=== PATIENT | male | born 1945 | race Two or more races ===

== ENCOUNTER → 2020-06-10 12:54 | Outpatient (BNVA) | payer MEDICARE, SELFPAY | PROVIDERS: PCP Internal Medicine; Referring Provider Internal Medicine; Visit Provider Student in an Organized Health Care Education/Training Program | DX: M1A.00X0 Idiopathic chronic gout, unspecified site, without tophus (tophi) (principal) | CPT/HCPCS: 99212 ==

== ENCOUNTER 2020-07-08 12:46 | Outpatient (REF) | payer MEDICARE, MEDICAID, SELFPAY ==
[2020-07-08 14:24] LABS: Uric Acid 3.7 mg/dL (3.4-7.0)
[2020-07-08 14:45] LABS: Thyroid Stimulating Hormone 1.24 uIU/mL (0.32-4.0)
== END 2020-07-08 12:47 | disposition home or self-care (01) ==
LOC: HO.LAB 12:46
PROVIDERS: Absent Provider Student in an Organized Health Care Education/Training Program; PCP Internal Medicine; Visit Provider Internal Medicine
DX: E03.9 Hypothyroidism, unspecified (principal); M10.9 Gout, unspecified
CPT/HCPCS: 84443; 84550

== ENCOUNTER 2020-10-09 10:10 | Outpatient (REF) | payer MEDICARE, MEDICAID, SELFPAY ==
[2020-10-09 11:40] LABS: MANUAL DIFF FLAG NO
[2020-10-09 11:54] LABS: Basophils Percent Auto 0.4 % (0-2); Eosinophils Absolute Auto 0.5 X10*3/uL (0.0-0.4); Eosinophils Percent Auto 4.9 % (0-4); Hematocrit 37.4 % (42-52); Hemoglobin 12.9 g/dl (14.0-18.0); Imm Gran Abs Auto 0.03 X10*3/uL (0.00-0.03); Imm Gran Pct Auto 0.3 % (0.0-0.4); Lymphocytes Absolute Auto 2.1 X10*3/uL (1.2-4.9); Mean Corpuscular HGB Conc 34.5 g/dl (31.0-36.0); Monocytes Absolute Auto 0.9 X10*3/uL (0.1-1.2); Monocytes Percent Auto 8.6 % (2-11); Neutrophils Absolute Auto 7.3 X10*3/uL (2.0-8.3); Neutrophils Percent Auto 66.8 % (45-73); Platelet Count 268 X10*3/uL (160-400); Red Cell Distribution Width 16.9 % (11.0-16.0); White Blood Count 10.9 X10*3/uL (4.8-10.8)
[2020-10-09 12:56] LABS: Anion Gap 14 (12-20); Blood Urea Nitrogen 18 mg/dL (9-16); Calcium 9.4 mg/dL (8.4-10.2); Carbon Dioxide 30 mmol/L (22-29); Chloride 100 mmol/L (96-108); Estimated Glomerular Filt Rate > 60; Glucose Random 95 mg/dL (60-115); Sodium 139 mmol/L (135-145); Uric Acid 3.2 mg/dL (3.4-7.0)
== END 2020-10-09 10:11 | disposition home or self-care (01) ==
LOC: HO.LAB 10:10
PROVIDERS: Student in an Organized Health Care Education/Training Program; PCP Internal Medicine; Visit Provider Internal Medicine
DX: Z00.00 Encounter for general adult medical examination without abnormal findings (principal); M1A.00X0 Idiopathic chronic gout, unspecified site, without tophus (tophi); R51.9 Headache, unspecified
CPT/HCPCS: 36415; 80048; 84550; 85025

== ENCOUNTER → 2021-06-09 12:21 | Outpatient (BNVA) | payer MEDICARE, MEDICAID, SELFPAY | PROVIDERS: PCP Internal Medicine; Visit Provider Nurse Practitioner Family | DX: M10.9 Gout, unspecified (principal) | CPT/HCPCS: 99212 ==

== ENCOUNTER 2022-04-27 07:11 | Outpatient (REF) | payer MEDICARE, SELFPAY ==
[2022-04-27 07:26] LABS: MANUAL DIFF FLAG NO
[2022-04-27 07:41] LABS: Basophils Absolute Auto 0.1 X10*3/uL (0.0-0.2); Basophils Percent Auto 0.5 % (0-2); Eosinophils Absolute Auto 0.4 X10*3/uL (0.0-0.4); Eosinophils Percent Auto 3.6 % (0-4); Hematocrit 36.6 % (42.0-52.0); Hemoglobin 12.9 g/dl (14.0-18.0); Imm Gran Abs Auto 0.05 X10*3/uL (0.00-0.03); Imm Gran Pct Auto 0.4 % (0.0-0.4); Lymphocytes Absolute Auto 3.1 X10*3/uL (1.2-4.9); Mean Corpuscular HGB Conc 35.2 g/dl (31.0-36.0); Mean Corpuscular Hemoglobin 33.3 pg (27.0-33.0); Mean Corpuscular Volume 94.6 fL (80.0-98.0); Mean Platelet Volume 10.6 fL (9.4-12.4); Monocytes Absolute Auto 1.1 X10*3/uL (0.1-1.2); Monocytes Percent Auto 9.8 % (2-11); Neutrophils Absolute Auto 6.5 x10*3/uL (2.0-8.3); Neutrophils Percent Auto 57.7 % (45-73); Platelet Count 197 X10*3/uL (160-400); Red Blood Count 3.87 X10*6/uL (4.60-5.80); Red Cell Distribution Width 15.7 % (11.0-16.0); White Blood Count 11.2 X10*3/uL (4.8-10.8)
[2022-04-27 07:59] LABS: Alanine Aminotransferase 27 U/L (0-40); Albumin Level 3.8 g/dL (3.5-5.0); Alkaline Phosphatase 111 U/L (39-117); Anion Gap 17 (12-20); Aspartate Amino Transferase 45 U/L (5-37); Bilirubin Total 0.8 mg/dL (0.0-1.0); Blood Urea Nitrogen 20 mg/dL (9-16); Calcium 9.2 mg/dL (8.4-10.2); Carbon Dioxide 24 mmol/L (22-29); Chloride 106 mmol/L (96-108); Cholesterol 157 mg/dL; Estimated Glomerular Filt Rate > 60; Glucose Fasting 101 mg/dL (60-99); HDL Cholesterol 74 mg/dL; LDL Cholesterol Calculated 63 mg/dl; Potassium 4.6 mmol/L (3.3-5.1); Sodium 142 mmol/L (135-145); Total Protein 6.6 g/dL (6.5-8.0); Triglycerides 103 mg/dL; Uric Acid 3.4 mg/dL (3.4-7.0)
[2022-04-27 08:21] LABS: Thyroid Stimulating Hormone 0.91 uIU/mL (0.32-4.0)
== END 2022-04-27 07:12 | disposition home or self-care (01) ==
LOC: HO.LAB 07:11
PROVIDERS: PCP Internal Medicine; Visit Provider Internal Medicine
DX: Z00.00 Encounter for general adult medical examination without abnormal findings (principal); M10.9 Gout, unspecified; Z13.0 Encounter for screening for diseases of the blood and blood-forming organs and certain disorders involving the immune mechanism
CPT/HCPCS: 36415; 80053; 80061; 84443; 84550; 85025

== ENCOUNTER 2023-01-04 08:48 | Outpatient (REF) | payer MEDICARE, SELFPAY ==
[2023-01-04 09:11] LABS: MANUAL DIFF FLAG NO
[2023-01-04 09:45] LABS: Basophils Percent Auto 0.4 % (0-2); Eosinophils Absolute Auto 0.1 X10*3/uL (0.0-0.4); Eosinophils Percent Auto 0.8 % (0-4); Hematocrit 37.8 % (42.0-52.0); Hemoglobin 13.1 g/dl (14.0-18.0); Imm Gran Abs Auto 0.05 X10*3/uL (0.00-0.03); Imm Gran Pct Auto 0.5 % (0.0-0.4); Lymphocytes Absolute Auto 1.9 X10*3/uL (1.2-4.9); Lymphocytes Percent Auto 17.5 % (20-40); Mean Corpuscular HGB Conc 34.7 g/dl (31.0-36.0); Mean Corpuscular Hemoglobin 33.2 pg (27.0-33.0); Mean Corpuscular Volume 95.7 fL (80.0-98.0); Mean Platelet Volume 10.7 fL (9.4-12.4); Monocytes Absolute Auto 0.9 X10*3/uL (0.1-1.2); Monocytes Percent Auto 8.7 % (2-11); Neutrophils Absolute Auto 7.7 x10*3/uL (2.0-8.3); Neutrophils Percent Auto 72.1 % (45-73); Platelet Count 189 X10*3/uL (160-400); Red Blood Count 3.95 X10*6/uL (4.60-5.80); Red Cell Distribution Width 15.6 % (11.0-16.0); White Blood Count 10.6 X10*3/uL (4.8-10.8)
[2023-01-04 10:37] LABS: Alanine Aminotransferase 26 U/L (0-40); Albumin Level 3.8 g/dL (3.5-5.0); Alkaline Phosphatase 100 U/L (39-117); Anion Gap 17 (12-20); Aspartate Amino Transferase 50 U/L (5-37); Bilirubin Total 1.2 mg/dL (0.0-1.0); Blood Urea Nitrogen 27 mg/dL (9-16); Calcium 9.5 mg/dL (8.4-10.2); Carbon Dioxide 24 mmol/L (22-29); Chloride 106 mmol/L (96-108); Cholesterol 146 mg/dL; Estimated Glomerular Filt Rate > 60; Glucose Fasting 98 mg/dL (60-99); HDL Cholesterol 77 mg/dL; LDL Cholesterol Calculated 54 mg/dl; Potassium 5.1 mmol/L (3.3-5.1); Sodium 142 mmol/L (135-145); Total Protein 6.9 g/dL (6.5-8.0); Triglycerides 76 mg/dL
[2023-01-04 10:56] LABS: Thyroid Stimulating Hormone 0.73 uIU/mL (0.32-4.0); Uric Acid 3.6 mg/dL (3.4-7.0)
== END 2023-01-04 08:49 | disposition home or self-care (01) ==
LOC: HO.LAB 08:48
PROVIDERS: PCP Internal Medicine; Visit Provider Internal Medicine
DX: E03.9 Hypothyroidism, unspecified (principal); D64.9 Anemia, unspecified; N28.9 Disorder of kidney and ureter, unspecified; M10.9 Gout, unspecified
CPT/HCPCS: 36415; 80053; 80061; 84443; 84550; 85025

== ENCOUNTER 2023-02-03 20:18 | Emergency (ER) | payer MEDICARE, MEDICAID, SELFPAY ==
--- NOTE | ~2023-02-03 | XR_ITS ---
EXAMINATION: XR SHOULDER, RIGHT CLINICAL INFORMATION: Fall. Pain. COMPARISON: None available. TECHNIQUE: Three views of the right shoulder. FINDINGS: Comminuted fracture of the humeral head. Fracture through the surgical neck extending into the greater tuberosity. Fracture fragments are mildly moderately displaced. Fracture deformity further defined with CT. No dislocation. Mild degenerative change of the acromioclavicular joint. XR/XR shoulder RT min 2V IMPRESSION: Comminuted fracture of the humeral head.
--- NOTE | 2023-02-03 20:27 | ED_ITS ---
HPI - Fall General Chief Complaint: Fall Stated Complaint: FALL WITH R SHOULDER DEFORMITY Time Seen by Provider: 02/03/23 20:27 Source: patient Mode of arrival: EMS Limitations: no limitations History of Present Illness HPI Narrative: Patient alcoholic walks with a cane had last drink earlier morning today patient was walking on the pavement lost balance and fell landed on his right shoulder, no loss of consciousness hitting his right shoulder to the ground no head injury no other injuries give with ecchymosis and obvious deformity of the right shoulder no other injuries Related Data Home Medications Medication Instructions Recorded Confirmed naproxen 250 mg tablet 250 mg PO BID PRN 06/09/21 11/10/22 Previous Rx's Medication Instructions Recorded folic acid 1 mg tablet 1 mg PO DAILY #30 tabs 06/25/21 allopurinol 300 mg tablet 300 mg PO DAILY #90 tabs 08/18/22 omeprazole 20 mg capsule,delayed 20 mg PO DAILY #90 caps 08/18/22 release triamcinolone acetonide 0.5 % 1 appl topical TID #15 grams 11/10/22 topical cream oxycodone 5 mg tablet 5 mg PO Q6H PRN pain #20 tabs 02/03/23 Allergies Allergy/AdvReac Type Severity Reaction Status Date / Time No Known Allergies Allergy Verified 11/10/22 10:29 [No Known Allergies*] Review of Systems Review of Systems: Yes all other systems are reviewed and are negative PMFSH Past Medical History Medical History Gout Hx of essential hypertension Hypertension Screening for hypercholesterolemia Surgical History No pertinent past surgical history Family History Family History Mother Ovarian cancer Father Heart attack Social History Social History Housing: House Alcohol intake: current Alcohol intake frequency: a few times a week Alcohol type: beer and hard liquor Patient Tobacco Use Status: Current everyday Tobacco user Tobacco use type: Cigarette Cigarettes Per Day: 8 Years Smoked: 55 e-Cigarette/Vaping Use: Never Used Second Hand Smoke Exposure: Yes Advance Directives: No Advance Directives Information Provided: No service: No Current occupational status: retired Cognitive needs: Yes (cane/walker) Hearing needs: No Vision needs: Yes (glasses) Physical Exam Vital Signs: Vital Signs: Last Vital Signs Temp 97.9 F 02/04/23 00:00 Pulse 84 02/04/23 00:00 Resp 16 02/04/23 00:00 BP 97/50 L 02/04/23 00:00 Pulse Ox 94 02/04/23 00:00 O2 Del Method Room Air 02/04/23 00:00 BMI result Body Mass Index 22.1 Appearance: Alert. Oriented X3. No acute distress. Eyes: PERRLA, No Nystagmus ENT: Pharynx normal. Oral Mucosa moist atraumatic normocephalic Neck: Normal inspection. Neck supple. No midline tenderness CVS: Normal heart rate and rhythm. Pulses normal. Respiratory: No respiratory distress. Equal air entry bilateral, no wheezing/rales/rhonchi Abdomen: Soft and nontender. Bowel sounds are present, no mass palpable, no CVA tenderness Skin: Skin warm and dry. Normal skin color. Normal skin turgor. Extremities: No lower extremity edema. No calf tenderness right arm in the sling with ecchymosis and tenderness and upper end humerus Neuro: Oriented X 3. No motor deficit. No sensory deficit.No cerebellar signs , cranial nerves II-XII intact Medications Administered Discontinued Medications Generic Name Dose Route Start Last Admin Trade Name Freq PRN Reason Stop Dose Admin Oxycodone HCl 10 mg 02/03/23 20:59 02/03/23 21:33 Oxycodone Hcl Immed Release 5 Mg Tablet PO 02/03/23 21:00 10 mg ONCE ONE Administration Medical Decision Making Medical Decision Making [facility] Narrative: Patient status post mechanical fall with right upper and feet humerus fracture sling was applied advised to follow with orthopedic no other injuries patient was able to ambulate in the ER Discharge Plan Discharge Clinical Impression: Right humeral fracture Patient Disposition: Home, Self-Care Instructions: Arm Fracture in Adults (ED) Additional Instructions: You have fracture of the right humerus Wear the sling for support Follow-up with orthopedics Pain medication as prescribed Prescriptions: New oxycodone 5 mg tablet 5 mg PO Q6H PRN (Reason: pain) Qty: 20 0RF Rx Instructions: Partial Fill upon patient request. No Action omeprazole 20 mg capsule,delayed release(DR/EC) 20 mg PO DAILY Qty: 90 8RF allopurinol 300 mg tablet 300 mg PO DAILY Qty: 90 8RF folic acid 1 mg tablet 1 mg PO DAILY Qty: 30 0RF triamcinolone acetonide 0.5 % cream 1 appl topical TID Qty: 15 3RF naproxen 250 mg tablet 250 mg PO BID PRN Referrals: Sameer Mendez MD [Physician] - 1 week Interventions: ED Discharge Assessment Last Done: 02/04/23 00:10 Discharge Date/Time: 02/04/23 00:13
[2023-02-03 20:44] VITALS: BP 122/60; PULSE 101; O2SAT 94; BMI 22.1
[2023-02-03 21:32] VITALS: BP 119/74; PULSE 109; RESP 16; TEMP 36.9; O2SAT 94
[2023-02-03] MEDS: oxyCODONE HCl Immed Release 5 MG TABLET 10 MG PO (21:33)
[2023-02-04] VITALS: BP 97/50; PULSE 84; RESP 16; TEMP 36.6; O2SAT 94
== END 2023-02-04 00:13 | disposition home or self-care (01) ==
PROVIDERS: Emergency Provider Internal Medicine
DX: S42.301A Unspecified fracture of shaft of humerus, right arm, initial encounter for closed fracture (principal); F17.210 Nicotine dependence, cigarettes, uncomplicated; W01.0XXA Fall on same level from slipping, tripping and stumbling without subsequent striking against object, initial encounter; Y93.9 Activity, unspecified; Y92.9 Unspecified place or not applicable; Y99.9 Unspecified external cause status; Z79.899 Other long term (current) drug therapy; Z71.6 Tobacco abuse counseling
CPT/HCPCS: 73030; 99283; 99284

== ENCOUNTER 2023-02-21 08:15 | Outpatient (AMB) | payer MEDICARE, SELFPAY ==
--- NOTE | 2023-02-21 08:24 | A.OFFVIS_ITS ---
Intake Vital Signs 02/21/23 08:31 Height 5 ft 3 in Weight 100 lb BMI 17.7 Intake Visit Reasons: FC - Right shoulder fx, 02/03/23 Intake Note: Rikki is a 77 year old right hand dominant male who presents today with his nephew for a fracture care appointment s/p right shoulder fx, DOI 02/03/23. Patient reports he was walking without a cane and he fell on the pavement landing on his right side. Patient states his pain is on the anterior aspect of the right shoulder. Allergies No Known Allergies [No Known Allergies*] Allergy (Verified 02/21/23 08:30) HPI FC - Right shoulder fx, 02/03/23 HPI Details 74-year-old right hand dominant male who presents in the office today with his nephew, as a new patient, for an evaluation of right shoulder pain. The patient was seen in the ED on 02/03/2023 status post being under the influence of alcohol which caused him to lose his balance and he fell landing on his right shoulder. X-rays of the right shoulder were obtained. He was placed in a sling and referred to orthopedics. The patient reports in the office he was ambulating without his cane when he fell on the pavement landing on his right side. He claims his pain is on the anterior aspect of the right shoulder. He states he is sore. Patient ambulates with a cane. [facility] Medical History Gout Hx of essential hypertension Hypertension Screening for hypercholesterolemia Surgical History No pertinent past surgical history Family History Mother Ovarian cancer Father Heart attack Social History Housing: House Alcohol intake: current Alcohol intake frequency: a few times a week Alcohol type: beer and hard liquor Patient Tobacco Use Status: Current everyday Tobacco user Tobacco use type: Cigarette Cigarettes Per Day: 8 Years Smoked: 55 e-Cigarette/Vaping Use: Never Used Second Hand Smoke Exposure: Yes service: No Current occupational status: retired Cognitive needs: Yes (cane/walker) Hearing needs: No Vision needs: Yes (glasses) Review of Systems Const All systems reviewed & are unremarkable except as noted in HPI and below Physical Exam Vital Signs: BMI result Body Mass Index 17.7 Const General: cooperative, healthy appearing, comfortable, no acute distress, well developed and alert Orientation/consciousness: patient oriented x3 HEENT Head: Yes normal to inspection, Yes normocephalic and Yes atraumatic Eyes General: appearance normal, both eyes and all related structures Resp Effort & Inspection: normal respiratory effort and able to speak in complete sentences Cardio Rate: regular rate Peripheral pulses: Peripheral pulses 2+ throughout GI Palpation (GI): Soft to palpation Skin Lesions: no lesions Rashes: no rashes Neuro General: patient oriented x3 Extrem Other: Right shoulder: Able to demonstrate 10 degrees of forward flexion. Able to demonstrate wrist flexion against resistance, but is significantly limited due to weakness. Edema in the hand and all digits. Sensation intact. Office Procedures Fracture Care Fracture Billing Code: Fracture Billing Code Assessment & Plan Assessment & Plan (1) Comminuted fracture of right humerus: Code(s): S42.351A - Displaced comminuted fracture of shaft of humerus, right arm, initial encounter for closed fracture Plan Mr. Razo is a 74-year-old right hand dominant male who presents in the office today with his nephew, as a new patient, for an evaluation of right shoulder pain. The patient was seen in the ED on 02/03/2023 status post being under the influence of alcohol which caused him to lose his balance and he fell landing on his right shoulder. X-rays of the right shoulder were obtained. He was placed in a sling and referred to orthopedics. The patient reports in the office he was ambulating without his cane when he fell on the pavement landing on his right side. He claims his pain is on the anterior aspect of the right shoulder. He states he is sore. Patient ambulates with a cane. I educated the patient he can work on gentle elbow, wrist, and hand ROM. I discussed the roles of conservative treatment verses surgical intervention. I will refer the patient for physical therapy to work on ROM of the elbow, wrist, and hand with some gentle shoulder ROM. Due to the patient stating his sling was broken he was given a new ultra sling without the abduction pillow, off the shelf. I educated the patient that while at home he should let the hand hang. Follow up will be in 4-6 weeks with x-rays, or sooner if needed. X-rays of the right shoulder which were obtained while in the office today and were reviewed by me, Sarah Quintana PA-C, redemonstrated a comminuted right proximal humerus fracture. X-rays of the right shoulder, obtained on 02/03/2023, revealed: Comminuted fracture of the humeral head. Orders: Orders XR shoulder RT min 2V Today M25.519 - Pain in unspecified shoulder PT Evaluation and Treatment Today S42.351A - Displaced comminuted fracture of shaft of humerus, right arm, initial encounter for closed fracture Patient Instructions: Scribed for Sarah Quintana PA-C by Paulina Marrero director medical writing, on 02/21/2023 at 8:16 am, EST. Your attestation Coding Level of Care Code New Pt Level 4 (89669) Diagnoses Comminuted fracture of right humerus S42.351A CPT Codes Fracture Care - Fracture Billing Code: Fracture Billing Code ([id number])
[2023-02-21 08:31] VITALS: BMI 17.7
== END 2023-02-21 09:00 | disposition home or self-care (01) ==
PROVIDERS: Visit Provider Physician Assistant
DX: S42.351A Displaced comminuted fracture of shaft of humerus, right arm, initial encounter for closed fracture (principal); M25.511 Pain in right shoulder
CPT/HCPCS: 99204

== ENCOUNTER 2023-02-21 11:21 | Outpatient (REF) | payer MEDICARE, SELFPAY ==
--- NOTE | ~2023-02-21 | XR_ITS ---
EXAMINATION: XR SHOULDER, RIGHT CLINICAL INFORMATION: Pain COMPARISON: 02/03/2023 TECHNIQUE: Two views of the right shoulder. FINDINGS: Comminuted progressively impacted and minimally displaced fracture of the humeral neck is again seen. There is more progressive rotation and angulation to the fracture when compared to the prior study. Heterotopic ossification formation starting to appear. Mild hypertrophic degenerative changes in the acromioclavicular joint XR/XR shoulder RT min 2V IMPRESSION: Comminuted progressively impacted and angulated fracture of the right humeral neck. There is more progressive rotation and angulation when compared to the prior study.
== END 2023-02-21 11:22 | disposition home or self-care (01) ==
LOC: HO.HOSX 11:21
PROVIDERS: Visit Provider Physician Assistant
DX: S42.351A Displaced comminuted fracture of shaft of humerus, right arm, initial encounter for closed fracture (principal); W18.30XA Fall on same level, unspecified, initial encounter; Y93.9 Activity, unspecified; Y92.9 Unspecified place or not applicable; Y99.9 Unspecified external cause status
CPT/HCPCS: 73030; 99202

== ENCOUNTER 2023-03-21 12:30 | Outpatient (REF) | payer MEDICARE, SELFPAY | END 2023-03-21 12:31 | disposition home or self-care (01) | LOC: HO.HOSX 12:30 | PROVIDERS: Visit Provider Physician Assistant | DX: Z13.89 Encounter for screening for other disorder (principal) ==

== ENCOUNTER 2023-05-09 10:59 | Outpatient (AMB) | payer MEDICARE, SELFPAY ==
[2023-05-09 11:02] VITALS: BP 128/68; PULSE 85; O2SAT 98; BMI 16.3
--- NOTE | 2023-05-09 11:02 | MHC.PC.OV ---
Vital Signs 05/09/23 11:02 Height 5 ft 3 in Weight 92 lb BMI 16.3 BP 128/68 Blood Pressure Location Lt brachial Position Sitting Pulse 85 Pulse Source Pulse Oximeter Pulse Oximetry (%) 98 Oxygen Delivery Method Room Air Intake Visit Reasons: 3 month f/u Flight Hostess: Present Allergies No Known Allergies [No Known Allergies*] Allergy (Verified 05/09/23 11:03) Medication List - Last Reconciled 05/09/23 by Noah Alvarenga MD allopurinol 300 mg PO DAILY folic acid 1 mg PO DAILY naproxen 250 mg PO BID PRN omeprazole 20 mg PO DAILY oxycodone 5 mg PO Q6H PRN oxycodone 10 mg PO Q6H PRN triamcinolone acetonide 0.5% 1 appl topical TID Tobacco use date assessed: 02/10/23 Fall risk assessment: 1 Fall in past year Last assessed Fall Risk: 05/09/23 Dental Screening Dental Screen Date: 05/09/23 Did you have a dental visit in the last 12 months?: No Did you have a dental problem in the last 6 months where you did not have access to dental care?: No Was dental information given to patient?: Patient has dentist HPI 3 month f/u HPI Details comminuted fx right hum 3 months ago; was in rehab but I will not prescribe narcotics for an injury that occurred 3 months ago; gout on rx [facility] Medical History Screening for hypercholesterolemia Hypertension Gout Hx of essential hypertension Surgical History No pertinent past surgical history Family History Mother Ovarian cancer Father Heart attack Social History Housing: House Alcohol intake: current Alcohol intake frequency: a few times a week Alcohol type: beer and hard liquor Patient Tobacco Use Status: Current everyday Tobacco user Tobacco use type: Cigarette Cigarettes Per Day: 8 Years Smoked: 55 e-Cigarette/Vaping Use: Never Used Second Hand Smoke Exposure: Yes service: No Current occupational status: retired Cognitive needs: Yes (cane/walker) Hearing needs: No Vision needs: Yes (glasses) Questionnaire PHQ-9 Over the last 2 weeks, how often have you been bothered by any of the following problems? 1. Little interest or pleasure in doing things: not at all 2. Feeling down, depressed, or hopeless: not at all 3. Trouble falling or staying asleep, or sleeping too much: not at all 4. Feeling tired or having little energy: not at all 5. Poor appetite or overeating: not at all 6. Feeling bad about yourself - or that you are a failure or have let yourself or your family down: not at all 7. Trouble concentrating on things, such as reading the newspaper or watching television: not at all 8. Moving or speaking so slowly that other people could have noticed. Or the opposite - being so fidgety or restless that you have been moving around a lot more than usual: not at all 9. Thoughts that you would be better off or of hurting yourself in some way: not at all Total score: 0 Depression Screening Interpretation: Negative [id number] - PHQ-9 Billing: Yes Source: Developed by Drs. King García, Amrita Macdonald, David Larios and colleagues, with an educational marcella from [employer]. Thrive Questionnaire Date Thrive assessed: 11/10/22 Currently or been in a relationship where the following occur: no concerns reported AUDIT C Alcohol Use Questionnaire (AUDIT-C) 1. How often do you have a drink containing alcohol?: 2-3 times a week 2. How many drinks containing alcohol do you have on a typical day when you are drinking?: 1 or 2 Total Score: 3 Score Reviewed/Action Taken: Yes SRAVAN-7 AMB Questionnaire SRAVAN-7 Date SRAVAN - 7 assessed: 11/10/22 Source: Developed by Drs. King García, Amrita Macdonald, David Larios and colleagues, with an educational marcella from [employer]. Review of Systems Const Denies chills, Denies headache(s) and Denies weight loss ENT Denies headache(s) Card Denies chest pain, Denies syncope, Denies irregular heart rhythm and Denies dyspnea Resp Denies chest congestion, Denies cough and Denies dyspnea GI Denies abdominal pain, Denies change in stool character, Denies nausea and Denies vomiting Musc Denies deformity and Denies joint swelling Neuro Denies syncope and Denies headache(s) Physical exam (Primary Care) Vital Signs: Last Vital Signs Pulse 85 05/09/23 11:02 BP 128/68 05/09/23 11:02 Pulse Ox 98 05/09/23 11:02 Oxygen Delivery Method Room Air 05/09/23 11:02 BMI result Body Mass Index 16.3 Tobacco/Smoking Status: Tobacco use Status Tobacco use date assessed 02/10/23 05/09/23 11:04 Patient Tobacco Use Status Current everyday Tobacco 05/09/23 11:04 Tobacco use type Cigarette 05/09/23 11:04 e-Cigarette/Vaping Use Never Used 05/09/23 11:04 Are you ready to quit: No Number of minutes spent counselin PHQ-9: PHQ-9 Score PHQ-9: Total score 0 05/09/23 11:15 Depression Screening Interpretation: Negative Thrive Assessment: Date of Thrive Assessment Date Thrive assessed 11/10/22 05/09/23 11:04 Currently or been in a relationship where the following occur: no concerns reported Advance Care Planning discussion: On file, no changes Forms completed: Health Care Proxy Const General: cooperative, healthy appearing and no acute distress Orientation/consciousness: oriented to person, oriented to place and oriented to time HENPR Head: Yes normal to inspection, Yes normocephalic and Yes atraumatic Mouth: Normal oral and palatal mucosa present and tongue normal Throat: Yes posterior oropharynx normal and Yes uvula midline Eyes General: appearance normal, both eyes and all related structures Neck Neck: Yes normal visual inspection, Yes full ROM and Yes no lymphadenopathy Thyroid: Thyroid normal Carotids: normal carotid upstroke Chest Chest palpation & inspection: normal inspection of the chest Resp Effort & Inspection: normal respiratory effort and able to speak in complete sentences Auscultation: clear to auscultation bilaterally Cardio Jugular venous distension: no JVD Palpation: normal PMI Rate: regular rate Rhythm: regular rhythm Heart sounds: S1 normal heart sound present and S2 normal heart sound present GI Inspection: Yes normal to inspection Palpation (GI): Soft to palpation and No hepatosplenomegaly present Auscultation: normal bowel sounds General: Yes no CVA tenderness Back/Spine/Pelvis Back: no CVA tenderness Skin General skin exam: no rashes or lesions noted Neuro General: oriented to person, oriented to place and oriented to time Extrem General: Yes normal to inspection and Yes full ROM Assessment and Plan Assessment & Plan (1) Comminuted fracture of right humerus: Code(s): S42.351A - Displaced comminuted fracture of shaft of humerus, right arm, initial encounter for closed fracture Plan: stable (2) Gout: Comment: stable; same rx Code(s): M10.9 - Gout, unspecified Qualifiers: Gout site: unspecified site Gout etiology: idiopathic Chronicity: chronic Presence of tophus: without tophus Qualified Code(s): M1A.00X0 - Idiopathic chronic gout, unspecified site, without tophus (tophi) Plan: stable Orders: Orders Complete Blood Count Auto Diff Today D64.9 - Anemia, unspecified Comprehensive [place]. Panel Fast Today N28.9 - Disorder of kidney and ureter, unspecified Lipid Panel Today E78.5 - Hyperlipidemia, unspecified Coding Level of Care Code Est Pt Level 3 (15926) Diagnoses Comminuted fracture of right humerus S42.351A Idiopathic chronic gout without tophus, unspecified site M1A.00X0 Gout site: unspecified site Gout etiology: idiopathic Chronicity: chronic Presence of tophus: without tophus Additional Codes Vital Signs *Quality* - Advance Care Planning discussion: On file, no changes ([id number])
== END 2023-05-09 11:24 | disposition home or self-care (01) ==
PROVIDERS: Visit Provider Internal Medicine
DX: S42.351A Displaced comminuted fracture of shaft of humerus, right arm, initial encounter for closed fracture (principal); M1A.00X0 Idiopathic chronic gout, unspecified site, without tophus (tophi); Z00.00 Encounter for general adult medical examination without abnormal findings
CPT/HCPCS: 1123F; 99213

== ENCOUNTER 2023-07-03 09:55 | Outpatient (AMB) | payer MEDICARE, SELFPAY ==
[2023-07-03 10:01] VITALS: BP 142/100; BMI 15.6
--- NOTE | 2023-07-03 10:01 | A.OFFPC_ITS ---
Vital Signs 07/03/23 10:01 Height 5 ft 3 in Weight 88 lb BMI 15.6 BP 142/100 H Blood Pressure Location Lt brachial Position Sitting Pulse Source Pulse Oximeter Oxygen Delivery Method Room Air Intake Visit Reasons: 86 lbs BMI 15 Fixed Income Manager: Present Allergies No Known Allergies [No Known Allergies*] Allergy (Verified 07/03/23 10:01) Medication List - Last Reconciled 07/03/23 by Noah Alvarenga MD allopurinol 300 mg PO DAILY folic acid 1 mg PO DAILY naproxen 250 mg PO BID PRN omeprazole 20 mg PO DAILY oxycodone 5 mg PO Q6H PRN oxycodone 10 mg PO Q6H PRN Tobacco use date assessed: 02/10/23 Fall risk assessment: 1 Fall in past year Last assessed Fall Risk: 07/03/23 Dental Screening Dental Screen Date: 07/03/23 Did you have a dental visit in the last 12 months?: No Did you have a dental problem in the last 6 months where you did not have access to dental care?: No Was dental information given to patient?: Patient has dentist HPI 86 lbs BMI 15 HPI Details recurrent cerumen imp; sees Dr Sunshine and needs referral [facility] Medical History Screening for hypercholesterolemia Hypertension Gout Hx of essential hypertension Surgical History No pertinent past surgical history Family History Mother Ovarian cancer Father Heart attack Social History Housing: House Alcohol intake: current Alcohol intake frequency: a few times a week Alcohol type: beer and hard liquor Patient Tobacco Use Status: Current everyday Tobacco user Tobacco use type: Cigarette Cigarettes Per Day: 8 Years Smoked: 55 Packs per year/per ci.00 e-Cigarette/Vaping Use: Never Used Second Hand Smoke Exposure: Yes service: No Current occupational status: retired Cognitive needs: Yes (cane/walker) Hearing needs: No Vision needs: Yes (glasses) Questionnaire PHQ-9 Over the last 2 weeks, how often have you been bothered by any of the following problems? 1. Little interest or pleasure in doing things: not at all 2. Feeling down, depressed, or hopeless: not at all 3. Trouble falling or staying asleep, or sleeping too much: not at all 4. Feeling tired or having little energy: not at all 5. Poor appetite or overeating: not at all 6. Feeling bad about yourself - or that you are a failure or have let yourself or your family down: not at all 7. Trouble concentrating on things, such as reading the newspaper or watching television: not at all 8. Moving or speaking so slowly that other people could have noticed. Or the opposite - being so fidgety or restless that you have been moving around a lot more than usual: not at all 9. Thoughts that you would be better off or of hurting yourself in some way: not at all Total score: 0 Depression Screening Interpretation: Negative Depression Screening Done: Yes 29472 - PHQ-9 Billing: Yes Source: Developed by Drs. King García, David Monsalve and colleagues, with an educational marcella from [employer]. Thrive Questionnaire Date Thrive assessed: 11/10/22 AUDIT C Alcohol Use Questionnaire (AUDIT-C) 1. How often do you have a drink containing alcohol?: 2-3 times a week 2. How many drinks containing alcohol do you have on a typical day when you are drinking?: 1 or 2 Total Score: 3 Score Reviewed/Action Taken: Yes SRAVAN-7 AMB Questionnaire SRAVAN-7 Date SRAVAN - 7 assessed: 11/10/22 Source: Developed by Drs. King García, David Monsalve and colleagues, with an educational marcella from [employer]. Review of Systems Const Denies chills, Denies headache(s) and Denies weight loss ENT Denies headache(s) Card Denies chest pain, Denies syncope, Denies irregular heart rhythm and Denies dyspnea Resp Denies chest congestion, Denies cough and Denies dyspnea GI Denies abdominal pain, Denies change in stool character, Denies nausea and Denies vomiting Musc Denies deformity and Denies joint swelling Neuro Denies syncope and Denies headache(s) Physical exam (Primary Care) Vital Signs: Last Vital Signs BP 142/100 H 07/03/23 10:01 Oxygen Delivery Method Room Air 07/03/23 10:01 BMI result Body Mass Index 15.6 Tobacco/Smoking Status: Tobacco use Status Tobacco use date assessed 02/10/23 07/03/23 10:09 Patient Tobacco Use Status Current everyday Tobacco 07/03/23 10:09 Tobacco use type Cigarette 07/03/23 10:09 e-Cigarette/Vaping Use Never Used 07/03/23 10:09 PHQ-9: PHQ-9 Score PHQ-9: Total score 0 07/03/23 10:18 Depression Screening Interpretation: Negative Thrive Assessment: Date of Thrive Assessment Date Thrive assessed 11/10/22 07/03/23 10:09 Const General: cooperative, comfortable, no acute distress and alert Neck Neck: Yes no lymphadenopathy Thyroid: Thyroid normal Resp Effort & Inspection: normal respiratory effort Auscultation: clear to auscultation bilaterally Percussion: percussion normal Cardio Jugular venous distension: no JVD Palpation: normal PMI Rate: regular rate Rhythm: regular rhythm Heart sounds: S1 normal heart sound present and S2 normal heart sound present GI Inspection: Yes normal to inspection Palpation (GI): No hepatosplenomegaly present Skin General skin exam: no rashes or lesions noted Extrem General: Yes no clubbing, cyanosis or edema Assessment and Plan Assessment & Plan (1) Cerumen debris on tympanic membrane: Code(s): H61.20 - Impacted cerumen, unspecified ear Plan: ref ent Orders: Referrals Ear/Nose/Throat Referral H61.20 - Impacted cerumen, unspecified ear Coding Level of Care Code Est Pt Level 3 (95110) Diagnoses Cerumen debris on tympanic membrane H61.20
== END 2023-07-03 10:19 | disposition home or self-care (01) ==
PROVIDERS: PCP Internal Medicine; Visit Provider Internal Medicine
DX: H61.23 Impacted cerumen, bilateral (principal)
CPT/HCPCS: 99213

== ENCOUNTER 2023-08-23 10:37 | Outpatient (AMB) | payer MEDICARE, SELFPAY ==
[2023-08-23 10:38] VITALS: BP 138/84; PULSE 62; O2SAT 82; BMI 16.0
--- NOTE | 2023-08-23 10:38 | A.OFFPC_ITS ---
Vital Signs 08/23/23 10:38 Height 5 ft 3 in Weight 90 lb 2 oz BMI 16.0 BP 138/84 Blood Pressure Location Lt brachial Position Sitting Pulse 62 Pulse Source Pulse Oximeter Pulse Oximetry (%) 82 L Oxygen Delivery Method Room Air Intake Visit Reasons: 3mth f/u Surgical Instrument Repair Specialist Required: No Field Crew Chief: Not Required per policy Accompanied by: Self / Same As Patient Allergies No Known Allergies [No Known Allergies*] Allergy (Verified 08/23/23 10:39) Medication List - Last Reconciled 08/23/23 by Noah Alvarenga MD allopurinol 300 mg PO DAILY folic acid 1 mg PO DAILY naproxen 250 mg PO BID PRN omeprazole 20 mg PO DAILY oxycodone 5 mg PO Q6H PRN oxycodone 10 mg PO Q6H PRN Tobacco use date assessed: 08/23/23 Fall risk assessment: No Falls in past year Last assessed Fall Risk: 08/23/23 Dental Screening Dental Screen Date: 08/23/23 Did you have a dental visit in the last 12 months?: Yes Did you have a dental problem in the last 6 months where you did not have access to dental care?: No Was dental information given to patient?: Patient has dentist HPI 3mth f/u HPI Details GOUT ON RX; DOING WELL PFSH Medical History Screening for hypercholesterolemia Hypertension Gout Hx of essential hypertension Surgical History No pertinent past surgical history Family History Mother Ovarian cancer Father Heart attack Social History Housing: House Alcohol intake: current Alcohol intake frequency: a few times a week Alcohol type: beer and hard liquor Patient Tobacco Use Status: Current everyday Tobacco user Tobacco use type: Cigarette Cigarettes Per Day: 8 Years Smoked: 55 e-Cigarette/Vaping Use: Never Used Second Hand Smoke Exposure: Yes service: No Current occupational status: retired Cognitive needs: Yes (cane/walker) Hearing needs: No Vision needs: Yes (glasses) Questionnaire PHQ-9 Over the last 2 weeks, how often have you been bothered by any of the following problems? 1. Little interest or pleasure in doing things: more than half the days 2. Feeling down, depressed, or hopeless: more than half the days 3. Trouble falling or staying asleep, or sleeping too much: more than half the days 4. Feeling tired or having little energy: nearly every day 5. Poor appetite or overeating: nearly every day 6. Feeling bad about yourself - or that you are a failure or have let yourself or your family down: more than half the days 7. Trouble concentrating on things, such as reading the newspaper or watching television: not at all 8. Moving or speaking so slowly that other people could have noticed. Or the opposite - being so fidgety or restless that you have been moving around a lot more than usual: not at all 9. Thoughts that you would be better off or of hurting yourself in some way: not at all Total score: 14 Depression Screening Interpretation: Negative Depression Screening Done: Yes 65873 - PHQ-9 Billing: Yes Source: Developed by Drs. King García, Amrita Macdonald, David Larios and colleagues, with an educational marcella from [employer]. Thrive Questionnaire Date Thrive assessed: 08/23/23 I am a: Patient What is your living situation today?: I have a steady place to live Within the past 12 months, did the food you bought not last and you didn't have the money to get more?: Never true Within the past 12 months, did you worry whether your food would run out before you got money to buy more?: Never true Do you have trouble paying for medicines?: No Do you have trouble getting transportation to medical appointments?: No Do you have trouble paying your heating and electricity bill?: No Do you have trouble taking care of your child, family member or friend?: No Do you have trouble with day-to-day activities such as bathing, preparing meals, shopping, managing finances, etc.?: No Are you currently unemployed and looking for a job?: No Are you interested in more education?: No Please select the resources that you would like help with: None AUDIT C Alcohol Use Questionnaire (AUDIT-C) 1. How often do you have a drink containing alcohol?: 2-3 times a week 2. How many drinks containing alcohol do you have on a typical day when you are drinking?: 1 or 2 Total Score: 3 Score Reviewed/Action Taken: Yes SRAVAN-7 AMB Questionnaire SRAAVN-7 Date SRAVAN - 7 assessed: 08/23/23 Feeling nervous, anxious, or on edge: 0 = Not at all Not being able to stop or control worryin = Not at all Worrying too much about different things: 0 = Not at all Trouble relaxin = Not at all Being so restless that it is hard to sit still: 0 = Not at all Becoming easily annoyed or irritable: 0 = Not at all Feeling afraid as if something awful might happen: 0 = Not at all Total SRAVAN-7 score (0-4 normal; 5-9 mild; 10-14 moderate; 15-21 severe): 0 Source: Developed by Drs. King García, Amrita Macdonald, David Larios and colleagues, with an educational marcella from [employer]. Review of Systems Const Denies chills, Denies headache(s) and Denies weight loss ENT Denies headache(s) Card Denies chest pain, Denies syncope, Denies irregular heart rhythm and Denies dyspnea Resp Denies chest congestion, Denies cough and Denies dyspnea GI Denies abdominal pain, Denies change in stool character, Denies nausea and Denies vomiting Musc Denies deformity and Denies joint swelling Neuro Denies syncope and Denies headache(s) Physical exam (Primary Care) Vital Signs: Last Vital Signs Pulse 62 08/23/23 10:38 BP 138/84 08/23/23 10:38 Pulse Ox 82 L 08/23/23 10:38 Oxygen Delivery Method Room Air 08/23/23 10:38 BMI result Body Mass Index 16.0 Tobacco/Smoking Status: Tobacco use Status Tobacco use date assessed 08/23/23 08/23/23 10:40 Patient Tobacco Use Status Current everyday Tobacco 08/23/23 10:40 Tobacco use type Cigarette 08/23/23 10:40 e-Cigarette/Vaping Use Never Used 08/23/23 10:40 PHQ-9: PHQ-9 Score PHQ-9: Total score 14 08/23/23 10:52 Depression Screening Interpretation: Negative Thrive Assessment: Date of Thrive Assessment Date Thrive assessed 08/23/23 08/23/23 10:40 Const General: cooperative, comfortable, no acute distress and alert Neck Neck: Yes no lymphadenopathy Thyroid: Thyroid normal Resp Effort & Inspection: normal respiratory effort Auscultation: clear to auscultation bilaterally Percussion: percussion normal Cardio Jugular venous distension: no JVD Palpation: normal PMI Rate: regular rate Rhythm: regular rhythm Heart sounds: S1 normal heart sound present and S2 normal heart sound present GI Inspection: Yes normal to inspection Palpation (GI): No hepatosplenomegaly present Skin General skin exam: no rashes or lesions noted Extrem General: Yes no clubbing, cyanosis or edema Assessment and Plan Assessment & Plan (1) Gout: Code(s): M10.9 - Gout, unspecified Qualifiers: Gout site: unspecified site Gout etiology: idiopathic Chronicity: chronic Presence of tophus: without tophus Qualified Code(s): M1A.00X0 - Idiopathic chronic gout, unspecified site, without tophus (tophi) Plan: STABLE; SAME RX Coding Level of Care Code Est Pt Level 3 (46697) Diagnoses Idiopathic chronic gout without tophus, unspecified site M1A.00X0 Gout site: unspecified site Gout etiology: idiopathic Chronicity: chronic Presence of tophus: without tophus
== END 2023-08-23 10:59 | disposition home or self-care (01) ==
PROVIDERS: PCP Internal Medicine; Visit Provider Internal Medicine
DX: M1A.00X0 Idiopathic chronic gout, unspecified site, without tophus (tophi) (principal)
CPT/HCPCS: 99213

== ENCOUNTER 2023-10-20 09:19 | Outpatient (REF) | payer MEDICARE, SELFPAY ==
[2023-10-20 11:49] LABS: MANUAL DIFF FLAG NO
[2023-10-20 11:57] LABS: Basophils Percent Auto 0.4 % (0-2); Eosinophils Absolute Auto 0.3 X10*3/uL (0.0-0.4); Eosinophils Percent Auto 3.8 % (0-4); Hematocrit 34.7 % (42.0-52.0); Hemoglobin 12.3 g/dl (14.0-18.0); Imm Gran Abs Auto 0.03 X10*3/uL (0.00-0.03); Imm Gran Pct Auto 0.3 % (0.0-0.4); Lymphocytes Absolute Auto 2.4 X10*3/uL (1.2-4.9); Lymphocytes Percent Auto 26.8 % (20-40); Mean Corpuscular HGB Conc 35.4 g/dl (31.0-36.0); Mean Corpuscular Hemoglobin 33.5 pg (27.0-33.0); Mean Corpuscular Volume 94.6 fL (80.0-98.0); Monocytes Absolute Auto 0.8 X10*3/uL (0.1-1.2); Neutrophils Absolute Auto 5.4 x10*3/uL (2.0-8.3); Neutrophils Percent Auto 59.7 % (45-73); Platelet Count 207 X10*3/uL (160-400); Red Blood Count 3.67 X10*6/uL (4.60-5.80); Red Cell Distribution Width 15.9 % (11.0-16.0)
[2023-10-20 12:55] LABS: Alanine Aminotransferase 24 U/L (0-40); Albumin Level 3.7 g/dL (3.5-5.0); Alkaline Phosphatase 125 U/L (39-117); Anion Gap 12 (12-20); Aspartate Amino Transferase 45 U/L (5-37); Blood Urea Nitrogen 18 mg/dL (9-16); Carbon Dioxide 29 mmol/L (22-29); Chloride 107 mmol/L (96-108); Cholesterol 132 mg/dL (<200); Estimated Glomerular Filt Rate > 60; Glucose Fasting 91 mg/dL (60-99); HDL Cholesterol 82 mg/dL (>40); LDL Cholesterol Calculated 39 mg/dL (<100); Potassium 4.1 mmol/L (3.3-5.1); Sodium 144 mmol/L (135-145); Total Protein 6.7 g/dL (6.5-8.0); Triglycerides 55 mg/dL (<150)
== END 2023-10-20 09:20 | disposition home or self-care (01) ==
LOC: HO.10HDL 09:19
PROVIDERS: Visit Provider Internal Medicine
DX: D64.9 Anemia, unspecified (principal); E78.5 Hyperlipidemia, unspecified; N28.9 Disorder of kidney and ureter, unspecified
CPT/HCPCS: 36415; 80053; 80061; 85025

== ENCOUNTER 2023-11-13 09:54 | Outpatient (AMB) | payer MEDICARE, SELFPAY ==
[2023-11-13 09:55] VITALS: BP 122/72; PULSE 67; O2SAT 89; BMI 16.1
--- NOTE | 2023-11-13 09:55 | A.OFFPC_ITS ---
Vital Signs 11/13/23 09:55 Height 5 ft 3 in Weight 91 lb BMI 16.1 BP 122/72 Blood Pressure Location Lt brachial Position Sitting Pulse 67 Pulse Source Pulse Oximeter Pulse Oximetry (%) 89 L Oxygen Delivery Method Room Air Intake Visit Reasons: Annual exam Splicer Operator Required: No Edge Banding Off Bearer: Not Required per policy Accompanied by: Self / Same As Patient Allergies No Known Allergies [No Known Allergies*] Allergy (Verified 11/13/23 09:55) Medication List - Last Reconciled 11/14/23 by Noah Alvarenga MD allopurinol 300 mg PO DAILY folic acid 1 mg PO DAILY naproxen 250 mg PO BID PRN omeprazole 20 mg PO DAILY oxycodone 5 mg PO Q6H PRN oxycodone 10 mg PO Q6H PRN Tobacco use date assessed: 08/23/23 Fall risk assessment: No Falls in past year Last assessed Fall Risk: 11/13/23 Dental Screening Dental Screen Date: 08/23/23 HPI Annual exam HPI Details gout gerd and alcoholism; has decreased alcohol intake but still drinks PFSH Medical History Screening for hypercholesterolemia Hypertension Gout Hx of essential hypertension Surgical History No pertinent past surgical history Family History Mother Ovarian cancer Father Heart attack Social History Housing: House Alcohol intake: current Alcohol intake frequency: a few times a week Alcohol type: beer and hard liquor Patient Tobacco Use Status: Current everyday Tobacco user Tobacco use type: Cigarette Cigarettes Per Day: 8 Years Smoked: 55 e-Cigarette/Vaping Use: Never Used Second Hand Smoke Exposure: Yes service: No Current occupational status: retired Cognitive needs: Yes (cane/walker) Hearing needs: No Vision needs: Yes (glasses) Questionnaire Thrive Questionnaire Date Thrive assessed: 08/23/23 SRAVAN-7 AMB Questionnaire SRAVAN-7 Date SRAVAN - 7 assessed: 08/23/23 Source: Developed by Drs. King García, Amrita Macdonald, David Larios and colleagues, with an educational marcella from [employer]. Review of Systems Const Denies chills, Denies fatigue, Denies headache(s) and Denies weight loss Eyes Denies change in vision, Denies diplopia and Denies eye pain ENT Denies vertigo, Denies dizziness, Denies headache(s) and Denies nasal discharge Card Denies chest pain, Denies rapid heart rate and Denies dyspnea on exertion Resp Denies chest congestion, Denies cough, Denies pain with cough and Denies dyspnea on exertion GI Denies abdominal pain, Denies hematochezia and Denies change in bowel habits Musc Denies myalgias, Denies arthralgias and Denies joint swelling Skin/Breast Denies lesions and Denies unusual bruising Neuro Denies vertigo, Denies dizziness, Denies headache(s) and Denies focal weakness Endo Denies fatigue Physical exam (Primary Care) Vital Signs: Last Vital Signs Pulse 67 11/13/23 09:55 BP 122/72 11/13/23 09:55 Pulse Ox 89 L 11/13/23 09:55 Oxygen Delivery Method Room Air 11/13/23 09:55 BMI result Body Mass Index 16.1 Tobacco/Smoking Status: Tobacco use Status Tobacco use date assessed 08/23/23 11/13/23 10:01 Patient Tobacco Use Status Current everyday Tobacco 11/13/23 10:01 Tobacco use type Cigarette 11/13/23 10:01 e-Cigarette/Vaping Use Never Used 11/13/23 10:01 Thrive Assessment: Date of Thrive Assessment Date Thrive assessed 08/23/23 11/13/23 10:01 Const General: cooperative, healthy appearing and no acute distress Orientation/consciousness: oriented to person, oriented to place and oriented to time [facility] Head: Yes normal to inspection, Yes normocephalic and Yes atraumatic Mouth: Normal oral and palatal mucosa present and tongue normal Throat: Yes posterior oropharynx normal and Yes uvula midline Eyes General: appearance normal, both eyes and all related structures Neck Neck: Yes normal visual inspection, Yes full ROM and Yes no lymphadenopathy Thyroid: Thyroid normal Carotids: normal carotid upstroke Chest Chest palpation & inspection: normal inspection of the chest Resp Effort & Inspection: normal respiratory effort and able to speak in complete sentences Auscultation: clear to auscultation bilaterally Cardio Jugular venous distension: no JVD Palpation: normal PMI Rate: regular rate Rhythm: regular rhythm Heart sounds: S1 normal heart sound present and S2 normal heart sound present GI Inspection: Yes normal to inspection Palpation (GI): Soft to palpation and No hepatosplenomegaly present Auscultation: normal bowel sounds General: Yes no CVA tenderness Back/Spine/Pelvis Back: no CVA tenderness Skin General skin exam: no rashes or lesions noted Neuro General: oriented to person, oriented to place and oriented to time Extrem General: Yes normal to inspection and Yes full ROM Assessment and Plan Assessment & Plan (1) Physical exam: Code(s): Z00.00 - Encounter for general adult medical examination without abnormal findings Plan: stable; do labs (2) Chronic GERD: Code(s): K21.9 - Gastro-esophageal reflux disease without esophagitis Plan: stable; same rx (3) Gout: Code(s): M10.9 - Gout, unspecified Qualifiers: Gout site: unspecified site Gout etiology: idiopathic Chronicity: chronic Presence of tophus: without tophus Qualified Code(s): M1A.00X0 - Idiopathic chronic gout, unspecified site, without tophus (tophi) Plan: stable and same rx (4) Alcohol use disorder, mild, abuse: Code(s): F10.10 - Alcohol abuse, uncomplicated Plan: advised to stop Medications: Refilled allopurinol 300 mg PO DAILY 90 tabs 8RF Coding Level of Care Code Est Pt Prev Care >65y(75297) Diagnoses Physical exam Z00.00 Chronic GERD K21.9 Idiopathic chronic gout without tophus, unspecified site M1A.00X0 Gout site: unspecified site Gout etiology: idiopathic Chronicity: chronic Presence of tophus: without tophus Alcohol use disorder, mild, abuse F10.10
== END 2023-11-13 11:43 | disposition home or self-care (01) ==
PROVIDERS: Visit Provider Internal Medicine
DX: Z00.00 Encounter for general adult medical examination without abnormal findings (principal); K21.9 Gastro-esophageal reflux disease without esophagitis; M1A.00X0 Idiopathic chronic gout, unspecified site, without tophus (tophi); F10.10 Alcohol abuse, uncomplicated
CPT/HCPCS: 99397

== ENCOUNTER 2024-02-29 10:21 | Outpatient (AMB) | payer MEDICARE, SELFPAY ==
[2024-02-29 10:31] VITALS: BP 160/90; PULSE 102; O2SAT 98; BMI 15.7
--- NOTE | 2024-02-29 10:31 | A.OFFPC_ITS ---
Vital Signs 02/29/24 10:31 Height 5 ft 3 in Weight 88 lb 13.541 oz BMI 15.7 BP 160/90 H Blood Pressure Location Lt brachial Position Sitting Pulse 102 H Pulse Source Pulse Oximeter Pulse Oximetry (%) 98 Oxygen Delivery Method Room Air Intake Visit Reasons: 6mth f/u Intake Note: The patient is here for a 6-month follow-up. He is requesting a supplement to help with eating, as he has lost his appetite and feels that he continues to lose weight. Information Systems Security Specialist Required: No Accompanied by: Nephew or Niece Allergies No Known Allergies [No Known Allergies*] Allergy (Verified 02/29/24 10:34) Tobacco use date assessed: 08/23/23 Fall risk assessment: No Falls in past year Last assessed Fall Risk: 02/29/24 Dental Screening Dental Screen Date: 08/23/23 HPI 6mth f/u HPI Details gout on rx; doing well with no recent flares PFSH Medical History Screening for hypercholesterolemia Hypertension Gout Hx of essential hypertension Surgical History No pertinent past surgical history Family History Mother Ovarian cancer Father Heart attack Social History Housing: House Alcohol intake: current Alcohol intake frequency: a few times a week Alcohol type: beer and hard liquor Patient Tobacco Use Status: Current everyday Tobacco user Tobacco use type: Cigarette Cigarettes Per Day: 8 Years Smoked: 55 e-Cigarette/Vaping Use: Never Used Second Hand Smoke Exposure: Yes service: No Current occupational status: retired Cognitive needs: Yes (cane/walker) Hearing needs: No Vision needs: Yes (glasses) Questionnaire Thrive Questionnaire Date Thrive assessed: 08/23/23 SRAVAN-7 AMB Questionnaire SRAVAN-7 Date SRAVAN - 7 assessed: 08/23/23 Source: Developed by Drs. King García, Amrita Macdonald, David Larios and colleagues, with an educational marcella from [employer]. Review of Systems Const Denies chills, Denies headache(s) and Denies weight loss ENT Denies headache(s) Card Denies chest pain, Denies syncope, Denies irregular heart rhythm and Denies dyspnea Resp Denies chest congestion, Denies cough and Denies dyspnea GI Denies abdominal pain, Denies change in stool character, Denies nausea and Denies vomiting Musc Denies deformity and Denies joint swelling Neuro Denies syncope and Denies headache(s) Physical exam (Primary Care) Vital Signs: Last Vital Signs Pulse 102 H 02/29/24 10:31 BP 160/90 H 02/29/24 10:31 Pulse Ox 98 02/29/24 10:31 Oxygen Delivery Method Room Air 02/29/24 10:31 BMI result Body Mass Index 15.7 Tobacco/Smoking Status: Tobacco use Status Tobacco use date assessed 08/23/23 02/29/24 10:38 Patient Tobacco Use Status Current everyday Tobacco 02/29/24 10:38 Tobacco use type Cigarette 02/29/24 10:38 e-Cigarette/Vaping Use Never Used 02/29/24 10:38 Thrive Assessment: Date of Thrive Assessment Date Thrive assessed 08/23/23 02/29/24 10:38 Const General: cooperative, comfortable, no acute distress and alert Neck Neck: Yes no lymphadenopathy Thyroid: Thyroid normal Resp Effort & Inspection: normal respiratory effort Auscultation: clear to auscultation bilaterally Percussion: percussion normal Cardio Jugular venous distension: no JVD Palpation: normal PMI Rate: regular rate Rhythm: regular rhythm Heart sounds: S1 normal heart sound present and S2 normal heart sound present GI Inspection: Yes normal to inspection Palpation (GI): No hepatosplenomegaly present Skin General skin exam: no rashes or lesions noted Extrem General: Yes no clubbing, cyanosis or edema Assessment and Plan Assessment & Plan (1) Gout: Code(s): M10.9 - Gout, unspecified Qualifiers: Gout site: unspecified site Gout etiology: idiopathic Chronicity: chronic Presence of tophus: without tophus Qualified Code(s): M1A.00X0 - Idiopathic chronic gout, unspecified site, without tophus (tophi) Plan: stable; same rx Coding Level of Care Code Est Pt Level 3 (36325) Diagnoses Idiopathic chronic gout without tophus, unspecified site M1A.00X0 Gout site: unspecified site Gout etiology: idiopathic Chronicity: chronic Presence of tophus: without tophus
== END 2024-02-29 10:43 | disposition home or self-care (01) ==
PROVIDERS: PCP Internal Medicine; Visit Provider Internal Medicine
DX: M1A.00X0 Idiopathic chronic gout, unspecified site, without tophus (tophi) (principal)
CPT/HCPCS: 99213

== ENCOUNTER → 2024-09-18 11:04 | Outpatient (BNVA) | payer MEDICARE, SELFPAY | PROVIDERS: PCP Internal Medicine; Visit Provider Internal Medicine | DX: S42.351D Displaced comminuted fracture of shaft of humerus, right arm, subsequent encounter for fracture with routine healing (principal) | CPT/HCPCS: 96127; 99212 ==

== ENCOUNTER 2024-12-19 16:59 | Inpatient (IN) | payer MEDICARE, SELFPAY ==
--- NOTE | ~2024-12-19 | CT_ITS ---
CLINICAL HISTORY: fall, ?? right hip fx on xrays. CT of the abdomen and pelvis without intravenous contrast. No comparison. Findings: Artifact limits the study. No definite solid organ injury is identified. No abdominal aortic aneurysm. No definite acute abnormality of the bowel. The bladder is mildly distended. Emphysema. There are acute fractures of the right superior and inferior pubic rami. There is an acute subcapital fracture of the right femoral neck. Acute fracture of the right sacrum. Old L1 and L3 compression fractures. There is mild ill-defined hemorrhage in the pelvis. Impression: Multiple acute pelvic fractures as described. No definite solid organ injury. This document has been electronically signed by: Santana Mcleod MD on 12/19/2024 20:35:01
--- NOTE | ~2024-12-19 | XR_ITS ---
CLINICAL HISTORY: SOB 1 view chest x-ray Comparison: CT/SR - CT CHEST WO IV CON - 12/19/24 18:46 EDT Findings: There are new ill-defined opacities in bilateral mid lungs, and left lower lung. No pleural effusion. Normal size heart. Osteopenia. IMPRESSION: New ill-defined bilateral lung opacities. Consider infectious etiology. This document has been electronically signed by: Fritz Cruz MD on 12/23/2024 01:22:17
--- NOTE | ~2024-12-19 | XR_ITS ---
CLINICAL HISTORY: Fall Two views of the right forearm. Findings: Patient positioning limits the study. There is an acute distracted fracture of the olecranon. No other definite acute fractures are seen. The wrist is suboptimally evaluated. Impression: Acute olecranon fracture. This document has been electronically signed by: Santana Mcleod MD on 12/19/2024 19:22:12
--- NOTE | ~2024-12-19 | CT_ITS ---
CLINICAL HISTORY: Fall CT of the head without contrast. No comparison. Findings: There is atrophy with white matter changes. No acute hemorrhage or infarct is seen. No masses are identified and there is no hydrocephalus. There is no mass-effect. Impression: No acute intracranial abnormality is identified. There is mild sinus disease. This document has been electronically signed by: Santana Mcleod MD on 12/19/2024 20:16:37
--- NOTE | ~2024-12-19 | CT_ITS ---
CLINICAL HISTORY: Fall CT cervical spine without contrast. No comparison. Findings: There is mild fluid in the right mastoid air cells. There is a right clavicular fracture that is likely acute. Age-indeterminate T2 mild compression fracture most likely old. No acute fractures in the cervical spine. There are advanced degenerative changes with multilevel spinal and foraminal stenosis. Mild malalignment is likely degenerative in nature. Impression: No acute fractures are seen in the cervical spine. Right clavicular fracture likely acute. Mild T2 compression fracture most likely old. This document has been electronically signed by: Santana Mcleod MD on 12/19/2024 20:08:47
--- NOTE | ~2024-12-19 | CT_ITS ---
CLINICAL HISTORY: SOB CT angiography chest with contrast. 3D Postprocessing. Comparison: CT/SR - CT CHEST WO IV CON - 12/19/24 18:46 EDT Findings: Breathing artifact throughout the exam. Suboptimal visualization of the distal pulmonary arteries. The heart size is normal. RV/LV ratio is normal. The thoracic aorta is normal caliber. No acute pulmonary embolus. The visualized thyroid and mediastinum are unremarkable. Small bilateral pleural effusions. Dense consolidation in the left lower lobe. Ground-glass reticular opacities dependently in both upper lobes, lingula, and middle lobe. Mild dependent atelectasis in the right lower lobe. Emphysema. The visualized upper abdomen is unremarkable. Subacute appearing moderate to severe superior endplate compression fracture L3 vertebral body. Incomplete demonstration of old appearing right proximal humeral fracture with nonunion. Old near vertebral plana T8 and L1. IMPRESSION: 1. Multifocal lung opacities and bilateral effusions. Infectious etiology favored. 2. No acute pulmonary embolus within the limitations of the exam. 3. Subacute appearing compression fracture L3. This document has been electronically signed by: Fritz rCuz MD on 12/23/2024 03:35:24
--- NOTE | ~2024-12-19 | XR_ITS ---
CLINICAL HISTORY: Fall Two views right elbow. Findings: There is an acute distracted fracture of the olecranon. Patient positioning limits the study. No other definite acute fracture. No dislocation. Impression: Distracted fracture of the olecranon. This document has been electronically signed by: Santana Mcleod MD on 12/19/2024 19:18:15
--- NOTE | ~2024-12-19 | CT_ITS ---
CLINICAL HISTORY: Fall CT of the chest without contrast. No comparison. Findings: There is motion artifact. There is no pleural or pericardial effusion. Emphysema. There is no pneumothorax. There is mild pulmonary scarring bilaterally. Displaced fracture right clavicle. Old fracture proximal right humerus with prominent posttraumatic deformity. Multiple compression fractures are presumably old. Impression: Fracture right clavicle. Other findings as above. This document has been electronically signed by: Santana Mcleod MD on 12/19/2024 20:14:22
--- NOTE | ~2024-12-19 | XR_ITS ---
CLINICAL HISTORY: Fall Two views of the right humerus. Findings: There is an acute distracted fracture of the olecranon. There is a prominently displaced fracture of the surgical neck of the proximal humerus with heterotopic ossification, this is likely old. There is a displaced age-indeterminate clavicular shaft fracture Impression: Acute fracture of the olecranon. Prominently displaced fracture of the proximal humerus likely old. Displaced age-indeterminate clavicular shaft fracture This document has been electronically signed by: Santana Mcleod MD on 12/19/2024 19:17:41
--- NOTE | ~2024-12-19 | XR_ITS ---
CLINICAL HISTORY: Fall Pelvis and bilateral hips. Findings: Patient positioning mildly limits the study. There are age-indeterminate fractures of the right superior and inferior pubic rami. There is a possible subcapital fracture of the right femoral neck. There is heterotopic ossification adjacent to the right hip. Mild bilateral hip DJD. Impression: Age-indeterminate fractures right superior and inferior pubic rami. Possible subcapital fracture right femoral neck. This document has been electronically signed by: Santana Mcleod MD on 12/19/2024 19:15:18
--- NOTE | 2024-12-19 17:25 | ECG_ITS ---
Test Reason : fall Blood Pressure : */* mmHG Vent. Rate : 104 BPM Atrial Rate : 104 BPM P-R Int : 90 ms QRS Dur : 80 ms QT Int : 366 ms P-R-T Axes : 44 83 -18 degrees QTcB Int : 481 ms Artifact in tracing Sinus tachycardia with short KS cannot exclude old Septal infarct , age undetermined Nonspecific ST and T wave abnormality Abnormal ECG When compared with ECG of 31-May-2019 21:50, Septal infarct is now Present , could be from lead position change Referred By: Troy Lizarraga Electronically Signed By: MARKELL FRASER
[2024-12-19 17:45] VITALS: BP 161/91; BP 172/90; PULSE 110; RESP 22; TEMP 36.6; O2SAT 90; O2SAT 95; BMI 14.7
--- NOTE | 2024-12-19 17:57 | ED.FALL ---
HPI - Fall General Chief Complaint: Fall Stated Complaint: Fall. on floor 20 hrs, R side body bruising Time Seen by Provider: 12/19/24 17:24 Source: patient and EMS Mode of arrival: EMS Limitations: no limitations History of Present Illness ED Provider: DR. Lizarraga HPI Narrative: 79-year-old male history of HTN, and gout came in from home by EMS after reported fall last night patient remained on the ground for about 20 hours because he could not get himself off the floor. Patient is complaining of right forearm pain, hematoma on right upper chest and right side of the head, and right hip pain. Related Data Home Medications ?Medication ?Instructions ?Recorded ?Confirmed naproxen 250 mg tablet 250 mg PO BID PRN 06/09/21 09/18/24 Previous Rx's ?Medication ?Instructions ?Recorded folic acid 1 mg tablet 1 mg PO DAILY #30 tabs 06/25/21 naproxen 500 mg tablet (Naprosyn) 500 mg PO BID PRN pain #60 tabs 09/18/24 allopurinol 300 mg tablet 300 mg PO DAILY #90 tabs 11/22/24 omeprazole 20 mg capsule,delayed 20 mg PO DAILY #90 caps 12/11/24 release Allergies Allergy/AdvReac Type Severity Reaction Status Date / Time No Known Allergies Allergy Verified 12/19/24 17:52 [No Known Allergies*] Review of Systems Review of Systems: All other systems are reviewed and are negative Constitutional: Reports as per HPI and Reports no additional constitutional complaints Eyes: Reports as per HPI and Reports no additional eye complaints Reports system reviewed and no additional complaints, except as documented Cardiovascular: Reports as per HPI and Reports no additional cardiovascular complaints Respiratory: Reports as per HPI and Reports no additional respiratory complaints Gastrointestinal: Reports as per HPI and Reports no additional gastrointestinal complaints Genitourinary: Reports no additional female genitourinary complaints Musculoskeletal: Reports no additional musculoskeletal complaints Skin/Breast: Reports system reviewed and no additional complaints, except as docu Psychiatric: Reports no additional psychiatric complaints Endocrine: Reports no additional endocrine complaints Hematologic/Lymphatic: Reports no additional hematologic/lymphatic complaints Allergic/Immunologic: Reports no additional allergic/immunologic complaints Reports system reviewed and no additional complaints, except as documented and Reports Abnormal speech present [facility] Past Medical History Medical History Screening for hypercholesterolemia Hypertension Gout Hx of essential hypertension Surgical History No pertinent past surgical history Family History Family History Mother Ovarian cancer Father Heart attack Social History Social History Housing: House Alcohol intake: current Alcohol intake frequency: a few times a month Alcohol type: beer and hard liquor Patient Tobacco Use Status: Current everyday Tobacco user Tobacco use type: Cigarette Cigarettes Per Day: 8 Years Smoked: 55 e-Cigarette/Vaping Use: Never Used Second Hand Smoke Exposure: Yes Use of substances other than those prescribed or required for medical reasons: No Advance Directives: No Advance Directives Information Provided: Yes Do you have a plan to hurt others: No Plan service: No Current occupational status: retired Cognitive needs: Yes (cane/walker) Hearing needs: No Vision needs: Yes (glasses) Physical Exam Vital Signs: Vital Signs: Last Vital Signs Temp 99.1 F 12/19/24 20:20 Pulse 100 12/19/24 20:20 Resp 18 12/19/24 20:20 BP 150/76 H 12/19/24 20:20 Pulse Ox 95 12/19/24 20:20 O2 Del Method Nasal Cannula 12/19/24 20:20 O2 Flow Rate 2 12/19/24 20:20 BMI result Body Mass Index 14.7 Vital signs have been reviewed and appear to be correct. Blood pressure elevated. Heart rate normal. Respiratory rate normal. Temperature normal. Oxygen saturation normal. Appearance: Alert. Oriented X3. No acute distress. Head: Normal external exam. Normocephalic. Atraumatic. No Cuevas signs noted. No raccoon eyes noted, right forehead hematoma. Eyes: PERRLA. EOMI. Conjunctiva and sclera normal. Eyelids normal. ENT: TM's Normal. Pharynx normal. Uvula midline. Moist mucous membranes. No trismus noted. No drooling noted. No muffled voice noted. Neck: Normal inspection. Neck supple. FROM. No adenopathy. Thyroid Normal. No meningeal signs. No neck mass noted. CVS: Normal heart rate and rhythm. Heart sound normal. No murmurs noted. Pulses normal throughout. Respiratory: No respiratory distress. Painless inspiration. Breath sounds normal. No wheezes/rales/rhonchi noted. Right upper chest hematoma. No accessory muscle usage noted or decreased air movement noted. Abdomen: Soft and nontender. Bowel sounds normal in all 4 quadrants. No distention noted. No organomegaly noted. No visible injury noted. Back: No CVA tenderness. Full range of motion noted. Skin: Skin warm and dry. Normal skin color. Normal skin turgor. No rashes/lesions/lacerations noted. Extremities: Right hip tenderness, no right lower extremity deformity. Neuro: Oriented X 3. Cranial nerve exam: II-XII are grossly intact No motor deficit. No sensory deficit. Reflexes normal. Course Reevaluation(s) Reevaluation #1: 79-year-old male found on floor for 20 hours with mild rhabdomyolysis, elevated troponin, no EKG changes, no chest pain. Case discussed with Dr. Smith no specific treatment just treat rhabdomyolysis. Patient with subcapital right femoral fracture detected on CT was not clear on the plain x-ray. Case discussed with who advised to admit to Medicine do not keep NPO after midnight possibly no surgery in the morning patient need more medical stabilization before surgery. Time: 21:08 Medications Administered Discontinued Medications Generic Name Dose Route Start Last Admin Trade Name Freq PRN Reason Stop Dose Admin Sodium Chloride 1,000 mls @ 999 mls/hr 12/19/24 17:25 12/19/24 18:04 Ns IV 12/19/24 18:25 999 mls/hr .Q1H1M ONE Administration Morphine Sulfate 1 mg 12/19/24 17:55 12/19/24 18:04 Morphine Sulfate 2 Mg/Ml Cartridge IVPUSH 12/19/24 17:56 1 mg ONCE ONE Administration Protocol Medical Decision Making Differential Diagnosis Differential Diagnoses: The differential diagnosis associated with the presentation includes (Intracranial bleed, cervical spine injury, chest injury, extremities injury, right hip fracture, abdominal injury.) Admission/Observation Consideration of admission/observation: Escalation of care including admission/observation considered Lab Data MDM Lab Attestation statement: I reviewed the patient's lab results. 12/19/24 18:25 12/19/24 18:25 Labs: Lab Results 12/19/24 12/19/24 12/19/24 Range/Units 18:25 18:26 20:16 WBC 12.5 H (4.8-10.8) X10*3/uL RBC 2.64 L D (4.60-5.80) X10*6/uL Hgb 9.2 L D (14.0-18.0) g/dl Hct 25.3 L D (42.0-52.0) % MCV 95.8 (80.0-98.0) fL MCH 34.8 H (27.0-33.0) pg MCHC 36.4 H (31.0-36.0) g/dl RDW 15.5 (11.0-16.0) % Plt Count 114 L D (160-400) X10*3/uL MPV 11.4 (9.4-12.4) fL Immature Gran % (Auto) 0.9 H (0.0-0.4) % Neut % (Auto) 83.8 H (45-73) % Lymph % (Auto) 7.5 L (20-40) % [place] % (Auto) 7.7 (2-11) % Eos % (Auto) 0.0 (0-4) % Baso % (Auto) 0.1 (0-2) % Lymph # (Auto) 0.9 L (1.2-4.9) X10*3/uL [place] # (Auto) 1.0 (0.1-1.2) X10*3/uL Eos # (Auto) 0.0 (0.0-0.4) X10*3/uL Baso # (Auto) 0.0 (0.0-0.2) X10*3/uL Abs Immat Gran (auto) 0.11 H (0.00-0.03) X10*3/uL Absolute Neuts (auto) 10.5 H (2.0-8.3) x10*3/uL Absolute Nucleated RBC 0.030 H (0.0-0.012) X10*3/uL Nucleated RBC % (auto) 0.2 (0.0-0.2) /100WBC PT 10.6 L (10.9-12.4) SEC INR 0.9 (0.9-1.1) Sodium 144 (135-145) mmol/L Potassium 4.8 (3.3-5.1) mmol/L Chloride 103 (96-108) mmol/L Carbon Dioxide 25 (22-29) mmol/L Anion Gap 21 H (12-20) BUN 44 H (9-16) mg/dL Creatinine 1.88 H (0.5-1.4) mg/dL Estim Creat Clear Calc 16.6 Estimated GFR 35 Random Glucose 138 H (60-115) mg/dL Calcium 9.0 (8.4-10.2) mg/dL Total Bilirubin 1.2 H (0.0-1.0) mg/dL Direct Bilirubin 0.6 H (0.0-0.5) mg/dL AST 159 H (5-37) U/L ALT 60 H (0-40) U/L Alkaline Phosphatase 94 (39-117) U/L Total Creatine Kinase 3643 H (38-174) U/L Troponin I High Sens 157.6 H* 196.3 H* (<3.5-35.0) ng/L B-Natriuretic Peptide 844 H (<100) pg/mL Total Protein 6.5 (6.5-8.0) g/dL Albumin 3.6 (3.5-5.0) g/dL Lipase 5 L (8-78) U/L Influenza Type A (PCR) NEGATIVE (Negative) Influenza Type B (PCR) NEGATIVE (Negative) RSV RNA Qual (PCR) NEGATIVE (Negative) SARS-CoV-2 RNA (RT-PCR) NEGATIVE (Negative) Independent Interpretation I performed an independent interpretation of an: Plain X-Ray (Right upper extremity: Right clavicular fracture, right all cranial fracture.) and CT Scan (Head/C-spine/chest/abdomen and pelvis: No acute intracranial abnormality, no acute cervical spine fracture, right clavicle fracture.) Radiology Impression Discussion of test interpretation with radiology: I have reviewed the radiologist's reading. Discharge Plan Discharge Clinical Impression: Rhabdomyolysis, Closed fracture of right hip, Elevated troponin Patient Disposition: Admitted As Inpatient Prescriptions: No Action allopurinol 300 mg tablet 300 mg PO DAILY Qty: 90 0RF omeprazole 20 mg capsule,delayed release(DR/EC) 20 mg PO DAILY Qty: 90 2RF folic acid 1 mg tablet 1 mg PO DAILY Qty: 30 0RF naproxen 250 mg tablet 250 mg PO BID PRN naproxen [Naprosyn] 500 mg tablet 500 mg PO BID PRN (Reason: pain) Qty: 60 1RF Print Language: Uzbek
[2024-12-19] MEDS: 0.9 % Sodium Chloride 1,000 ML 999 ML IV (18:04)
[2024-12-19] MEDS: Morphine Sulfate 2 MG/ML CARTRIDGE 1 MG IVPUSH (18:04)
[2024-12-19 18:13] VITALS: BP 161/91; PULSE 110; RESP 22; TEMP 36.6; O2SAT 90
[2024-12-19 18:29] LABS: MANUAL DIFF FLAG NO
[2024-12-19 18:32] LABS: Lymphocytes Absolute Auto 0.9 X10*3/uL (1.2-4.9); Mean Corpuscular HGB Conc 36.4 g/dl (31.0-36.0); NRBC Pct Auto 0.2 /100WBC (0.0-0.2)
[2024-12-19 18:36] LABS: Basophils Percent Auto 0.1 % (0-2); Hematocrit 25.3 % (42.0-52.0); Hemoglobin 9.2 g/dl (14.0-18.0); Imm Gran Abs Auto 0.11 X10*3/uL (0.00-0.03); Imm Gran Pct Auto 0.9 % (0.0-0.4); Lymphocytes Percent Auto 7.5 % (20-40); Mean Corpuscular Hemoglobin 34.8 pg (27.0-33.0); Mean Corpuscular Volume 95.8 fL (80.0-98.0); Mean Platelet Volume 11.4 fL (9.4-12.4); Monocytes Percent Auto 7.7 % (2-11); Neutrophils Absolute Auto 10.5 x10*3/uL (2.0-8.3); Neutrophils Percent Auto 83.8 % (45-73); Platelet Count 114 X10*3/uL (160-400); Red Blood Count 2.64 X10*6/uL (4.60-5.80); Red Cell Distribution Width 15.5 % (11.0-16.0); White Blood Count 12.5 X10*3/uL (4.8-10.8)
[2024-12-19 18:42] LABS: INTERNATIONAL NORM RATIO 0.9 (0.9-1.1); Prothrombin Time 10.6 SEC (10.9-12.4)
[2024-12-19 18:47] LABS: Alanine Aminotransferase 60 U/L (0-40); Albumin Level 3.6 g/dL (3.5-5.0); Alkaline Phosphatase 94 U/L (39-117); Anion Gap 21 (12-20); Aspartate Amino Transferase 159 U/L (5-37); Bilirubin Direct 0.6 mg/dL (0.0-0.5); Bilirubin Total 1.2 mg/dL (0.0-1.0); Blood Urea Nitrogen 44 mg/dL (9-16); Carbon Dioxide 25 mmol/L (22-29); Chloride 103 mmol/L (96-108); Creatinine Clr Calc Pharmacy 16.6; Estimated Glomerular Filt Rate 35; Glucose Random 138 mg/dL (60-115); Lipase 5 U/L (8-78); Potassium 4.8 mmol/L (3.3-5.1); Sodium 144 mmol/L (135-145); Total Protein 6.5 g/dL (6.5-8.0)
[2024-12-19 18:58] LABS: Troponin-I High Sensitivity 157.6 ng/L (<3.5-35.0)
[2024-12-19 19:02] LABS: B Type Natriuretic Peptide 844 pg/mL (<100)
--- NOTE | 2024-12-19 20:07 | PC.NURSE ---
Pt aox3, unsure of todays date. Oriented to self, place, and situation. Pt desat to 80% on RA. Placed on 2L NC with O2 improvement to 98%. Tolerating well. Monitoring is ongoing.
[2024-12-19 20:20] VITALS: BP 150/76; PULSE 100; RESP 18; TEMP 37.3; O2SAT 95
--- NOTE | 2024-12-19 20:33 | PC.NURSE ---
Pt request that family at bedside be given the money that is with security. White slip provided to security and sealed bag with money given to pts sandor Iverson . This transfer witnessed by this typewriter mechanic and Devora BERMUDEZ. Pt in agreement.
[2024-12-19 20:51] LABS: Troponin-I High Sensitivity 196.3 ng/L (<3.5-35.0)
[2024-12-19 20:59] LABS: Influenza A PCR NEGATIVE (Negative); Influenza B PCR NEGATIVE (Negative); Resp Syncy Virus RNA Qual PCR NEGATIVE (Negative); SARS COV2 PCR INHOUSE NEGATIVE (Negative)
--- NOTE | 2024-12-19 21:46 | P.HPHOSP_ITS ---
History of Present Illness Date of Service: 12/19/24 Chief Complaint: Fall This has a 79-year-old male with pertinent history of alcohol use disorder, gastroesophageal reflux disease, gout who was brought to the emergency department for evaluation after a fall. Patient states he fell in his home 1 day prior to presentation. Patient does not remember exactly how he fell or what was he doing in the time of fall but thinks he fell by mistake. He did not get dizzy or lightheaded before the fall. He had not pass out. No chest pain or palpitations before the fall. No rhythmic jerking movement of extremities or tongue bite. Does endorse intermittent alcohol use and he was possibly drinking on the day of the fall. Patient was lying on the floor for about 20-24 hours as he could not get up after the fall. Family found the patient on floor and called EMS. He has been complaining of right upper and lower extremity pain since the fall. No fever, chills, palpitations, shortness of breath, abdominal pain, changes in urinary or bowel habits. In the emergency department, creatinine found to be 1.88, creatinine kinase 3643, troponin 196. Imaging with Acute subcapital right femoral neck fracture, acute right superior and inferior pubic rami fracture, acute right clavicular fracture, acute olecranon fracture. Orthopedic surgery was consulted who requested admission to medicine team. Cardiology was consulted for elevated troponin who did not recommend anticoagulation as it was likely due to demand. Review of Systems 2 Constitutional: Constitutional: Reports fatigue, Reports lethargy, Reports malaise and Reports weakness Cardiovascular: Cardiovascular: Reports no additional cardiovascular complaints Respiratory: Respiratory: Reports no additional respiratory complaints Gastrointestinal: Gastrointestinal: Reports no additional gastrointestinal complaints Genitourinary: Genitourinary: Reports no additional male genitourinary complaints Neurologic: Reports weakness Endocrine: Endocrine: Reports fatigue [facility] Medical History Screening for hypercholesterolemia Hypertension Gout Hx of essential hypertension Family History Mother Ovarian cancer Father Heart attack Surgical History No pertinent past surgical history Social History Housing: House Alcohol intake: current Alcohol intake frequency: a few times a month Alcohol type: beer and hard liquor Patient Tobacco Use Status: Current everyday Tobacco user Tobacco use type: Cigarette Cigarettes Per Day: 8 Years Smoked: 55 e-Cigarette/Vaping Use: Never Used Second Hand Smoke Exposure: Yes Use of substances other than those prescribed or required for medical reasons: No Advance Directives: No Advance Directives Information Provided: Yes Do you have a plan to hurt others: No Plan service: No Current occupational status: retired Cognitive needs: Yes (cane/walker) Hearing needs: No Vision needs: Yes (glasses) Meds Allergies Allergy/AdvReac Type Severity Reaction Status Date / Time No Known Allergies Allergy Verified 12/19/24 17:52 [No Known Allergies*] Home Medications ?Medication ?Instructions ?Recorded ?Confirmed ?Last Taken ?Type naproxen 250 mg tablet 250 mg PO BID PRN 06/09/21 09/18/24 Unknown History Physical Exam 2 Vital Signs and Narrative: Vital Signs: Last Vital Signs Temp 99.1 F 12/19/24 20:20 Pulse 100 12/19/24 20:20 Resp 18 12/19/24 20:20 BP 150/76 H 12/19/24 20:20 Pulse Ox 95 12/19/24 20:20 O2 Del Method Nasal Cannula 12/19/24 20:20 O2 Flow Rate 2 12/19/24 20:20 BMI result Body Mass Index 14.7 Elderly male lying in bed in no distress Neck supple, no JVD, ecchymosis over right forehead and right chest Regular rate and rhythm, S1-S2 heard Regular breath sounds bilaterally, no wheezing or crackles appreciated Abdomen soft nontender, no guarding, no rigidity Patient is awake, alert and oriented x3 ; no focal motor deficit Psych: Normal mood Right lower extremity limited movement due to pain Results Labs 12/19/24 18:25 12/19/24 18:25 Labs: Laboratory Results - last 24 hr 12/19/24 12/19/24 12/19/24 18:25 18:26 20:16 MCV 95.8 MCH 34.8 H MCHC 36.4 H RDW 15.5 Plt Count 114 L D MPV 11.4 Immature Gran % (Auto) 0.9 H Neut % (Auto) 83.8 H Lymph % (Auto) 7.5 L [place] % (Auto) 7.7 Eos % (Auto) 0.0 Baso % (Auto) 0.1 Lymph # (Auto) 0.9 L [place] # (Auto) 1.0 Eos # (Auto) 0.0 Baso # (Auto) 0.0 Abs Immat Gran (auto) 0.11 H Absolute Neuts (auto) 10.5 H Absolute Nucleated RBC 0.030 H Nucleated RBC % (auto) 0.2 PT 10.6 L INR 0.9 Anion Gap 21 H Estim Creat Clear Calc 16.6 Estimated GFR 35 Random Glucose 138 H Calcium 9.0 Total Bilirubin 1.2 H Direct Bilirubin 0.6 H AST 159 H ALT 60 H Alkaline Phosphatase 94 Total Creatine Kinase 3643 H B-Natriuretic Peptide 844 H Total Protein 6.5 Albumin 3.6 Lipase 5 L Influenza Type A (PCR) NEGATIVE Influenza Type B (PCR) NEGATIVE RSV RNA Qual (PCR) NEGATIVE SARS-CoV-2 RNA (RT-PCR) NEGATIVE Assessment and Plan (1) Rhabdomyolysis: Status: Acute (2) Closed fracture of right hip: Status: Acute (3) Comminuted fracture of right humerus: Status: Acute (4) Elevated troponin: Status: Acute Plan This has a 79-year-old male with pertinent history of alcohol use disorder, gastroesophageal reflux disease, gout who was brought to the emergency department for evaluation after a fall. #. Acute kidney injury stage I: Monitor creatinine urine output with crystalloid resuscitation. Avoid nephrotoxins #. Acute mild traumatic rhabdomyolysis: Will admit patient and continue IV crystalloid resuscitation. Repeat creatine kinase in a.m. #. Unwitnessed fall: Likely mechanical. Patient denies syncope or presyncope prior to the fall. Denies chest pain/palpitations prior to the fall. No seizure-like activity. Will monitor on telemetry #. Acute subcapital right femoral neck fracture/Acute right superior and inferior pubic rami fracture/Acute right clavicular fracture/Acute olecranon fracture due to unwitnessed fall: Analgesia p.r.n.. Consulting orthopedic surgery, appreciate assistance #. Elevated troponin: Type 2 in the setting of increased demand #. Alcohol use disorder: Monitor CIWA. Initiating thiamine. Patient denies history of alcohol withdrawals #. Gastroesophageal reflux disease: On PPI Med rec pending DVT prophylaxis: Mechanical until orthopedic surgery evaluation Full code. Discussed with patient at bedside Admit as inpatient and will require two night minimum hospital stay for monitoring of kidney function, electrolytes including CK, evaluation and treatment of multiple acute fractures (as above), which is not possible in a lesser acute setting. Specialist consult pending Quality Stroke Does the patient have a stroke diagnosis?: No VTE Prior VTE?: No VTE Risk Level:: Medical - moderate - high VTE Device Contraindication: N/A - Device Ordered VTE Drug Contraindication: Treatment Not Indicated
[2024-12-19 21:58] VITALS: BP 156/69; PULSE 94; RESP 19; TEMP 36.8; O2SAT 96
[2024-12-19] MEDS: Melatonin 3 MG TABLET 6 MG PO (22:39)
[2024-12-19] MEDS: traMADoL HCL 50 MG TABLET PO (22:39)
--- NOTE | 2024-12-19 22:39 | PHA.MEDREC ---
Pharmacy Consult ? Medication Reconciliation Pharmacy has completed the medication reconciliation.MED REC DONE USING CLAIM HISTORY. PATIENT POOR HISTORIAN
--- NOTE | 2024-12-19 22:49 | PC.NURSE ---
Pt alert and oriented to self and situation. Seems confused at times thinking that he was at home. Easily re-oriented. Medicated with PO meds as per MAR and pt had some difficulty swallowing and coughed. O2 sat remained at 95% via 2L NC. Head of bead elevated to comfort. Joes text sent to hospitalist for a speech/swallow eval and NPO status initiated. Monitoring is ongoing.
[2024-12-20] VITALS (9 sets, daily range): BP systolic 133–160; BP diastolic 60–93; PULSE 86–97; RESP 12–18; TEMP 36.7–36.9; O2SAT 90–100; BMI 16.0
--- NOTE | 2024-12-20 00:16 | HO.SKINPHOTO ---
Location: Sacrum/coccyx area Category: Stage: Stage 2 ulcer Length: Width: Depth: cm Location: Category: Stage: Length: Width: Depth: cm Location: Category: Stage: Length: Width: Depth: cm Location: Category: Stage: Length: Width: Depth: cm Location: Category: Stage: Length: Width: Depth: cm Location: Category: Stage: Length: Width: Depth: cm
--- NOTE | 2024-12-20 00:19 | PC.NURSE ---
During skin assessment noted stage 2 ulcer. Purple skin bed with no slough or drainage noted. Wound cleaned and dressing applied. Pt to be repositioned every 2 hours. Morrison text sent to hospitalist.
[2024-12-20 06:19] LABS: MANUAL DIFF FLAG NO
[2024-12-20 06:30] LABS: Basophils Percent Auto 0.1 % (0-2); Hematocrit 23.4 % (42.0-52.0); Hemoglobin 8.5 g/dl (14.0-18.0); Imm Gran Abs Auto 0.07 X10*3/uL (0.00-0.03); Imm Gran Pct Auto 0.5 % (0.0-0.4); Lymphocytes Absolute Auto 1.3 X10*3/uL (1.2-4.9); Lymphocytes Percent Auto 9.8 % (20-40); Mean Corpuscular HGB Conc 36.3 g/dl (31.0-36.0); Mean Corpuscular Hemoglobin 35.1 pg (27.0-33.0); Mean Corpuscular Volume 96.7 fL (80.0-98.0); Mean Platelet Volume 11.9 fL (9.4-12.4); Monocytes Absolute Auto 1.1 X10*3/uL (0.1-1.2); Monocytes Percent Auto 7.8 % (2-11); NRBC Pct Auto 0.2 /100WBC (0.0-0.2); Neutrophils Absolute Auto 11.1 x10*3/uL (2.0-8.3); Neutrophils Percent Auto 81.8 % (45-73); Platelet Count 105 X10*3/uL (160-400); Red Blood Count 2.42 X10*6/uL (4.60-5.80); Red Cell Distribution Width 15.9 % (11.0-16.0); White Blood Count 13.6 X10*3/uL (4.8-10.8)
[2024-12-20 06:35] LABS: Alanine Aminotransferase 62 U/L (0-40); Albumin Level 3.2 g/dL (3.5-5.0); Alkaline Phosphatase 80 U/L (39-117); Anion Gap 17 (12-20); Aspartate Amino Transferase 184 U/L (5-37); Bilirubin Total 0.8 mg/dL (0.0-1.0); Blood Urea Nitrogen 49 mg/dL (9-16); Calcium 8.3 mg/dL (8.4-10.2); Carbon Dioxide 23 mmol/L (22-29); Chloride 107 mmol/L (96-108); Creatinine Clr Calc Pharmacy 17.4; Estimated Glomerular Filt Rate 36; Glucose Random 105 mg/dL (60-115); Potassium 5.1 mmol/L (3.3-5.1); Sodium 142 mmol/L (135-145); Total Protein 5.8 g/dL (6.5-8.0)
--- NOTE | 2024-12-20 07:52 | PC.NURSE ---
Assumed care of patient at 0700, alert but with confusion. Per previous shift report patient has been tremulous but CIWA score has remained low. Patient continues to be tremulous, denies pain or discomfort at this time. Seen by ortho, plan to keep npo until medical team determines if patient can be cleared for surgery.
[2024-12-20] MEDS: 0.9 % Sodium Chloride Flush 3 ML SYRINGE IVFLUSH (08:00)
[2024-12-20 08:10] LABS: Appearance Urine Clear; Color Urine Yellow; Glucose Urine UA Negative (Negative); Leukocyte Esterase Urine Negative (Negative); Nitrite Urine Negative (Negative); PH 5.5 (5.0-9.0); UMIC TRIGGER UACC YES; Urine Blood Small (1+) (Negative); Urine Ketones Trace mg/dL (Negative); Urine Protein 30 (1+) mg/dL (Neg-Trace)
[2024-12-20 08:27] LABS: Bacteria Urine None Seen (None Seen); Hyaline Casts Urine 0-2 /LPF (0-2); RBC Urine 0-2 /HPF (0-2); Squamous Epithelial Cell Urine 0-2 /HPF (0-2); WBC Urine 0-5 /HPF (0-5)
--- NOTE | 2024-12-20 08:36 | MHC.SLORD ---
Speech Language Pathology Order Status: Received order for bedside swallow eval 22:49 last night after patient reportedly coughed on PO meds with water. RN documented this morning patient will be kept NPO until determination is made whether patient can be cleared for surgery today. Discussed w/ hospitalist- Hold on swallow eval for now.
--- NOTE | 2024-12-20 08:37 | MHC.CLN ---
NUTRITION PATIENT IN ED. BMI=14.7, UNDERWEIGHT. DIET IS NPO PENDING SWALLOW EVAL. REVIEW OF WEIGHT HX SHOWS WEIGHT STABLE X ONE YEAR. RD TO COMPLETE NUTRITION ASSESSMENT UPON ADM TO HOSPITAL.
--- NOTE | 2024-12-20 09:45 | CA_ITS ---
Transthoracic Echocardiogram Patient (Last, First, Middle): Rikki Razo, Gender: Male Date of : 1945 Age: 79 Procedure Date: 12/20/2024 Procedure Type: Transthoracic Echocardiogram Location: ER Height: 160.02 cm Weight: 37.2 kg BSA: 1.32 m2 Heart Rate: bpm BP: 153 / 74 mmHg [employer] Supervisor: TO Referring MD: Shan Smith MD Symptoms: pre op eval Study Quality: Technically Difficult ECG Rhythm: Sinus Conclusions: - The left ventricular systolic function is low normal. The visually estimated ejection fraction is between 50-55%. - Possible basal inferolateral hypokinesis. - No obvious valvular pathology seen on this study. Findings Procedure Information The study quality is limited by the patients inability to tolerate the test and patients body habitus. Left Ventricle Normal left ventricular cavity size. The left ventricular systolic function is low normal. The visually estimated ejection fraction is between 50-55%. Diastolic function is normal for age. There is mild septal and mild basal asymmetric hypertrophy. Possible basal inferolateral hypokinesis. Right Ventricle Normal right ventricular cavity size and systolic function. Atria Both atria are normal in size. Aortic Valve There is a normal trileaflet aortic valve. There is mild calcification of the aortic valve. There is no aortic valve stenosis. There is no aortic valve regurgitation. Mitral Valve The mitral valve appears normal. There is mild mitral valve regurgitation. There is no mitral valve stenosis. Pulmonic Valve The pulmonic valve is likely normal. Tricuspid Valve There is trace tricuspid valve regurgitation. There is no evidence of pulmonary hypertension. Great Vessels The asc aorta is normal in size. Venous The inferior vena cava is normal in size and collapses greater than 50% with inspiration. Pericardium/Pleural There is no evidence of pericardial effusion. Prior Study Comparison No prior study available for comparison. Recommendations, Care & Conclusions No obvious valvular pathology seen on this study. Measurements 2D Linear Measurements IVSd: 0.93 0.6-0.9/0.6-1.0 cm LVIDd: 3.77 3.9-5.3/4.2-5.9 cm LVIDd Index: 2.86 2.4-3.2/2.2-3.1 cm/m2 LVIDs: 2.65 2.0-3.6 cm LVPWd: 0.76 0.7-1.1 cm LA Diam: 2.80 2.7-3.8/3.0-4.0 cm LAIDs Index: 2.12 1.5-2.3 cm/m2 LV Mass: 113.46 67-162/88-224 g LV Mass Index: 85.96 43-95/49-115 g/m2 LVOT Diam: 2.20 3.0+(-)1.3 cm 2D Systolic Function EF 4C: 50.20 >55% Mitral Valve MV Pk E: 0.27 MV PK A: 0.45 MV Decel Time: 104.00 E/A: 0.60 E'Lateral: 4.68 E'Medial: 5.87 E/E' Med: 4.50 E/E' Lat: 5.70 PHT: 30.00 MVA PHT: 7.33 Decel Kimble: 2.56 LVOT LVOT Pk Christiano: 0.52 LVOT Mn Christiano: 0.35 LVOT VTI: 0.09 LVOT Pk Grad: 1.00 LVOT Mn Grad: 1.00 LVOT Diam: 2.20 LVOT Area: 3.80 Diastolic Function MV Pk E: 0.27 MV Pk A: 0.45 E/A: 0.60 E'Medial: 5.87 E/E' Med: 4.50 E' Laterial: 4.68 E/E' Lat: 5.70 Right Ventricle TAPSE (mm): 16.10 TVS' Christiano: 18.80 Tricuspid Valve TR Pk Christiano: 2.58 TR Pk Grad: 27.00 RA Press: 3.00 RVSP: 30.00 Great Vessels Aorta Sinus of Valsalva: 3.35 2.0-3.5 cm Ao Asc: 3.10 2.1-3.4 cm Updated in Other Vendor System with Status of Final Shan Smith MD electronically signed on 12/20/2024 12:43:06 PM with status of Final
--- NOTE | 2024-12-20 10:18 | PM.CNOR ---
History of Present Illness HPI Consult date: 12/20/24 Chief complaint: Fall Narrative: Patient is an 79-year-old male with past medical history significant for alcohol use disorder, malnutrition, osteoporosis, gout admitted after a fall and being down on the floor for approximately 20 hours Patient was brought to the emergency department, where x-rays revealed multiple fractures, including the right subcapital hip, superior and inferior pubic rami, clavicle, and olecranon process of the right elbow Patient also found to have rhabdomyolysis and elevated troponin in the ED Patient resting in bed this morning, reports significant pain throughout his body, worse on the right side No acute events overnight No other acute complaints or concerns at this time Review of Systems Review of Systems: Yes all other systems are reviewed and are negative PMFSH Past Medical History Medical History Screening for hypercholesterolemia Hypertension Gout Hx of essential hypertension Family History Family History Mother Ovarian cancer Father Heart attack Surgical History Surgical History No pertinent past surgical history Social History Social History Housing: House Alcohol intake: current Alcohol intake frequency: a few times a month Alcohol type: beer and hard liquor Patient Tobacco Use Status: Tobacco use Unknown Tobacco use type: Cigarette Cigarettes Per Day: 8 Years Smoked: 55 e-Cigarette/Vaping Use: Never Used Second Hand Smoke Exposure: Yes Use of substances other than those prescribed or required for medical reasons: No Advance Directives: No Advance Directives Information Provided: Yes Do you have a plan to hurt others: No Plan Nutrition Risks: No Nutritional Risk service: No Current occupational status: retired Cognitive needs: Yes (cane/walker) Hearing needs: No Vision needs: Yes (glasses) Meds Allergies Allergy/AdvReac Type Severity Reaction Status Date / Time No Known Allergies Allergy Verified 12/19/24 17:52 [No Known Allergies*] Active Medications: Current Medications Acetaminophen (Acetaminophen 325 Mg Tablet) 650 mg PO Q6H PRN PRN Reason: Pain, Mild 1-3,fever,headache Calcium Carbonate (Calcium Carbonate 750 Mg Tab.Chew) 750 mg PO Q4H PRN PRN Reason: Heartburn Cefazolin Sodium/Dextrose (Ancef) 2 gm in 50 mls @ 100 mls/hr IV PREOP ONE Stop: 12/21/24 06:29 Magnesium Hydroxide (Milk Of Magnesia 30 Ml Oral.Susp) 30 ml PO DAILY PRN PRN Reason: Constipation Melatonin (Melatonin 3 Mg Tablet) 6 mg PO BEDTIME PRN PRN Reason: Insomnia Last Admin: 12/19/24 22:39 Dose: 6 mg Omeprazole (Omeprazole 20 Mg Capsule.Dr) 20 mg PO DAILY [facility] Last Admin: 12/20/24 08:32 Dose: Not Given Ondansetron HCl (Ondansetron Hcl 4 Mg/2 Ml Vial) 4 mg IVPUSH Q8H PRN PRN Reason: Nausea and Vomiting Sodium Chloride (0.9 % Sodium Chloride Flush 3 Ml Syringe) 3 ml IVFLUSH QSHIFT [facility] Last Admin: 12/20/24 08:00 Dose: 3 ml Thiamine HCl (Thiamine Hcl 100 Mg Tablet) 100 mg PO DAILY [facility] Last Admin: 12/20/24 08:01 Dose: Not Given Tramadol HCl (Tramadol Hcl 50 Mg Tablet) 50 mg PO Q6H PRN PRN Reason: Pain, Severe (Pain Scale 7-10) Last Admin: 12/19/24 22:39 Dose: 50 mg Physical Exam Vital Signs: Vital Signs: Last Vital Signs Temp 98.5 F 12/20/24 07:48 Pulse 86 12/20/24 09:30 Resp 16 12/20/24 09:30 BP 153/77 H 12/20/24 09:30 Pulse Ox 99 12/20/24 09:30 O2 Del Method Nasal Cannula 12/20/24 09:30 O2 Flow Rate 2 12/20/24 09:30 BMI result Body Mass Index 14.7 Extrem: Other: On inspection, there is no visible deformity of the patient's right hip There is significant swelling and ecchymosis to the patient's right elbow, consistent with the olecranon fracture No evidence of surrounding erythema, ecchymosis No evidence of infection Patient is able to flex and extend the digits of the right foot without difficulty Compartments soft, nontender Distal sensation intact Capillary refill brisk Results Labs 12/20/24 06:10 05/09/25 06:10 Labs: Abnormal lab results 05/08/25 05/08/25 05/08/25 Range/Units 18:25 18:26 20:16 WBC 12.5 H (4.8-10.8) X10*3/uL RBC 2.64 L D (4.60-5.80) X10*6/uL Hgb 9.2 L D (14.0-18.0) g/dl Hct 25.3 L D (42.0-52.0) % MCH 34.8 H (27.0-33.0) pg MCHC 36.4 H (31.0-36.0) g/dl Plt Count 114 L D (160-400) X10*3/uL Immature Gran % (Auto) 0.9 H (0.0-0.4) % Neut % (Auto) 83.8 H (45-73) % Lymph % (Auto) 7.5 L (20-40) % Lymph # (Auto) 0.9 L (1.2-4.9) X10*3/uL Abs Immat Gran (auto) 0.11 H (0.00-0.03) X10*3/uL Absolute Neuts (auto) 10.5 H (2.0-8.3) x10*3/uL Absolute Nucleated RBC 0.030 H (0.0-0.012) X10*3/uL PT 10.6 L (10.9-12.4) SEC Anion Gap 21 H (12-20) BUN 44 H (9-16) mg/dL Creatinine 1.88 H (0.5-1.4) mg/dL Random Glucose 138 H (60-115) mg/dL Calcium (8.4-10.2) mg/dL Total Bilirubin 1.2 H (0.0-1.0) mg/dL Direct Bilirubin 0.6 H (0.0-0.5) mg/dL AST 159 H (5-37) U/L ALT 60 H (0-40) U/L Total Creatine Kinase 3643 H (38-174) U/L Troponin I High Sens 157.6 H* 196.3 H* (<3.5-35.0) ng/L B-Natriuretic Peptide 844 H (<100) pg/mL Total Protein (6.5-8.0) g/dL Albumin (3.5-5.0) g/dL Lipase 5 L (8-78) U/L Urine Protein (Neg-Trace) mg/dL Urine Blood (Negative) 12/20/24 12/20/24 Range/Units 06:10 07:55 WBC 13.6 H (4.8-10.8) X10*3/uL RBC 2.42 L (4.60-5.80) X10*6/uL Hgb 8.5 L (14.0-18.0) g/dl Hct 23.4 L (42.0-52.0) % MCH 35.1 H (27.0-33.0) pg MCHC 36.3 H (31.0-36.0) g/dl Plt Count 105 L (160-400) X10*3/uL Immature Gran % (Auto) 0.5 H (0.0-0.4) % Neut % (Auto) 81.8 H (45-73) % Lymph % (Auto) 9.8 L (20-40) % Lymph # (Auto) (1.2-4.9) X10*3/uL Abs Immat Gran (auto) 0.07 H (0.00-0.03) X10*3/uL Absolute Neuts (auto) 11.1 H (2.0-8.3) x10*3/uL Absolute Nucleated RBC 0.030 H (0.0-0.012) X10*3/uL PT (10.9-12.4) SEC Anion Gap (12-20) BUN 49 H (9-16) mg/dL Creatinine 1.80 H (0.5-1.4) mg/dL Random Glucose (60-115) mg/dL Calcium 8.3 L D (8.4-10.2) mg/dL Total Bilirubin (0.0-1.0) mg/dL Direct Bilirubin (0.0-0.5) mg/dL AST 184 H (5-37) U/L ALT 62 H (0-40) U/L Total Creatine Kinase 3531 H (38-174) U/L Troponin I High Sens (<3.5-35.0) ng/L B-Natriuretic Peptide (<100) pg/mL Total Protein 5.8 L (6.5-8.0) g/dL Albumin 3.2 L (3.5-5.0) g/dL Lipase (8-78) U/L Urine Protein 30 (1+) H (Neg-Trace) mg/dL Urine Blood Small (1+) H (Negative) H & H 12/19/24 12/20/24 Range/Units 18:25 06:10 Hgb 9.2 L D 8.5 L (14.0-18.0) g/dl Hct 25.3 L D 23.4 L (42.0-52.0) % Coagulation 12/19/24 Range/Units 18:26 INR 0.9 (0.9-1.1) All other labs normal. Assessment and Plan (1) Closed fracture of right hip: Status: Acute (2) Fracture of right inferior pubic ramus: Status: Acute (3) Fracture of right superior pubic ramus: Status: Acute (4) Fracture of right olecranon process: Status: Acute Plan 1. Subcapital fracture of right hip 2. Olecranon fracture right elbow, displaced Date of injury approximately 12/18/2024 Case was discussed with Dr. Alejandro, and a collaborative treatment plan was formed: I educated the patient about the condition. I discussed both operative and nonoperative treatment options. The patient would like to proceed with surgery. The risks and benefits of operative treatment were discussed with the patient and the patient wishes to proceed with surgery. These risks include, but are not limited to, risk of damage to blood vessels, nerves, tendons, infection, recurrence, incomplete relief of preoperative symptoms, persistent pain, possible need for further surgery, and the risks associated with regional blocks and/or anesthesia. Plan is to take the patient to the operating room tomorrow, 12/21/2024 for the following procedures: 1. Right hip hemiarthroplasty Dr. Alejandro also discussed this case with Dr. Mendez, and he will perform ORIF of right olecranon fracture next week NPO at midnight Continue pain management Continue with all other recommendations per Medicine Procedures Date of Service Date of Service: 12/20/24
--- NOTE | 2024-12-20 10:38 | PC.NURSE ---
Patient aware the plan is to have surgery on hip tomorrow. upper denture in container at bedside
--- NOTE | 2024-12-20 10:46 | PC.NURSE ---
Patient requesting to eat and drink, is NPO d/t aspiration event on previous shift. Message sent to speech to see patient today now that surgery is not scheduled until tomorrow.
--- NOTE | 2024-12-20 11:06 | PM.CNCAR ---
History of Present Illness History of Present Illness Date of Service: 12/20/24 Chief complaint: Fall Narrative: This is a cardiology consultation regarding preoperative evaluation for hip surgery. He also has elevated troponins and hence another reason for consult. Patient himself denies any history of coronary disease or myocardial infarction or cardiomyopathy or in fact any other cardiac issues. It seems that he had a fall. According to him, he probably slipped and fell but in the H and P, reported to be unwitnessed fall. Patient denies any history of syncopal episodes preceding this. No other complaints like chest pains or shortness of breath or in fact anything cardiac sounding. After he was evaluated in the ER, found to have hip fracture and additionally increased CK/troponin which was suggestive of rather rhabdomyolysis. There is plan for hip surgery in this admission. Review of Systems Review of Systems: Yes all other systems are reviewed and are negative Constitutional: Constitutional: Reports as per HPI and Reports no additional constitutional complaints Eyes: Eyes: Reports as per HPI and Denies no additional eye complaints ENT: Denies system reviewed and no additional complaints, except as documented and Reports as per HPI Cardiovascular: Cardiovascular: Reports as per HPI, Reports no additional cardiovascular complaints, Denies acrocyanosis, Denies cool extremities, Denies chest pain, Denies leg edema, Denies lightheadedness, Denies palpitations and Denies dyspnea Respiratory: Respiratory: Reports as per HPI, Denies no additional respiratory complaints and Denies dyspnea Gastrointestinal: Gastrointestinal: Reports as per HPI and Denies no additional gastrointestinal complaints Genitourinary: Genitourinary: Reports no additional male genitourinary complaints and Reports as per HPI Musculoskeletal: Musculoskeletal: Reports no additional musculoskeletal complaints and Reports as per HPI Integumentary/Breasts: Skin/Breast: Reports system reviewed and no additional complaints, except as docu Neurologic: Reports system reviewed and no additional complaints, except as documented and Reports as per HPI Psychiatric: Psychiatric: Reports no additional psychiatric complaints and Reports as per HPI Endocrine: Endocrine: Reports no additional endocrine complaints, Reports as per HPI and Denies palpitations Hematologic/Lymphatic: Hematologic/Lymphatic: Reports no additional hematologic/lymphatic complaints and Reports as per HPI Allergic/Immunologic: Allergic/Immunologic: Reports no additional allergic/immunologic complaints and Reports as per HPI [facility] Past Medical History Medical History Screening for hypercholesterolemia Hypertension Gout Hx of essential hypertension Family History Family History Mother Ovarian cancer Father Heart attack Surgical History Surgical History No pertinent past surgical history Social History Social History Housing: House Alcohol intake: current Alcohol intake frequency: a few times a month Alcohol type: beer and hard liquor Patient Tobacco Use Status: Tobacco use Unknown Tobacco use type: Cigarette Cigarettes Per Day: 8 Years Smoked: 55 e-Cigarette/Vaping Use: Never Used Second Hand Smoke Exposure: Yes Use of substances other than those prescribed or required for medical reasons: No Advance Directives: No Advance Directives Information Provided: Yes Do you have a plan to hurt others: No Plan Nutrition Risks: No Nutritional Risk service: No Current occupational status: retired Cognitive needs: Yes (cane/walker) Hearing needs: No Vision needs: Yes (glasses) Meds Allergies Allergy/AdvReac Type Severity Reaction Status Date / Time No Known Allergies Allergy Verified 12/19/24 17:52 [No Known Allergies*] Active Medications: Current Medications Acetaminophen (Acetaminophen 325 Mg Tablet) 650 mg PO Q6H PRN PRN Reason: Pain, Mild 1-3,fever,headache Calcium Carbonate (Calcium Carbonate 750 Mg Tab.Chew) 750 mg PO Q4H PRN PRN Reason: Heartburn Cefazolin Sodium/Dextrose (Ancef) 2 gm in 50 mls @ 100 mls/hr IV PREOP ONE Stop: 12/21/24 06:29 Magnesium Hydroxide (Milk Of Magnesia 30 Ml Oral.Susp) 30 ml PO DAILY PRN PRN Reason: Constipation Melatonin (Melatonin 3 Mg Tablet) 6 mg PO BEDTIME PRN PRN Reason: Insomnia Last Admin: 12/19/24 22:39 Dose: 6 mg Omeprazole (Omeprazole 20 Mg Capsule.Dr) 20 mg PO DAILY [facility] Last Admin: 12/20/24 08:32 Dose: Not Given Ondansetron HCl (Ondansetron Hcl 4 Mg/2 Ml Vial) 4 mg IVPUSH Q8H PRN PRN Reason: Nausea and Vomiting Sodium Chloride (0.9 % Sodium Chloride Flush 3 Ml Syringe) 3 ml IVFLUSH QSHIFT [facility] Last Admin: 12/20/24 08:00 Dose: 3 ml Thiamine HCl (Thiamine Hcl 100 Mg Tablet) 100 mg PO DAILY [facility] Last Admin: 12/20/24 08:01 Dose: Not Given Tramadol HCl (Tramadol Hcl 50 Mg Tablet) 50 mg PO Q6H PRN PRN Reason: Pain, Severe (Pain Scale 7-10) Last Admin: 12/19/24 22:39 Dose: 50 mg Physical Exam Vital Signs: Vital Signs: Last Vital Signs Temp 98.5 F 12/20/24 07:48 Pulse 86 12/20/24 09:30 Resp 16 12/20/24 09:30 BP 153/77 H 12/20/24 09:30 Pulse Ox 99 12/20/24 09:30 O2 Del Method Nasal Cannula 12/20/24 09:30 O2 Flow Rate 2 12/20/24 09:30 BMI result Body Mass Index 14.7 Const: General: comfortable and no acute distress Nutritional Appearance: cachectic, malnourished and underweight Orientation/consciousness: patient oriented x3 HEENT: Other: Unremarkable Head: Yes normal to inspection Neck: Neck: Yes normal visual inspection Chest: Chest palpation & inspection: normal inspection of the chest Resp: Auscultation: clear to auscultation bilaterally Cardio: Palpation: normal PMI Heart sounds: S1 normal heart sound present, S2 normal heart sound present, no gallops, no murmurs and no rubs GI: Palpation (GI): Soft to palpation Back/Spine/Pelvis: Other: unremarkable Skin: General skin exam: no rashes or lesions noted Neuro: General: patient oriented x3 Extrem: General: Yes normal to inspection Psych: Mental Status: mental status grossly normal Objective Labs and Meds 12/20/24 06:10 12/20/24 06:10 Lab results: Laboratory Results - last 24 hr 12/19/24 12/19/24 12/19/24 18:25 18:26 20:16 WBC 12.5 H RBC 2.64 L D Hgb 9.2 L D Hct 25.3 L D MCV 95.8 MCH 34.8 H MCHC 36.4 H RDW 15.5 Plt Count 114 L D MPV 11.4 Immature Gran % (Auto) 0.9 H Neut % (Auto) 83.8 H Lymph % (Auto) 7.5 L [place] % (Auto) 7.7 Eos % (Auto) 0.0 Baso % (Auto) 0.1 Lymph # (Auto) 0.9 L [place] # (Auto) 1.0 Eos # (Auto) 0.0 Baso # (Auto) 0.0 Abs Immat Gran (auto) 0.11 H Absolute Neuts (auto) 10.5 H Absolute Nucleated RBC 0.030 H Nucleated RBC % (auto) 0.2 PT 10.6 L INR 0.9 Sodium 144 Potassium 4.8 Chloride 103 Carbon Dioxide 25 Anion Gap 21 H BUN 44 H Creatinine 1.88 H Estim Creat Clear Calc 16.6 Estimated GFR 35 Random Glucose 138 H Calcium 9.0 Total Bilirubin 1.2 H Direct Bilirubin 0.6 H AST 159 H ALT 60 H Alkaline Phosphatase 94 Total Creatine Kinase 3643 H Troponin I High Sens 157.6 H* 196.3 H* B-Natriuretic Peptide 844 H Total Protein 6.5 Albumin 3.6 Lipase 5 L Urine Color Urine Appearance Urine pH Ur Specific [place] Urine Protein Urine Glucose (UA) Urine Ketones Urine Blood Urine Nitrite Ur Leukocyte Esterase Urine RBC Urine WBC Ur Squamous Epith Cells Urine Bacteria Hyaline Casts Influenza Type A (PCR) NEGATIVE Influenza Type B (PCR) NEGATIVE RSV RNA Qual (PCR) NEGATIVE SARS-CoV-2 RNA (RT-PCR) NEGATIVE 12/20/24 12/20/24 06:10 07:55 WBC 13.6 H RBC 2.42 L Hgb 8.5 L Hct 23.4 L MCV 96.7 MCH 35.1 H MCHC 36.3 H RDW 15.9 Plt Count 105 L MPV 11.9 Immature Gran % (Auto) 0.5 H Neut % (Auto) 81.8 H Lymph % (Auto) 9.8 L [place] % (Auto) 7.8 Eos % (Auto) 0.0 Baso % (Auto) 0.1 Lymph # (Auto) 1.3 [place] # (Auto) 1.1 Eos # (Auto) 0.0 Baso # (Auto) 0.0 Abs Immat Gran (auto) 0.07 H Absolute Neuts (auto) 11.1 H Absolute Nucleated RBC 0.030 H Nucleated RBC % (auto) 0.2 PT INR Sodium 142 Potassium 5.1 Chloride 107 Carbon Dioxide 23 Anion Gap 17 BUN 49 H Creatinine 1.80 H Estim Creat Clear Calc 17.4 Estimated GFR 36 Random Glucose 105 Calcium 8.3 L D Total Bilirubin 0.8 Direct Bilirubin AST 184 H ALT 62 H Alkaline Phosphatase 80 Total Creatine Kinase 3531 H Troponin I High Sens B-Natriuretic Peptide Total Protein 5.8 L Albumin 3.2 L Lipase Urine Color Yellow Urine Appearance Clear Urine pH 5.5 Ur Specific [place] 1.020 Urine Protein 30 (1+) H Urine Glucose (UA) Negative Urine Ketones Trace Urine Blood Small (1+) H Urine Nitrite Negative Ur Leukocyte Esterase Negative Urine RBC 0-2 Urine WBC 0-5 Ur Squamous Epith Cells 0-2 Urine Bacteria None Seen Hyaline Casts 0-2 Influenza Type A (PCR) Influenza Type B (PCR) RSV RNA Qual (PCR) SARS-CoV-2 RNA (RT-PCR) ECG Interpretation: EKG with underlying sinus rhythm at 104/Min; slight ST-depression in the inferior leads. Normal ME and corrected QT. there is also a lot of artifact. Assessment and Plan (1) Fall: Status: Acute (2) Closed fracture of right hip: Status: Acute (3) Rhabdomyolysis: Status: Acute (4) Elevated troponin: Status: Acute Plan Labs reviewed. High sensitivity troponins are 157 and 196. CKs are 3643 and 3531. Cardiac BNP is 844. BUN is 49 creatinine is 1.8. Overall, it seems like probable mechanical fall from malnourishment/weakness and less of a syncopal episode. Patient clearly denies syncope. Lab findings are probably from rhabdomyolysis and less likely related to NSTEMI. He has no clinical chest pain. Hydrate him and treat for renal failure/rhabdomyolysis. We can obtain a baseline echocardiogram. Considering the fact that he is markedly under nourished, of advanced age, he would be at at least intermediate risk for hip surgery. May proceed as planned. Will review the echocardiogram once completed. Procedures Date of Service Date of Service: 12/20/24
--- NOTE | 2024-12-20 11:14 | PC.NURSE ---
Report received. Taken over care at this time.
--- NOTE | 2024-12-20 12:51 | MHC.CM.PN ---
PT REPORTS HE IS NOT WELL EOUGH TO ANSWER QUESTIONS HOWEVER, HE DID SIGN THE [facility] FORM IMM DELIVERED WELL.
--- NOTE | 2024-12-20 13:15 | PC.NURSE ---
Called kitchen for tray.
--- NOTE | 2024-12-20 13:44 | MHC.SL.SWA ---
Speech Pathologist Impression: Moderate Oropharyngeal Dysphagia Dysphasia Diet Status: START on NDD1/NTL Liquid Consistency and Strategies for Safe Swallow: Liquid Intake Recommendation: [place] Thick Solid Food Consistency: Dietary Recommendations: Pureed (NDD1) Additional Modifications to Solid Foods: Patient presents with moderate oropharyngeal dysphagia, with slowed oral phase, maladaptive tongue pumping/munching behavior, and delayed/effortful swallow. Patient evidenced overt s/s of aspiration on thin liquids, with nursing staff reporting patient coughed when taking pills with water earlier this morning. Patient has upper denture with him, however, it is ill-fitting and his bottom denture is missing. Patient presented with lingual tremor, which did seem to affect his ability to manipulate semi-solid bolus. Also note hx of GERD, for which patient reportedly takes PPI. Recommend START on PUREED (NDD1) diet and NECTAR THICK liquids, pills CRUSHED in PUREE. Patient attempts to feed himself, but tends to spill and has difficulty reaching up to his mouth. He will need assistance feeding. Oral Medication Intake: Crushed with Puree Please contact the pharmacy regarding appropriate crushable or liquid drug formulations that are available whenever modified delivery is recommended. Supervision While Eating and Drinking for Safe Swallow: Total Assistance (1:1) Recommendation for Speech: Inpatient Speech Therapy Frequency/Duration: M-F while inpatient Date Range for Service Req: Timeline to reassess: Union Contract Representative Clinican/Clinical Fellow: No Supervisory Statement: I have reviewed and agree with the student/clinical fellow's documentation: N/A Speech Language Pathologist: Lenore Thakkar M.A., CCC-FLAT EXAMINER
--- NOTE | 2024-12-20 13:57 | HO.PM.IMPN ---
Subjective Subjective Date of Service: 12/20/24 Interval History: seen and examined this morning follow up for fall, multiple fractures, dysphagia, rhabdo awake, alert; not in pain when laying still. no chest pain, no sob Review of Systems Review of Systems: Yes all other systems are reviewed and are negative Constitutional Constitutional: Denies chills and Denies fever(s) Cardiovascular Cardiovascular: Denies chest pain, Denies palpitations and Denies dyspnea Respiratory Respiratory: Denies cough and Denies dyspnea Gastrointestinal Gastrointestinal: Denies abdominal pain, Denies nausea and Denies vomiting Endocrine Endocrine: Denies palpitations Physical Exam Vital Signs: Vital Signs: Last Vital Signs Temp 98.5 F 12/20/24 07:48 Pulse 86 12/20/24 09:30 Resp 16 12/20/24 09:30 BP 153/77 H 12/20/24 09:30 Pulse Ox 99 12/20/24 09:30 O2 Del Method Nasal Cannula 12/20/24 09:30 O2 Flow Rate 2 12/20/24 09:30 BMI result Body Mass Index 14.7 Const: General: cooperative, alert and awake Nutritional Appearance: thin Orientation/consciousness: patient oriented x3 Resp: Effort & Inspection: normal respiratory effort, able to speak in complete sentences, no respiratory distress and no use of accessory muscles Cardio: Rate: regular rate GI: Inspection: No distended Palpation (GI): Soft to palpation and nontender Neuro: General: patient oriented x3, moves all extremities and CN's II-XI intact bilaterally Extrem: Other: right elbow swelling/bruising General: Yes no pedal edema Objective Data Active Medications Acetaminophen (Acetaminophen 325 Mg Tablet) 650 mg PO Q6H PRN PRN Reason: Pain, Mild 1-3,fever,headache Calcium Carbonate (Calcium Carbonate 750 Mg Tab.Chew) 750 mg PO Q4H PRN PRN Reason: Heartburn Cefazolin Sodium/Dextrose (Ancef) 2 gm in 50 mls @ 100 mls/hr IV PREOP ONE Stop: 12/21/24 06:29 Magnesium Hydroxide (Milk Of Magnesia 30 Ml Oral.Susp) 30 ml PO DAILY PRN PRN Reason: Constipation Melatonin (Melatonin 3 Mg Tablet) 6 mg PO BEDTIME PRN PRN Reason: Insomnia Last Admin: 12/19/24 22:39 Dose: 6 mg Documented By: LEA Omeprazole (Omeprazole 20 Mg Capsule.Dr) 20 mg PO DAILY COUNT INCLUDES THE [facility] Last Admin: 12/20/24 08:32 Dose: Not Given Documented By: ADELAIDA Non-Admin Reason: Physician Held Med Ondansetron HCl (Ondansetron Hcl 4 Mg/2 Ml Vial) 4 mg IVPUSH Q8H PRN PRN Reason: Nausea and Vomiting Sodium Chloride (0.9 % Sodium Chloride Flush 3 Ml Syringe) 3 ml IVFLUSH QSHIFT COUNT INCLUDES THE [facility] Last Admin: 12/20/24 08:00 Dose: 3 ml Documented By: ADELAIDA Thiamine HCl (Thiamine Hcl 100 Mg Tablet) 100 mg PO DAILY COUNT INCLUDES THE [facility] Last Admin: 12/20/24 08:01 Dose: Not Given Documented By: ADELAIDA Non-Admin Reason: Physician Held Med Tramadol HCl (Tramadol Hcl 50 Mg Tablet) 50 mg PO Q6H PRN PRN Reason: Pain, Severe (Pain Scale 7-10) Last Admin: 12/19/24 22:39 Dose: 50 mg Documented By: LEA Labs 12/20/24 06:10 12/20/24 06:10 Labs: Laboratory Results - last 24 hr 12/19/24 12/19/24 12/19/24 18:25 18:26 20:16 MCV 95.8 MCH 34.8 H MCHC 36.4 H RDW 15.5 Plt Count 114 L D MPV 11.4 Immature Gran % (Auto) 0.9 H Neut % (Auto) 83.8 H Lymph % (Auto) 7.[address] [place] % (Auto) 7.7 Eos % (Auto) 0.0 Baso % (Auto) 0.1 Lymph # (Auto) 0.[address] [place] # (Auto) 1.0 Eos # (Auto) 0.0 Baso # (Auto) 0.0 Abs Immat Gran (auto) 0.11 H Absolute Neuts (auto) 10.5 H Absolute Nucleated RBC 0.030 H Nucleated RBC % (auto) 0.2 PT 10.6 L INR 0.9 Anion Gap 21 H Estim Creat Clear Calc 16.6 Estimated GFR 35 Random Glucose 138 H Calcium 9.0 Total Bilirubin 1.2 H Direct Bilirubin 0.6 H AST 159 H ALT 60 H Alkaline Phosphatase 94 Total Creatine Kinase 3643 H B-Natriuretic Peptide 844 H Total Protein 6.5 Albumin 3.6 Lipase 5 L Urine Color Urine Appearance Urine pH Ur Specific [place] Urine Protein Urine Glucose (UA) Urine Ketones Urine Blood Urine Nitrite Ur Leukocyte Esterase Urine RBC Urine WBC Ur Squamous Epith Cells Urine Bacteria Hyaline Casts Influenza Type A (PCR) NEGATIVE Influenza Type B (PCR) NEGATIVE RSV RNA Qual (PCR) NEGATIVE SARS-CoV-2 RNA (RT-PCR) NEGATIVE 12/20/24 12/20/24 06:10 07:55 MCV 96.7 MCH 35.1 H MCHC 36.3 H RDW 15.9 Plt Count 105 L MPV 11.9 Immature Gran % (Auto) 0.5 H Neut % (Auto) 81.8 H Lymph % (Auto) 9.[address] [place] % (Auto) 7.8 Eos % (Auto) 0.0 Baso % (Auto) 0.1 Lymph # (Auto) 1.3 [place] # (Auto) 1.1 Eos # (Auto) 0.0 Baso # (Auto) 0.0 Abs Immat Gran (auto) 0.07 H Absolute Neuts (auto) 11.1 H Absolute Nucleated RBC 0.030 H Nucleated RBC % (auto) 0.2 PT INR Anion Gap 17 Estim Creat Clear Calc 17.4 Estimated GFR 36 Random Glucose 105 Calcium 8.3 L D Total Bilirubin 0.8 Direct Bilirubin AST 184 H ALT 62 H Alkaline Phosphatase 80 Total Creatine Kinase 3531 H B-Natriuretic Peptide Total Protein 5.8 L Albumin 3.2 L Lipase Urine Color Yellow Urine Appearance Clear Urine pH 5.5 Ur Specific [place] 1.020 Urine Protein 30 (1+) H Urine Glucose (UA) Negative Urine Ketones Trace Urine Blood Small (1+) H Urine Nitrite Negative Ur Leukocyte Esterase Negative Urine RBC 0-2 Urine WBC 0-5 Ur Squamous Epith Cells 0-2 Urine Bacteria None Seen Hyaline Casts 0-2 Influenza Type A (PCR) Influenza Type B (PCR) RSV RNA Qual (PCR) SARS-CoV-2 RNA (RT-PCR) Assessment and Plan (1) Closed fracture of right hip: Status: Acute (2) Fracture of right olecranon process: Status: Acute (3) Fracture of right superior pubic ramus: Status: Acute (4) Fracture of right inferior pubic ramus: Status: Acute (5) Elevated troponin: Status: Acute (6) Rhabdomyolysis: Status: Acute Plan This has a 79-year-old male with pertinent history of alcohol use disorder, gastroesophageal reflux disease, gout who was brought to the emergency department for evaluation after a fall. LETICIA likely due to rhabdo/dehydration follow CPK if renal function trends up will consider nephrology consult Acute mild traumatic rhabdomyolysis: CPK 3643, 3531 continue IVF follow CPK Unwitnessed fall: Likely mechanical. Patient denies syncope or presyncope prior to the fall. Denies chest pain/palpitations prior to the fall. No seizure-like activity. Will monitor on telemetry Acute subcapital right femoral neck fracture/Acute right superior and inferior pubic rami fracture/Acute right clavicular fracture/Acute olecranon fracture due to unwitnessed fall: Seen by ortho - plan for right hip hemiarthorplasty 12/21 ORIF of the right olecranon fracture next week . seen by cardiology - intermediate risk pain control Elevated troponin: Type 2 in the setting of increased demand seen by cardiology intermediate risk for planned procedure echo pending Alcohol use disorder: Monitor CIWA. Initiating thiamine. Patient denies history of alcohol withdrawals Thrombocytopenia ? due to etoh follow CBC chronic normocytic anemia no acute blood loss noted check b12, folate and iron studies follow cbc Gastroesophageal reflux disease: PPI Severe protein calorie malnutrition as evidenced by BMI 14.7, loss of muscle mass and subcutaneous fat full nutrition consult pending DVT prophylaxis: Mechanical until orthopedic surgery evaluation Full code. Discussed with patient at bedside Requires ongoing inpatient stay monitoring of kidney function, electrolytes including CK, evaluation and treatment of multiple acute fractures (as above), which is not possible in a lesser acute setting. Specialist consult pending Quality Stroke Does the patient have a stroke diagnosis?: No VTE Prior VTE?: No VTE Risk Level:: Medical - moderate - high VTE Device Contraindication: N/A - Device Ordered VTE Drug Contraindication: Treatment Not Indicated
[2024-12-20] MEDS: Lactated Ringers 1,000 ML 80 ML IVCONT (14:22)
[2024-12-20 14:48] LABS: Iron 12 mcg/dL (45-160); Percent Iron Saturation 9 % (15-50); Total Iron Binding Capacity 135 mcg/dL (228-428); Unsaturated Iron Binding 123 ug/dL
[2024-12-20 15:01] LABS: Ferritin > 1676 ng/mL (20-250)
--- NOTE | 2024-12-20 17:48 | HO.SKINPHOTO ---
Location: Sacrum Category: Stage: Length: Width: Depth: cm Location: Category: Stage: Length: Width: Depth: cm Location: Category: Stage: Length: Width: Depth: cm Location: Category: Stage: Length: Width: Depth: cm Location: Category: Stage: Length: Width: Depth: cm Location: Category: Stage: Length: Width: Depth: cm
--- NOTE | 2024-12-20 17:51 | HO.SKINPHOTO ---
Location: left lateral knee Category: Stage: Length: Width: Depth: cm Location: Category: Stage: Length: Width: Depth: cm Location: Category: Stage: Length: Width: Depth: cm Location: Category: Stage: Length: Width: Depth: cm Location: Category: Stage: Length: Width: Depth: cm Location: Category: Stage: Length: Width: Depth: cm
[2024-12-20] MEDS: Acetaminophen 325 MG TABLET 650 MG PO (19:34)
[2024-12-21] VITALS (11 sets, daily range): BP systolic 95–156; BP diastolic 68–107; PULSE 88–112; RESP 12–18; TEMP 36.7–38; O2SAT 90–100
[2024-12-21] MEDS: Lactated Ringers 1,000 ML 80 ML IVCONT ×2 (04:17→19:37)
[2024-12-21 06:46] LABS: Hematocrit 23.3 % (42.0-52.0); Hemoglobin 8.1 g/dl (14.0-18.0); Mean Corpuscular HGB Conc 34.8 g/dl (31.0-36.0); Mean Corpuscular Hemoglobin 34.6 pg (27.0-33.0); Mean Corpuscular Volume 99.6 fL (80.0-98.0); Mean Platelet Volume 12.9 fL (9.4-12.4); NRBC Pct Auto 0.3 /100WBC (0.0-0.2); Platelet Count 100 X10*3/uL (160-400); Red Blood Count 2.34 X10*6/uL (4.60-5.80); Red Cell Distribution Width 16.2 % (11.0-16.0); White Blood Count 9.2 X10*3/uL (4.8-10.8)
[2024-12-21 06:54] LABS: Anion Gap 16 (12-20); Blood Urea Nitrogen 47 mg/dL (9-16); Calcium 8.5 mg/dL (8.4-10.2); Carbon Dioxide 23 mmol/L (22-29); Chloride 110 mmol/L (96-108); Creatinine Clr Calc Pharmacy 28.4; Estimated Glomerular Filt Rate 58; Glucose Random 82 mg/dL (60-115); Potassium 4.5 mmol/L (3.3-5.1); Sodium 144 mmol/L (135-145)
[2024-12-21 07:33] LABS: Vitamin B12 > 2000 pg/mL (200-900)
--- NOTE | 2024-12-21 08:47 | HO.ANESPROP2 ---
HPI - Anesthesia Eval Consult details Narrative: Right hip fracture PMFSH Active Problems Active Problems: All Active Problems Fall (Acute) Fracture of right olecranon process (Acute) Fracture of right superior pubic ramus (Acute) Fracture of right inferior pubic ramus (Acute) Elevated troponin (Acute) Closed fracture of right hip (Acute) Rhabdomyolysis (Acute) Comminuted fracture of right humerus (Acute) Chronic GERD (Acute) Physical exam (Acute) Encounter for smoking cessation counseling (Acute) Alcohol use disorder, mild, abuse (Acute) Screening for osteoporosis (Acute) Malnutrition (Acute) Screening for malignant neoplasm of prostate (Acute) Screening for hypercholesterolemia (Acute) Medicare annual wellness visit, initial (Acute) Hypertension (Acute) Gout (Acute) Past Medical History Medical History Screening for hypercholesterolemia Hypertension Gout Hx of essential hypertension Family History Family History Mother Ovarian cancer Father Heart attack Family history of problems with anesthesia: No Surgical History Surgical History No pertinent past surgical history History of Problems with Anesthesia: No Social History Social History Household Members: None Housing: Apartment Do you presently have visiting nurse or other home services: No Alcohol intake: current Alcohol intake frequency: a few times a month Alcohol type: beer and hard liquor Comment: COUNTS CORRECT Patient Tobacco Use Status: Tobacco use Unknown Tobacco use type: Cigarette Cigarettes Per Day: 6 Years Smoked: 55 e-Cigarette/Vaping Use: Never Used Second Hand Smoke Exposure: No service: No Current occupational status: retired Cognitive needs: Yes (cane/walker) Hearing needs: No Vision needs: Yes (glasses) Meds Allergies Allergy/AdvReac Type Severity Reaction Status Date / Time No Known Allergies Allergy Verified 12/19/24 17:52 [No Known Allergies*] Active Medications: Current Medications Acetaminophen (Acetaminophen 325 Mg Tablet) 650 mg PO Q6H PRN PRN Reason: Pain, Mild 1-3,fever,headache Last Admin: 12/20/24 19:34 Dose: 650 mg Calcium Carbonate (Calcium Carbonate 750 Mg Tab.Chew) 750 mg PO Q4H PRN PRN Reason: Heartburn Lactated Ringer's (Lr) 1,000 mls @ 80 mls/hr IVCONT .[id number] [facility] Last Admin: 12/21/24 04:17 Dose: 80 mls/hr Magnesium Hydroxide (Milk Of Magnesia 30 Ml Oral.Susp) 30 ml PO DAILY PRN PRN Reason: Constipation Melatonin (Melatonin 3 Mg Tablet) 6 mg PO BEDTIME PRN PRN Reason: Insomnia Last Admin: 12/19/24 22:39 Dose: 6 mg Omeprazole (Omeprazole 20 Mg Capsule.Dr) 20 mg PO DAILY [facility] Last Admin: 12/21/24 07:38 Dose: Not Given Ondansetron HCl (Ondansetron Hcl 4 Mg/2 Ml Vial) 4 mg IVPUSH Q8H PRN PRN Reason: Nausea and Vomiting Sodium Chloride (0.9 % Sodium Chloride Flush 3 Ml Syringe) 3 ml IVFLUSH QSHIFT [facility] Last Admin: 12/20/24 19:34 Dose: Not Given Thiamine HCl (Thiamine Hcl 100 Mg Tablet) 100 mg PO DAILY [facility] Last Admin: 12/21/24 07:39 Dose: Not Given Tramadol HCl (Tramadol Hcl 50 Mg Tablet) 50 mg PO Q6H PRN PRN Reason: Pain, Severe (Pain Scale 7-10) Last Admin: 12/19/24 22:39 Dose: 50 mg Exam Height,Weight and Vital Signs: Height 5 ft 3 in Weight 40.9 kg Last Vital Signs Temp 98.5 F 12/21/24 08:00 Pulse 94 12/21/24 08:00 Resp 14 12/21/24 08:00 BP 156/74 H 12/21/24 08:00 Pulse Ox 94 12/21/24 08:00 O2 Del Method Nasal Cannula 12/21/24 08:00 O2 Flow Rate 2 12/21/24 08:00 Pertinent Lab Results Pertinent Lab Results: Laboratory Tests 12/19/24 12/19/24 12/19/24 18:25 18:26 20:16 WBC 12.5 H RBC 2.64 L D Hgb 9.2 L D Hct 25.3 L D MCV 95.8 MCH 34.8 H MCHC 36.4 H RDW 15.5 Plt Count 114 L D MPV 11.4 Immature Gran % (Auto) 0.9 H Neut % (Auto) 83.8 H Lymph % (Auto) 7.5 L [place] % (Auto) 7.7 Eos % (Auto) 0.0 Baso % (Auto) 0.1 Lymph # (Auto) 0.9 L [place] # (Auto) 1.0 Eos # (Auto) 0.0 Baso # (Auto) 0.0 Abs Immat Gran (auto) 0.11 H Absolute Neuts (auto) 10.5 H Absolute Nucleated RBC 0.030 H Nucleated RBC % (auto) 0.2 PT 10.6 L INR 0.9 Sodium 144 Potassium 4.8 Chloride 103 Carbon Dioxide 25 Anion Gap 21 H BUN 44 H Creatinine 1.88 H Estim Creat Clear Calc 16.6 Estimated GFR 35 Random Glucose 138 H Calcium 9.0 Iron TIBC % Saturation Unsat Iron Binding Ferritin Total Bilirubin 1.2 H Direct Bilirubin 0.6 H AST 159 H ALT 60 H Alkaline Phosphatase 94 Total Creatine Kinase 3643 H Troponin I High Sens 157.6 H* 196.3 H* B-Natriuretic Peptide 844 H Total Protein 6.5 Albumin 3.6 Lipase 5 L Vitamin B12 Folate Urine Color Urine Appearance Urine pH Ur Specific [place] Urine Protein Urine Glucose (UA) Urine Ketones Urine Blood Urine Nitrite Ur Leukocyte Esterase Urine RBC Urine WBC Ur Squamous Epith Cells Urine Bacteria Hyaline Casts Influenza Type A (PCR) NEGATIVE Influenza Type B (PCR) NEGATIVE RSV RNA Qual (PCR) NEGATIVE SARS-CoV-2 RNA (RT-PCR) NEGATIVE Crossmatch 12/20/24 12/20/24 12/21/24 06:10 07:55 05:54 WBC 13.6 H 9.2 RBC 2.42 L 2.34 L Hgb 8.5 L 8.1 L Hct 23.4 L 23.3 L MCV 96.7 99.6 H MCH 35.1 H 34.6 H MCHC 36.3 H 34.8 RDW 15.9 16.2 H Plt Count 105 L 100 L MPV 11.9 12.9 H Immature Gran % (Auto) 0.5 H Neut % (Auto) 81.8 H Lymph % (Auto) 9.8 L [place] % (Auto) 7.8 Eos % (Auto) 0.0 Baso % (Auto) 0.1 Lymph # (Auto) 1.3 [place] # (Auto) 1.1 Eos # (Auto) 0.0 Baso # (Auto) 0.0 Abs Immat Gran (auto) 0.07 H Absolute Neuts (auto) 11.1 H Absolute Nucleated RBC 0.030 H 0.030 H Nucleated RBC % (auto) 0.2 0.3 H PT INR Sodium 142 144 Potassium 5.1 4.5 Chloride 107 110 H Carbon Dioxide 23 23 Anion Gap 17 16 BUN 49 H 47 H Creatinine 1.80 H 1.20 Estim Creat Clear Calc 17.4 28.4 Estimated GFR 36 58 Random Glucose 105 82 Calcium 8.3 L D 8.5 Iron 12 L TIBC 135 L % Saturation 9 L Unsat Iron Binding 123 Ferritin > 1676 H Total Bilirubin 0.8 Direct Bilirubin AST 184 H ALT 62 H Alkaline Phosphatase 80 Total Creatine Kinase 3531 H 1616 H Troponin I High Sens B-Natriuretic Peptide Total Protein 5.8 L Albumin 3.2 L Lipase Vitamin B12 > 2000 H Folate 14.0 Urine Color Yellow Urine Appearance Clear Urine pH 5.5 Ur Specific [place] 1.020 Urine Protein 30 (1+) H Urine Glucose (UA) Negative Urine Ketones Trace Urine Blood Small (1+) H Urine Nitrite Negative Ur Leukocyte Esterase Negative Urine RBC 0-2 Urine WBC 0-5 Ur Squamous Epith Cells 0-2 Urine Bacteria None Seen Hyaline Casts 0-2 Influenza Type A (PCR) Influenza Type B (PCR) RSV RNA Qual (PCR) SARS-CoV-2 RNA (RT-PCR) Crossmatch 12/21/24 08:12 WBC RBC Hgb Hct MCV MCH MCHC RDW Plt Count MPV Immature Gran % (Auto) Neut % (Auto) Lymph % (Auto) [place] % (Auto) Eos % (Auto) Baso % (Auto) Lymph # (Auto) [place] # (Auto) Eos # (Auto) Baso # (Auto) Abs Immat Gran (auto) Absolute Neuts (auto) Absolute Nucleated RBC Nucleated RBC % (auto) PT INR Sodium Potassium Chloride Carbon Dioxide Anion Gap BUN Creatinine Estim Creat Clear Calc Estimated GFR Random Glucose Calcium Iron TIBC % Saturation Unsat Iron Binding Ferritin Total Bilirubin Direct Bilirubin AST ALT Alkaline Phosphatase Total Creatine Kinase Troponin I High Sens B-Natriuretic Peptide Total Protein Albumin Lipase Vitamin B12 Folate Urine Color Urine Appearance Urine pH Ur Specific [place] Urine Protein Urine Glucose (UA) Urine Ketones Urine Blood Urine Nitrite Ur Leukocyte Esterase Urine RBC Urine WBC Ur Squamous Epith Cells Urine Bacteria Hyaline Casts Influenza Type A (PCR) Influenza Type B (PCR) RSV RNA Qual (PCR) SARS-CoV-2 RNA (RT-PCR) Crossmatch See Detail Airway Mallampati Class: II TM Dist: >3cm Neck ROM: Full Denture: Upper and Lower Loose/Missing/Broken Teeth: No Heart: RRR Lungs: CTAB Assessment and Plan Assessment Anesthesia Assessment: Anesthesia Plan Discussed and Chart Reviewed Final Anesthetic Review Family History of Problems with Anesthesia: No History of Problems with Anesthesia: No NPO: Yes ASA Class: III Final Preanesthetic Review: No Changes in Pt Med Stat, Meds/Allgs Chart Reviewed, Consent Obtained/Reviewed and Anes Risks/Benef Reviewed Patient Risk: High Procedure Risk: Intermediate Anesthetic Plan Anesthetic Plan: GA Disposition: Standard PACU
[2024-12-21] MEDS: ceFAZolin Sodium/Dextrose,Iso 2 GM/50 ML PIGGYBACK IV ×2 (10:05→17:48)
--- NOTE | 2024-12-21 11:03 | P.PNIM_ITS ---
Subjective Subjective Date of Service: 12/21/24 Interval History: seen and examined this morning follow up for fall, multiple fractures, dysphagia, rhabdo awake, alert; not in pain when laying still. no chest pain, no sob Review of Systems Review of Systems: Yes all other systems are reviewed and are negative Constitutional Constitutional: Denies chills and Denies fever(s) Cardiovascular Cardiovascular: Denies chest pain, Denies palpitations and Denies dyspnea Respiratory Respiratory: Denies cough and Denies dyspnea Gastrointestinal Gastrointestinal: Denies abdominal pain, Denies nausea and Denies vomiting Endocrine Endocrine: Denies palpitations Physical Exam 2 Vital Signs: Vital Signs: Last Vital Signs Temp 98.5 F 12/21/24 08:00 Pulse 94 12/21/24 08:00 Resp 14 12/21/24 08:00 BP 156/74 H 12/21/24 08:00 Pulse Ox 94 12/21/24 08:00 O2 Del Method Nasal Cannula 12/21/24 08:00 O2 Flow Rate 2 12/21/24 08:00 BMI result Body Mass Index 16.0 Appearing in no acute distress lung sounds are clear to auscultation heart regular rate rhythm, clear S1, S2 positive bowel sounds, abdomen is soft, nontender neuro patient is alert x3, no focal deficits Objective Data Active Medications Acetaminophen (Acetaminophen 325 Mg Tablet) 650 mg PO Q6H PRN PRN Reason: Pain, Mild 1-3,fever,headache Last Admin: 12/20/24 19:34 Dose: 650 mg Documented By: DARIO Calcium Carbonate (Calcium Carbonate 750 Mg Tab.Chew) 750 mg PO Q4H PRN PRN Reason: Heartburn Lactated Ringer's (Lr) 1,000 mls @ 80 mls/hr IVCONT .[id number] [facility] Last Admin: 12/21/24 04:17 Dose: 80 mls/hr Documented By: DARIO Acetaminophen (Ofirmev) 1,000 mg in 100 mls @ 400 mls/hr IV ONCE PRN PRN Reason: Pain, Mild (Pain Scale 1-3) Stop: 12/21/24 14:57 Magnesium Hydroxide (Milk Of Magnesia 30 Ml Oral.Susp) 30 ml PO DAILY PRN PRN Reason: Constipation Melatonin (Melatonin 3 Mg Tablet) 6 mg PO BEDTIME PRN PRN Reason: Insomnia Last Admin: 12/19/24 22:39 Dose: 6 mg Documented By: LEA Naloxone HCl (Naloxone Hcl 0.4 Mg/Ml Vial) 0.04 mg IVPUSH Q5M PRN PRN Reason: Excessive sedation or RR < 8 Omeprazole (Omeprazole 20 Mg Capsule.Dr) 20 mg PO DAILY [facility] Last Admin: 12/21/24 07:38 Dose: Not Given Documented By: MISA Non-Admin Reason: NPO Ondansetron HCl (Ondansetron Hcl 4 Mg/2 Ml Vial) 4 mg IVPUSH Q8H PRN PRN Reason: Nausea and Vomiting Ondansetron HCl (Ondansetron Hcl 4 Mg/2 Ml Vial) 4 mg IVPUSH ONCE PRN PRN Reason: Nausea and Vomiting Stop: 12/21/24 14:57 Sodium Chloride (0.9 % Sodium Chloride Flush 3 Ml Syringe) 3 ml IVFLUSH QSHIFT [facility] Last Admin: 12/20/24 19:34 Dose: Not Given Documented By: DARIO Non-Admin Reason: IV Running Thiamine HCl (Thiamine Hcl 100 Mg Tablet) 100 mg PO DAILY [facility] Last Admin: 12/21/24 07:39 Dose: Not Given Documented By: MISA Non-Admin Reason: NPO Tramadol HCl (Tramadol Hcl 50 Mg Tablet) 50 mg PO Q6H PRN PRN Reason: Pain, Severe (Pain Scale 7-10) Last Admin: 12/19/24 22:39 Dose: 50 mg Documented By: LEA Labs 12/21/24 05:54 12/21/24 05:54 Labs: Laboratory Results - last 24 hr 12/20/24 12/21/24 12/21/24 06:10 05:54 08:12 MCV 99.6 H MCH 34.6 H MCHC 34.8 RDW 16.2 H Plt Count 100 L MPV 12.9 H Absolute Nucleated RBC 0.030 H Nucleated RBC % (auto) 0.3 H Anion Gap 16 Estim Creat Clear Calc 28.4 Estimated GFR 58 Random Glucose 82 Calcium 8.5 Iron 12 L TIBC 135 L % Saturation 9 L Unsat Iron Binding 123 Ferritin > 1676 H Total Creatine Kinase 1616 H Vitamin B12 > 2000 H Folate 14.0 Blood Type O Positive Antibody Screen NEGATIVE Crossmatch See Detail Assessment and Plan (1) Closed fracture of right hip: Status: Acute (2) Fracture of right olecranon process: Status: Acute (3) Fracture of right superior pubic ramus: Status: Acute (4) Fracture of right inferior pubic ramus: Status: Acute (5) Elevated troponin: Status: Acute (6) Rhabdomyolysis: Status: Acute Plan 79-year-old male with pertinent history of alcohol use disorder, gastroesophageal reflux disease, gout who was brought to the emergency department for evaluation after a fall. Acute subcapital right femoral neck fracture/Acute right superior and inferior pubic rami fracture/Acute right clavicular fracture/Acute olecranon fracture due to unwitnessed fall Seen by ortho - plan for right hip hemiarthorplasty today ORIF of the right olecranon fracture next week . seen by cardiology - intermediate risk pain control LETICIA. Resolved likely due to rhabdo/dehydration follow CPK if renal function trends up will consider nephrology consult Acute mild traumatic rhabdomyolysis CPK 3643, 3531,1616 continue IVF follow CPK Unwitnessed fall Likely mechanical. Patient denies syncope or presyncope prior to the fall. Denies chest pain/palpitations prior to the fall. No seizure-like activity. Elevated troponin Type 2 in the setting of increased demand seen by cardiology intermediate risk for planned procedure echo pending Alcohol use disorder Monitor MAGEN. thiamine. Patient denies history of alcohol withdrawals Thrombocytopenia ? due to etoh follow CBC Chronic iron def anemia no acute blood loss noted check b12 >2000, folate >1676 and iron12 Iron supplementation after surgery Gastroesophageal reflux disease PPI Severe protein calorie malnutrition as evidenced by BMI 14.7, loss of muscle mass and subcutaneous fat full nutrition consult pending DVT prophylaxis: Mechanical Full code. Discussed with patient at bedside Quality Stroke Does the patient have a stroke diagnosis?: No VTE Prior VTE?: No VTE Risk Level:: Medical - moderate - high VTE Device Contraindication: N/A - Device Ordered VTE Drug Contraindication: Treatment Not Indicated
--- NOTE | 2024-12-21 12:00 | PM.OP ---
Brief Operative Note Date of Service: 12/21/24 Pre-op diagnosis: Right hip femoral neck fracture Post-op diagnosis: same Procedure: Right hip cemented bipolar hemiarthroplasty Implants: [place] bipolar cemented hemiarthroplasty with an Accolade C femoral stem size 4 with a 127 degree neck-shaft angle, bipolar shell size 48, femoral head size 26 with a -3mm neck, distal centralizer size 12, small cement plug Surgeon: Dimitris Alejandro MD Anesthesia: GETA Was an Assistant Corporation Counsel used for this Procedure?: No Assistant Corporation Counsel: Bridger Day Estimated blood loss (mL): 150 Pathology: other (Right femoral head) Condition: stable Disposition: PACU
--- NOTE | 2024-12-21 12:05 | P.OP_ITS ---
Operative Note Operative Note Date of Service: 12/21/24 Narrative: After the patient was identified as Rikki Razo and his right hip was initialed by myself the patient was brought to the operating room where general anesthesia was induced by the anesthesiologist in routine fashion. The patient was given 2 g of IV Ancef for infection prophylaxis. The patient was then gently rolled into the lateral position. An axillary roll was put into place. All bony prominences were well padded. The patient's pelvis was held securely with hip bolsters. The patient's right hip region and lower extremity were prepped and draped in sterile fashion. A #10 scalpel blade was then used to leni e a curvilinear incision centered over the greater trochanter. The subcutaneous tissues were dissected using electrocautery down to the fascia alena. The fascia alena was then split in line with the skin incision using electrocautery. The split in the fascia alena was curved posteriorly along its cephalad aspect to help prevent injury to the innervation of the tensor fascia alena muscle. The patient's leg was gently externally rotated. A lateral Hartman approach was then taken down to the anterior joint capsule. The anterior half of the vastus lateralis was split 1 cm from its insertion and tagged with #2 Ethibond suture. The anterior 1/3 of the gluteus medius incision was then split using electrocautery and tagged with #2 Ethibond suture. An anterior capsulectomy was then performed using electrocautery. The femoral neck fracture was identified. The patient's lower extremity was gently externally rotated. The femoral neck cut was made 1 cm proximal to the lesser trochanter. The femoral head was then removed using a corkscrew. The femoral head measured to be a size 48. The trial size 48 femoral head was put into the acetabulum. The trial fit well. The trial was removed. The acetabulum was irrigated with copious amounts of normal saline solution via pulse lavage. The patient's leg was then placed into a sterile pouch along the anterior aspect of the surgical suite table. Soft tissues were retracted around the proximal femur. A box cutting osteotome was used to make a groove in the medial aspect of the greater trochanter. Broaching was begun with a size 0 press-fit broach. Broaching was increased up to a size 4 cemented broach. The 4 broach fit well. The broach was removed. The distal centralizer was measured to be a size 12. A small cement plug was put into place. The intramedullary canal was irrigated with copious amounts of normal saline solution via pulse lavage while the cement was mixed. Once the cement reached a doughy state it was pressurized into the intramedullary canal. The final implant was put into place. Once the cement had hardened a trial size 48 shell with a -3 mm neck was put into place. The hip was reduced. Leg lengths were clinically equal. The hip was taken through a full range of motion. There was no instability. The hip was dislocated and the patient's leg was placed into the sterile pouch. The trial head was removed. The wound was irrigated with copious amounts of normal saline solution via pulse lavage. The final head and shell were impacted in the place. Leg lengths were clinically equal. Hip was taken through a full range of motion. There was no instability. The patient's leg was then placed onto a well-padded Mccollum stand. The wound was once again irrigated. The vastus lateralis and tensor fascia alena tendons were repaired with #2 Ethibond [id number] interrupted suture. The wound was once again irrigated. The fascia alena was closed with #2 Ethibond [id number] interrupted suture as well as #1 Vicryl [id number] interrupted suture. The wound was once again irrigated. The subcutaneous tissues were closed with 0 Vicryl and 2-0 Vicryl interrupted suture. The skin was closed with skin lashae. Dry sterile dressing was placed over the incision. The patient was gently rolled into the supine position. The patient was awoken and extubated in the operating room. The patient was transferred to the recovery room in stable condition.
--- NOTE | 2024-12-21 14:33 | MHC.CM.PN ---
Addendum entered by Lucretia Schaefer 12/21/24 15:29: This CM met with pt, he was awake and able to engage in conversation, pt states he lives alone at home, he has friends that visit him and help him every day along with his nephew. Pt states his nephew will transport him home at discharge. Pt uses a cane, and a walker. Education provided on HCP, pt declines at this time. Pt states his PCP retired, he has an upcoming new PCP appointment, but doesn't know their name. Original Note: This CM attempted to meet with pt, he was not in his room as he was in the OR for a right hip hemiarthorplasty. CM attempted to meet with pt once he was back on the unit, pt sleeping, not able to engage in conversation, will attempt to meet with him at a later time.
[2024-12-21] MEDS: Acetaminophen 325 MG TABLET 650 MG PO (15:42)
[2024-12-21] MEDS: Aspirin 325 MG TABLET PO (19:33)
[2024-12-21] MEDS: traMADoL HCL 50 MG TABLET PO (19:33)
[2024-12-22] VITALS: BP 138/76; PULSE 93; RESP 18; TEMP 37.1; O2SAT 91
[2024-12-22] MEDS: 0.9 % Sodium Chloride Flush 3 ML SYRINGE IVFLUSH ×3 (02:50→08:28)
[2024-12-22] MEDS: ceFAZolin Sodium/Dextrose,Iso 2 GM/50 ML PIGGYBACK IV ×2 (02:50→10:00)
[2024-12-22 03:34] VITALS: BP 157/67; PULSE 81; RESP 18; TEMP 36.8; O2SAT 91
[2024-12-22] MEDS: Lactated Ringers 1,000 ML 80 ML IVCONT (06:17)
[2024-12-22 07:48] VITALS: BP 147/78; PULSE 89; RESP 16; TEMP 36.7; O2SAT 93
[2024-12-22 07:53] LABS: Hematocrit 24.3 % (42.0-52.0); Hemoglobin 8.6 g/dl (14.0-18.0); Mean Corpuscular HGB Conc 35.4 g/dl (31.0-36.0); Mean Corpuscular Hemoglobin 33.9 pg (27.0-33.0); Mean Corpuscular Volume 95.7 fL (80.0-98.0); Red Blood Count 2.54 X10*6/uL (4.60-5.80); Red Cell Distribution Width 18.1 % (11.0-16.0)
[2024-12-22 07:55] LABS: NRBC Pct Auto 1.3 /100WBC (0.0-0.2); Platelet Count 99 X10*3/uL (160-400); WBC ABN SCTR FOR CBC 1; White Blood Count 9.8 X10*3/uL (4.8-10.8)
[2024-12-22 08:04] LABS: Anion Gap 16 (12-20); Blood Urea Nitrogen 35 mg/dL (9-16); Carbon Dioxide 22 mmol/L (22-29); Chloride 110 mmol/L (96-108); Creatinine Clr Calc Pharmacy 34.7; Estimated Glomerular Filt Rate > 60; Glucose Fasting 85 mg/dL (60-99); Potassium 4.5 mmol/L (3.3-5.1); Sodium 143 mmol/L (135-145)
[2024-12-22 08:07] LABS: Band Neutrophils Percent 5 % (3-5); Lymphocytes Absolute Manual 1.1 X10*3/uL (1.2-4.9); Lymphocytes Percent Manual 11 % (20-40); Monocytes Absolute Manual 0.7 X10*3/uL (0.1-1.2); Monocytes Percent Manual 7 % (2-11); Neutrophils Percent Manual 77 % (45-73); Nucleated Red Blood Cells 1 /100WBC (0-0)
[2024-12-22 08:08] LABS: Large Platelet PRESENT; Macrocytosis 1+ (5-14) /OIF; Platelet Estimate SLIGHTLY DECREASED (NORMAL); Platelet Morphology Comment NOTED; RBC Morphology NOTED
[2024-12-22 08:09] LABS: Ovalocytes 1+ (5-14) /OIF; Target Cells 1+ (5-14) /OIF; Toxic Vacuolation PRESENT
[2024-12-22] MEDS: Aspirin 325 MG TABLET PO (08:30)
[2024-12-22] MEDS: Omeprazole 20 MG CAPSULE.DR PO (08:30)
[2024-12-22] MEDS: Thiamine HCL 100 MG TABLET PO (08:30)
[2024-12-22] MEDS: traMADoL HCL 50 MG TABLET PO ×2 (08:33→18:00)
--- NOTE | 2024-12-22 09:31 | HO.PM.IMPN ---
Subjective Subjective Date of Service: 12/22/24 Interval History: seen and examined this morning follow up for fall, multiple fractures, dysphagia, rhabdo awake, alert; not in pain when laying still. no chest pain, no sob Review of Systems Review of Systems: Yes all other systems are reviewed and are negative Constitutional Constitutional: Denies chills and Denies fever(s) Cardiovascular Cardiovascular: Denies chest pain, Denies palpitations and Denies dyspnea Respiratory Respiratory: Denies cough and Denies dyspnea Gastrointestinal Gastrointestinal: Denies abdominal pain, Denies nausea and Denies vomiting Endocrine Endocrine: Denies palpitations Physical Exam Vital Signs: Vital Signs: Last Vital Signs Temp 98.1 F 12/22/24 07:48 Pulse 89 12/22/24 07:48 Resp 16 12/22/24 07:48 BP 147/78 H 12/22/24 07:48 Pulse Ox 93 12/22/24 07:48 O2 Del Method Nasal Cannula 12/22/24 07:48 O2 Flow Rate 3.5 12/22/24 07:48 BMI result Body Mass Index 16.0 Appearing in no acute distress lung sounds are clear to auscultation heart regular rate rhythm, clear S1, S2 positive bowel sounds, abdomen is soft, nontender neuro patient is alert x3, no focal deficits Surgical incision not visualized, dressing intact Objective Data Active Medications Acetaminophen (Acetaminophen 325 Mg Tablet) 650 mg PO Q6H PRN PRN Reason: Pain, Mild 1-3,fever,headache Last Admin: 12/21/24 15:42 Dose: 650 mg Documented By: MISA Aspirin (Aspirin 325 Mg Tablet) 325 mg PO BID [facility] Last Admin: 12/22/24 08:30 Dose: 325 mg Documented By: MERLE Calcium Carbonate (Calcium Carbonate 750 Mg Tab.Chew) 750 mg PO Q4H PRN PRN Reason: Heartburn Lactated Ringer's (Lr) 1,000 mls @ 80 mls/hr IVCONT .[id number] [facility] Last Admin: 12/22/24 06:17 Dose: 80 mls/hr Documented By: SANJUANITA Cefazolin Sodium/Dextrose (Ancef) 2 gm in 50 mls @ 100 mls/hr IV Q8H [facility] Stop: 12/22/24 17:59 Last Infusion: 12/22/24 03:25 Dose: Infused Documented By: SANJUANITA Magnesium Hydroxide (Milk Of Magnesia 30 Ml Oral.Susp) 30 ml PO DAILY PRN PRN Reason: Constipation Melatonin (Melatonin 3 Mg Tablet) 6 mg PO BEDTIME PRN PRN Reason: Insomnia Last Admin: 12/19/24 22:39 Dose: 6 mg Documented By: LEA Omeprazole (Omeprazole 20 Mg Capsule.Dr) 20 mg PO DAILY [facility] Last Admin: 12/22/24 08:30 Dose: 20 mg Documented By: MERLE Ondansetron HCl (Ondansetron Hcl 4 Mg/2 Ml Vial) 4 mg IVPUSH Q8H PRN PRN Reason: Nausea and Vomiting Sodium Chloride (0.9 % Sodium Chloride Flush 3 Ml Syringe) 3 ml IVFLUSH [facility] Last Admin: 12/22/24 08:28 Dose: 3 ml Documented By: MERLE Sodium Chloride (0.9 % Sodium Chloride Flush 3 Ml Syringe) 3 ml IVFLUSH [facility] Last Admin: 12/22/24 08:55 Dose: Not Given Documented By: MERLE Non-Admin Reason: IV Running Thiamine HCl (Thiamine Hcl 100 Mg Tablet) 100 mg PO DAILY [facility] Last Admin: 12/22/24 08:30 Dose: 100 mg Documented By: MERLE Tramadol HCl (Tramadol Hcl 50 Mg Tablet) 50 mg PO Q6H PRN PRN Reason: Pain, Severe (Pain Scale 7-10) Last Admin: 12/22/24 08:33 Dose: 50 mg Documented By: MERLE Labs 12/22/24 06:15 12/22/24 06:15 Labs: Laboratory Results - last 24 hr 12/21/24 12/22/24 08:12 06:15 MCV 95.7 MCH 33.9 H MCHC 35.4 RDW 18.1 H Plt Count 99 L MPV 13.0 H Immature Gran % (Auto) Cancelled Neut % (Auto) Cancelled Lymph % (Auto) Cancelled [place] % (Auto) Cancelled Eos % (Auto) Cancelled Baso % (Auto) Cancelled Lymph # (Auto) Cancelled [place] # (Auto) Cancelled Eos # (Auto) Cancelled Baso # (Auto) Cancelled Abs Immat Gran (auto) Cancelled Absolute Neuts (auto) Cancelled Absolute Nucleated RBC 0.130 H Nucleated RBC % (auto) 1.3 H Neutrophils % (Manual) 77 H Band Neutrophils % 5 Lymphocytes % (Manual) 11 L Monocytes % (Manual) 7 Abs Neuts (Manual) 8.0 Lymphocytes # (Manual) 1.1 L Monocytes # (Manual) 0.7 Nucleated RBCs 1 H Toxic Vacuolation PRESENT Platelet Estimate SLIGHTLY DECREASED Large Platelets PRESENT Plt Morphology Comment NOTED RBC Morphology NOTED Macrocytosis 1+ (5-14) Target Cells 1+ (5-14) Ovalocytes 1+ (5-14) Anion Gap 16 Estim Creat Clear Calc 34.7 Estimated GFR > 60 Fasting Glucose 85 Calcium 8.0 L Blood Type O Positive Antibody Screen NEGATIVE Crossmatch See Detail Assessment and Plan (1) Closed fracture of right hip: Status: Acute (2) Fracture of right olecranon process: Status: Acute (3) Fracture of right superior pubic ramus: Status: Acute (4) Fracture of right inferior pubic ramus: Status: Acute (5) Elevated troponin: Status: Acute (6) Rhabdomyolysis: Status: Acute Plan 79-year-old male with pertinent history of alcohol use disorder, gastroesophageal reflux disease, gout who was brought to the emergency department for evaluation after a fall. Acute subcapital right femoral neck fracture/Acute right superior and inferior pubic rami fracture/Acute right clavicular fracture/Acute olecranon fracture due to unwitnessed fall ORIF of the right olecranon fracture next week . seen by cardiology - intermediate risk pain control s/p right hip hemiarthorplasty today 12/21/24 PT LEITCIA. Resolved likely due to rhabdo/dehydration follow CPK if renal function trends up will consider nephrology consult Acute mild traumatic rhabdomyolysis CPK 3643, 3531,1616 continue IVF follow CPK Unwitnessed fall Likely mechanical. Patient denies syncope or presyncope prior to the fall. Denies chest pain/palpitations prior to the fall. No seizure-like activity. Elevated troponin Type 2 in the setting of increased demand seen by cardiology intermediate risk for planned procedure echo pending Alcohol use disorder Monitor MAGEN. thiamine. Patient denies history of alcohol withdrawals Thrombocytopenia ? due to etoh follow CBC Chronic iron def anemia no acute blood loss noted check b12 >2000, folate >1676 and iron12 Iron supplementation after surgery Gastroesophageal reflux disease PPI Severe protein calorie malnutrition as evidenced by BMI 16.0, loss of muscle mass and subcutaneous fat full nutrition consult pending DVT prophylaxis: Mechanical Full code. Discussed with patient at bedside Quality Stroke Does the patient have a stroke diagnosis?: No VTE Prior VTE?: No VTE Risk Level:: Medical - moderate - high VTE Device Contraindication: N/A - Device Ordered VTE Drug Contraindication: Treatment Not Indicated
--- NOTE | 2024-12-22 10:22 | PM.PNORT ---
Subjective Subjective Date of Service: 12/22/24 Interval history: Postop day 1 status post right hip hemiarthroplasty Patient resting comfortably in bed this morning Reports most of his pain is in his right elbow No acute events overnight No other acute complaints or concerns at this time Physical Exam Vital Signs: Vital Signs: Last Vital Signs Temp 98.1 F 12/22/24 07:48 Pulse 89 12/22/24 07:48 Resp 16 12/22/24 07:48 BP 147/78 H 12/22/24 07:48 Pulse Ox 93 12/22/24 07:48 O2 Del Method Nasal Cannula 12/22/24 07:48 O2 Flow Rate 3.5 12/22/24 07:48 BMI result Body Mass Index 16.0 Extrem: Other: Dressing on right hip clean, dry, intact No evidence of surrounding erythema, ecchymosis No evidence of infection Patient is able to flex and extend the digits of the left foot without difficulty Compartments soft, nontender Distal sensation intact Capillary refill brisk Patient's right elbow noted to be swollen and ecchymotic to inspection Tenderness to extremely gentle palpation of the right elbow Sling in place, but not in proper alignment Procedures Date of Service Date of Service: 12/22/24 Progress Note: A&P Assessment and plan (1) Fracture of right olecranon process: Status: Acute (2) Fracture of right superior pubic ramus: Status: Acute (3) Fracture of right inferior pubic ramus: Status: Acute (4) Closed fracture of right hip: Status: Acute (5) Fall: Status: Acute Plan Continue pain management Continue aspirin for DVT prophylaxis Toe-touch weight-bearing right lower extremity Sling to remain in place on right elbow at all times Encourage elevation of right elbow on pillow while in bed Patient to be re-evaluated this week with Dr. Mendez for olecranon fracture Continue with all other recommendations per Medicine Time Spent With Patient Time: Total time managing care of this patient today ____ minutes. Quality Stroke Does the patient have a stroke diagnosis?: No VTE Prior VTE?: No VTE Risk Level:: Medical - moderate - high VTE Device Contraindication: N/A - Device Ordered VTE Drug Contraindication: Treatment Not Indicated
[2024-12-22 12:00] VITALS: BP 161/77; PULSE 90; RESP 16; TEMP 37.1; O2SAT 88
--- NOTE | 2024-12-22 13:52 | HO.POSTANES ---
Post Anesthesia Evaluation Post Anesthesia Evaluation Date of Service: 12/22/24 Vital Signs: Vital Signs Temp Pulse Resp BP Pulse Ox O2 Del Method O2 Flow Rate 12/22/24 12:00 98.7 F 90 16 161/77 H 88 L Nasal Cannula 4 12/22/24 07:48 98.1 F 89 16 147/78 H 93 Nasal Cannula 3.5 12/22/24 03:34 98.2 F 81 18 157/67 H 91 L Nasal Cannula 3 Anesthesia: General Endotracheal-GETA Mental Status: Awake Pain Control: Satisfactory Nausea/Vomiting: None Hydration: Adequate Anesthesia-Related Issues: No Anes. Related Issues
[2024-12-22 15:25] VITALS: BP 150/72; PULSE 96; RESP 14; TEMP 37.1; O2SAT 93
[2024-12-22 19:56] VITALS: BP 164/73; PULSE 98; RESP 16; TEMP 36.7; O2SAT 89
[2024-12-23] VITALS (8 sets, daily range): BP systolic 130–183; BP diastolic 74–88; PULSE 88–97; RESP 18–20; TEMP 36.7–37.7; O2SAT 93–94; BMI 16.0
--- NOTE | 2024-12-23 00:12 | PC.NURSE ---
Pt requiring increased oxygen demand, previously requiring 10L oxymask, now sating 92% on 6L oxymask. Provider Trudy aware and ordered STAT CTA. Pt adamantly refusing 20g IV placement and CTA despite education from this RN, RT Ramos, and nursing sorority supervisor Bren at bedside. Pt increasingly agitated and removing oxymask. MD Yates made aware.
--- NOTE | 2024-12-23 01:14 | PM.EVENT ---
Event Note Date of Service: 12/23/24 Event Note: Hypoxia: pt became hypoxic- on oxymask. No wheezing will get BNP, CT PE. lasix 20mg. Hypoxia: no PE PNA: ceftriaxone Plus Doxy New CHF: lasix x1; Echo; Cardiology consult Time Spent With Patient Time: Total time managing care of this patient today ____ minutes.
[2024-12-23] MEDS: Furosemide 20 MG/2 ML VIAL IVPUSH ×3 (01:30→16:54)
[2024-12-23] MEDS: 0.9 % Sodium Chloride Flush 3 ML SYRINGE IVFLUSH ×4 (01:30→20:37)
[2024-12-23] MEDS: Morphine Sulfate 2 MG/ML CARTRIDGE 1 MG IVPUSH (01:31)
[2024-12-23] MEDS: iohexoL 350 MG/ML 100 ML INFUS..BTL 65 ML IV (02:31)
[2024-12-23] MEDS: cefTRIAXone sodium 1 GM VIAL IVPUSH (05:05)
[2024-12-23] MEDS: Doxycycline Hyclate 100 MG in 0.9 % Sodium Chloride 250 ML 166.67 MG IV ×2 (05:05→16:54)
[2024-12-23 06:19] LABS: Hematocrit 26.4 % (42.0-52.0); Hemoglobin 8.9 g/dl (14.0-18.0); Mean Corpuscular HGB Conc 33.7 g/dl (31.0-36.0); Mean Corpuscular Hemoglobin 32.6 pg (27.0-33.0); Mean Corpuscular Volume 96.7 fL (80.0-98.0); Mean Platelet Volume 11.9 fL (9.4-12.4); NRBC Pct Auto 0.7 /100WBC (0.0-0.2); Platelet Count 141 X10*3/uL (160-400); Red Blood Count 2.73 X10*6/uL (4.60-5.80); Red Cell Distribution Width 17.6 % (11.0-16.0); White Blood Count 12.4 X10*3/uL (4.8-10.8)
[2024-12-23 06:32] LABS: Anion Gap 14 (12-20); Blood Urea Nitrogen 32 mg/dL (9-16); Calcium 8.3 mg/dL (8.4-10.2); Carbon Dioxide 22 mmol/L (22-29); Chloride 109 mmol/L (96-108); Creatinine Clr Calc Pharmacy 40.5; Estimated Glomerular Filt Rate > 60; Glucose Fasting 101 mg/dL (60-99); Potassium 3.8 mmol/L (3.3-5.1); Sodium 141 mmol/L (135-145)
[2024-12-23 06:38] LABS: B Type Natriuretic Peptide 2630 pg/mL (<100)
[2024-12-23 07:10] LABS: Band Neutrophils Percent 11 % (3-5); Lymphocytes Absolute Manual 0.9 X10*3/uL (1.2-4.9); Lymphocytes Percent Manual 7 % (20-40); Monocytes Absolute Manual 0.6 X10*3/uL (0.1-1.2); Monocytes Percent Manual 5 % (2-11); Neutrophils Absolute Manual 10.9 X10*3/uL (2.0-8.3); Neutrophils Percent Manual 77 % (45-73); Nucleated Red Blood Cells 1 /100WBC (0-0)
[2024-12-23 07:11] LABS: Burr Cells 1+ (0-2) /OIF; Macrocytosis 1+ (5-14) /OIF; Ovalocytes 1+ (5-14) /OIF; Platelet Estimate SLIGHTLY DECREASED (NORMAL); Platelet Morphology Comment NORMAL; Polychromasia 1+ (0-2) /OIF; RBC Morphology NOTED; Target Cells 1+ (5-14) /OIF; Toxic Vacuolation PRESENT
[2024-12-23] MEDS: Aspirin 325 MG TABLET PO ×2 (09:43→20:28)
[2024-12-23] MEDS: Thiamine HCL 100 MG TABLET PO (09:45)
[2024-12-23] MEDS: Omeprazole 20 MG CAPSULE.DR PO (09:45)
--- NOTE | 2024-12-23 09:45 | P.PNIM_ITS ---
Subjective Subjective Date of Service: 12/23/24 Interval History: follow up for fall, multiple fractures, dysphagia, rhabdo Now with pneumonia and likely heart failure OxyMask on Review of Systems Review of Systems: Yes all other systems are reviewed and are negative Constitutional Constitutional: Denies chills and Denies fever(s) Cardiovascular Cardiovascular: Denies chest pain, Denies palpitations and Denies dyspnea Respiratory Respiratory: Denies cough and Denies dyspnea Gastrointestinal Gastrointestinal: Denies abdominal pain, Denies nausea and Denies vomiting Endocrine Endocrine: Denies palpitations Physical Exam 2 Vital Signs: Vital Signs: Last Vital Signs Temp 99.6 F 12/23/24 08:00 Pulse 92 12/23/24 08:00 Resp 20 12/23/24 08:00 BP 154/81 H 12/23/24 08:00 Pulse Ox 93 12/23/24 08:00 O2 Del Method Oxymask 12/23/24 08:00 O2 Flow Rate 6 12/23/24 08:00 BMI result Body Mass Index 16.0 Appearing in no acute distress lung sounds are clear to auscultation heart regular rate rhythm, clear S1, S2 positive bowel sounds, abdomen is soft, nontender neuro patient is alert x3, no focal deficits Hip dressing intact, surgical incision not visualized Objective Data Active Medications Acetaminophen (Acetaminophen 325 Mg Tablet) 650 mg PO Q6H PRN PRN Reason: Pain, Mild 1-3,fever,headache Last Admin: 12/21/24 15:42 Dose: 650 mg Documented By: MISA Aspirin (Aspirin 325 Mg Tablet) 325 mg PO BID [facility] Last Admin: 12/22/24 21:54 Dose: Not Given Documented By: ONEIL Non-Admin Reason: Patient Refused Calcium Carbonate (Calcium Carbonate 750 Mg Tab.Chew) 750 mg PO Q4H PRN PRN Reason: Heartburn Ceftriaxone Sodium (Ceftriaxone Sodium 1 Gm Vial) 1 gm IVPUSH Q24H [facility] Last Admin: 12/23/24 05:05 Dose: 1 gm Documented By: ONEIL Doxycycline Hyclate 100 mg/ (Sodium Chloride) 250 mls @ 166.67 mls/hr IV Q12H [facility] Last Infusion: 12/23/24 06:42 Dose: Infused Documented By: ONEIL Magnesium Hydroxide (Milk Of Magnesia 30 Ml Oral.Susp) 30 ml PO DAILY PRN PRN Reason: Constipation Melatonin (Melatonin 3 Mg Tablet) 6 mg PO BEDTIME PRN PRN Reason: Insomnia Last Admin: 12/19/24 22:39 Dose: 6 mg Documented By: LEA Omeprazole (Omeprazole 20 Mg Capsule.Dr) 20 mg PO DAILY [facility] Last Admin: 12/22/24 08:30 Dose: 20 mg Documented By: MERLE Ondansetron HCl (Ondansetron Hcl 4 Mg/2 Ml Vial) 4 mg IVPUSH Q8H PRN PRN Reason: Nausea and Vomiting Sodium Chloride (0.9 % Sodium Chloride Flush 3 Ml Syringe) 3 ml IVFLUSH [facility] Last Admin: 12/23/24 01:32 Dose: Not Given Documented By: ONEIL Non-Admin Reason: Previously Administered Sodium Chloride (0.9 % Sodium Chloride Flush 3 Ml Syringe) 3 ml IVFLUSH [facility] Last Admin: 12/23/24 01:30 Dose: 3 ml Documented By: ONEIL Thiamine HCl (Thiamine Hcl 100 Mg Tablet) 100 mg PO DAILY [facility] Last Admin: 12/22/24 08:30 Dose: 100 mg Documented By: MERLE Tramadol HCl (Tramadol Hcl 50 Mg Tablet) 50 mg PO Q6H PRN PRN Reason: Pain, Severe (Pain Scale 7-10) Last Admin: 12/22/24 18:00 Dose: 50 mg Documented By: MERLE Labs 12/23/24 06:05 12/23/24 06:05 Labs: Laboratory Results - last 24 hr 12/23/24 06:05 MCV 96.7 MCH 32.6 MCHC 33.7 RDW 17.6 H Plt Count 141 L D MPV 11.9 Immature Gran % (Auto) Cancelled Neut % (Auto) Cancelled Lymph % (Auto) Cancelled [place] % (Auto) Cancelled Eos % (Auto) Cancelled Baso % (Auto) Cancelled Lymph # (Auto) Cancelled [place] # (Auto) Cancelled Eos # (Auto) Cancelled Baso # (Auto) Cancelled Abs Immat Gran (auto) Cancelled Absolute Neuts (auto) Cancelled Absolute Nucleated RBC 0.090 H Nucleated RBC % (auto) 0.7 H Neutrophils % (Manual) 77 H Band Neutrophils % 11 H Lymphocytes % (Manual) 7 L Monocytes % (Manual) 5 Abs Neuts (Manual) 10.9 H Lymphocytes # (Manual) 0.9 L Monocytes # (Manual) 0.6 Nucleated RBCs 1 H Toxic Vacuolation PRESENT Platelet Estimate SLIGHTLY DECREASED Plt Morphology Comment NORMAL RBC Morphology NOTED Polychromasia 1+ (0-2) Macrocytosis 1+ (5-14) Target Cells 1+ (5-14) Ovalocytes 1+ (5-14) [place] Cells 1+ (0-2) Anion Gap 14 Estim Creat Clear Calc 40.5 Estimated GFR > 60 Fasting Glucose 101 H Calcium 8.3 L B-Natriuretic Peptide 2630 H Assessment and Plan (1) Closed fracture of right hip: Status: Acute (2) Fracture of right olecranon process: Status: Acute (3) Fracture of right superior pubic ramus: Status: Acute (4) Fracture of right inferior pubic ramus: Status: Acute (5) Elevated troponin: Status: Acute (6) Rhabdomyolysis: Status: Acute Plan 79-year-old male with pertinent history of alcohol use disorder, gastroesophageal reflux disease, gout who was brought to the emergency department for evaluation after a fall. Acute hypoxic respiratory failure secondary to acute HFpEF and Pneumonia Elevated BNP 2630 Echocardiogram on 12/20/2024 showing EF of 50-55% with basal inferior lateral hypokinesis and no obvious valvular pathology Lasix 20 mg IV BID Cardiology consultation continue oxymask to keep o2 >90% continue Rocephin and Doxycycline Acute subcapital right femoral neck fracture/Acute right superior and inferior pubic rami fracture/Acute right clavicular fracture/Acute olecranon fracture due to unwitnessed fall ORIF of the right olecranon fracture next week . seen by cardiology - intermediate risk pain control s/p right hip hemiarthorplasty today 12/21/24 PT LETICIA. Resolved likely due to rhabdo/dehydration follow CPK if renal function trends up will consider nephrology consult Acute mild traumatic rhabdomyolysis CPK 3643, 3531,1616 s/p IVF follow CPK Unwitnessed fall Likely mechanical. Patient denies syncope or presyncope prior to the fall. Denies chest pain/palpitations prior to the fall. No seizure-like activity. Elevated troponin Type 2 in the setting of increased demand seen by cardiology intermediate risk for planned procedure echo pending Alcohol use disorder Monitor CIWA. thiamine. Patient denies history of alcohol withdrawals Thrombocytopenia ? due to etoh follow CBC Chronic iron def anemia no acute blood loss noted check b12 >2000, folate >1676 and iron12 Iron supplementation after surgery Gastroesophageal reflux disease PPI Severe protein calorie malnutrition as evidenced by BMI 16.0, loss of muscle mass and subcutaneous fat nutrition following DVT prophylaxis: Mechanical Full code. Discussed with patient at bedside Quality Stroke Does the patient have a stroke diagnosis?: No VTE Prior VTE?: No VTE Risk Level:: Medical - moderate - high VTE Device Contraindication: N/A - Device Ordered VTE Drug Contraindication: Treatment Not Indicated
--- NOTE | 2024-12-23 10:33 | PM.PNORT ---
Subjective Subjective Date of Service: 12/23/24 Interval history: Postop day 2 status post right hip hemiarthroplasty Patient resting comfortably in bed this morning Reports most of his pain is in his right elbow No acute events overnight No other acute complaints or concerns at this time Physical Exam Vital Signs: Vital Signs: Last Vital Signs Temp 99.6 F 12/23/24 08:00 Pulse 92 12/23/24 08:00 Resp 20 12/23/24 08:00 BP 154/81 H 12/23/24 08:00 Pulse Ox 93 12/23/24 08:00 O2 Del Method Oxymask 12/23/24 08:00 O2 Flow Rate 6 12/23/24 08:00 BMI result Body Mass Index 16.0 Extrem: Other: Dressing on right hip has started to peel off at the distal aspect, some of the distal incision is exposed No evidence of surrounding erythema, ecchymosis No evidence of infection Patient is able to flex and extend the digits of the left foot without difficulty Compartments soft, nontender Distal sensation intact Capillary refill brisk Patient's right elbow noted to be swollen and ecchymotic to inspection Tenderness to extremely gentle palpation of the right elbow Sling in place Procedures Date of Service Date of Service: 12/23/24 Progress Note: A&P Assessment and plan (1) Fracture of right olecranon process: Status: Acute (2) Fracture of right superior pubic ramus: Status: Acute (3) Fracture of right inferior pubic ramus: Status: Acute (4) Closed fracture of right hip: Status: Acute (5) Fall: Status: Acute Plan Continue pain management Continue aspirin for DVT prophylaxis Toe-touch weight-bearing right lower extremity Sling to remain in place on right elbow at all times Encourage elevation of right elbow on pillow while in bed Patient to be re-evaluated this week with Dr. Mendez for olecranon fracture Continue with all other recommendations per Medicine Time Spent With Patient Time: Total time managing care of this patient today ____ minutes. Quality Stroke Does the patient have a stroke diagnosis?: No VTE Prior VTE?: No VTE Risk Level:: Medical - moderate - high VTE Device Contraindication: N/A - Device Ordered VTE Drug Contraindication: Treatment Not Indicated
[2024-12-23] MEDS: traMADoL HCL 50 MG TABLET PO ×2 (11:24→20:27)
--- NOTE | 2024-12-23 12:00 | HO.WOUND ---
Wound Consult: Attempted Arrival to bedside patient was sitting in chair - will attempt skin assessment at future date and or time.
--- NOTE | 2024-12-23 12:20 | MHC.CLN ---
CONSULT PT IS SEVERELY MALNOURISHED PT WITH MODERATELY DEPLETED SUBCUTANEOUS FAT AND MUSCLE MASS WITH BMI 16 AND CHRONIC POOR PO INTAKE DIET RX: PUREED WITH NT LIQ-APPROPRIATE PT RECEIVING ENSURE TID PROVIDE 1050KCALS, 60G PROTEIN RECOMMEND DECREASING SUPPLEMENT BID TO PROVIDE 700KCALS, 40G PROTEIN MONITOR PO INTAKE AND ENCOURAGE SUPPLEMENT SEE FULL CLINICAL NUTRITION ASSESSMENT
--- NOTE | 2024-12-23 14:25 | MHC.SLORD ---
Speech Language Pathology Order Status: RN consulted, pt is on modified diet, PO intake is minimal. COMBER TENDER attempted re-assess pt for diet upgrade, pt politely refused trials. COMBER TENDER to follow up tomorrow.
--- NOTE | 2024-12-23 15:37 | MHC.CM.PN ---
Patient is not cleared to discharge today. PT eval recommends STR. Preferences obtained and referrals have been sent to area facilities. DP STR via BLS.
[2024-12-24] VITALS (9 sets, daily range): BP systolic 140–177; BP diastolic 62–87; PULSE 84–92; RESP 16–20; TEMP 36.4–37.6; O2SAT 85–98
[2024-12-24] MEDS: 0.9 % Sodium Chloride Flush 3 ML SYRINGE IVFLUSH ×4 (00:56→22:43)
[2024-12-24] MEDS: cefTRIAXone sodium 1 GM VIAL IVPUSH (04:56)
[2024-12-24] MEDS: Doxycycline Hyclate 100 MG in 0.9 % Sodium Chloride 250 ML 166.67 MG IV ×2 (04:56→16:54)
[2024-12-24 07:27] LABS: MANUAL DIFF FLAG NO
[2024-12-24 07:32] LABS: Basophils Percent Auto 0.3 % (0-2); Eosinophils Absolute Auto 0.3 X10*3/uL (0.0-0.4); Eosinophils Percent Auto 2.1 % (0-4); Hematocrit 23.9 % (42.0-52.0); Imm Gran Abs Auto 0.15 X10*3/uL (0.00-0.03); Imm Gran Pct Auto 1.3 % (0.0-0.4); Lymphocytes Absolute Auto 1.2 X10*3/uL (1.2-4.9); Lymphocytes Percent Auto 10.1 % (20-40); Mean Corpuscular HGB Conc 33.5 g/dl (31.0-36.0); Mean Corpuscular Hemoglobin 32.5 pg (27.0-33.0); Mean Corpuscular Volume 97.2 fL (80.0-98.0); Mean Platelet Volume 12.2 fL (9.4-12.4); Monocytes Absolute Auto 0.9 X10*3/uL (0.1-1.2); Monocytes Percent Auto 8.1 % (2-11); NRBC Pct Auto 0.3 /100WBC (0.0-0.2); Neutrophils Absolute Auto 9.1 x10*3/uL (2.0-8.3); Neutrophils Percent Auto 78.1 % (45-73); Platelet Count 145 X10*3/uL (160-400); Red Blood Count 2.46 X10*6/uL (4.60-5.80); Red Cell Distribution Width 17.2 % (11.0-16.0); White Blood Count 11.7 X10*3/uL (4.8-10.8)
[2024-12-24 07:55] LABS: Anion Gap 13 (12-20); Blood Urea Nitrogen 33 mg/dL (9-16); Calcium 8.1 mg/dL (8.4-10.2); Carbon Dioxide 27 mmol/L (22-29); Chloride 109 mmol/L (96-108); Creatinine Clr Calc Pharmacy 36.2; Estimated Glomerular Filt Rate > 60; Glucose Fasting 143 mg/dL (60-99); Potassium 3.4 mmol/L (3.3-5.1); Sodium 146 mmol/L (135-145)
[2024-12-24] MEDS: Thiamine HCL 100 MG TABLET PO (09:08)
[2024-12-24] MEDS: Aspirin 325 MG TABLET PO ×2 (09:08→22:46)
[2024-12-24] MEDS: Furosemide 20 MG/2 ML VIAL IVPUSH ×2 (09:08→18:29)
[2024-12-24] MEDS: Omeprazole 20 MG CAPSULE.DR PO (09:08)
--- NOTE | 2024-12-24 10:51 | P.PNIM_ITS ---
Subjective Subjective Date of Service: 12/24/24 Interval History: follow up for fall, multiple fractures, dysphagia, rhabdo Now with pneumonia and likely heart failure OxyMask on Review of Systems Review of Systems: Yes all other systems are reviewed and are negative Constitutional Constitutional: Denies chills and Denies fever(s) Cardiovascular Cardiovascular: Denies chest pain, Denies palpitations and Denies dyspnea Respiratory Respiratory: Denies cough and Denies dyspnea Gastrointestinal Gastrointestinal: Denies abdominal pain, Denies nausea and Denies vomiting Endocrine Endocrine: Denies palpitations Physical Exam 2 Vital Signs: Vital Signs: Last Vital Signs Temp 99.4 F 12/24/24 07:00 Pulse 84 12/24/24 07:00 Resp 20 12/24/24 07:00 BP 159/87 H 12/24/24 07:00 Pulse Ox 85 L 12/24/24 09:33 O2 Del Method Oxymask 12/24/24 07:00 O2 Flow Rate 7 12/24/24 07:00 BMI result Body Mass Index 16.0 Appearing in no acute distress lung sounds are clear to auscultation heart regular rate rhythm, clear S1, S2 positive bowel sounds, abdomen is soft, nontender neuro patient is alert x3, no focal deficits Objective Data Active Medications Acetaminophen (Acetaminophen 325 Mg Tablet) 650 mg PO Q6H PRN PRN Reason: Pain, Mild 1-3,fever,headache Last Admin: 12/21/24 15:42 Dose: 650 mg Documented By: MISA Aspirin (Aspirin 325 Mg Tablet) 325 mg PO BID [facility] Last Admin: 12/24/24 09:08 Dose: 325 mg Documented By: TIEN Calcium Carbonate (Calcium Carbonate 750 Mg Tab.Chew) 750 mg PO Q4H PRN PRN Reason: Heartburn Ceftriaxone Sodium (Ceftriaxone Sodium 1 Gm Vial) 1 gm IVPUSH Q24H [facility] Last Admin: 12/24/24 04:56 Dose: 1 gm Documented By: ZOLTAN Furosemide (Furosemide 20 Mg/2 Ml Vial) 20 mg IVPUSH BID@0900,1800 [facility]; Protocol Last Admin: 12/24/24 09:08 Dose: 20 mg Documented By: TIEN Doxycycline Hyclate 100 mg/ (Sodium Chloride) 250 mls @ 166.67 mls/hr IV Q12H [facility] Last Infusion: 12/24/24 07:00 Dose: Infused Documented By: TIEN Magnesium Hydroxide (Milk Of Magnesia 30 Ml Oral.Susp) 30 ml PO DAILY PRN PRN Reason: Constipation Melatonin (Melatonin 3 Mg Tablet) 6 mg PO BEDTIME PRN PRN Reason: Insomnia Last Admin: 12/19/24 22:39 Dose: 6 mg Documented By: LEA Omeprazole (Omeprazole 20 Mg Capsule.Dr) 20 mg PO DAILY [facility] Last Admin: 12/24/24 09:08 Dose: 20 mg Documented By: TIEN Ondansetron HCl (Ondansetron Hcl 4 Mg/2 Ml Vial) 4 mg IVPUSH Q8H PRN PRN Reason: Nausea and Vomiting Sodium Chloride (0.9 % Sodium Chloride Flush 3 Ml Syringe) [facility] Last Admin: 12/24/24 09:09 Dose: 3 ml Documented By: TIEN Sodium Chloride (0.9 % Sodium Chloride Flush 3 Ml Syringe) 3 ml IVFLUSH [facility] Last Admin: 12/24/24 09:16 Dose: Not Given Documented By: TIEN Non-Admin Reason: Duplicate Order Thiamine HCl (Thiamine Hcl 100 Mg Tablet) 100 mg PO DAILY [facility] Last Admin: 12/24/24 09:08 Dose: 100 mg Documented By: TINE Tramadol HCl (Tramadol Hcl 50 Mg Tablet) 50 mg PO Q6H PRN PRN Reason: Pain, Severe (Pain Scale 7-10) Last Admin: 12/23/24 20:27 Dose: 50 mg Documented By: ZOLTAN Labs 12/24/24 06:25 12/24/24 06:25 Labs: Laboratory Results - last 24 hr 12/24/24 06:25 MCV 97.2 MCH 32.5 MCHC 33.5 RDW 17.2 H Plt Count 145 L MPV 12.2 Immature Gran % (Auto) 1.3 H Neut % (Auto) 78.1 H Lymph % (Auto) 10.1 L [place] % (Auto) 8.1 Eos % (Auto) 2.1 Baso % (Auto) 0.3 Lymph # (Auto) 1.2 [place] # (Auto) 0.9 Eos # (Auto) 0.3 Baso # (Auto) 0.0 Abs Immat Gran (auto) 0.15 H Absolute Neuts (auto) 9.1 H Absolute Nucleated RBC 0.040 H Nucleated RBC % (auto) 0.3 H Anion Gap 13 Estim Creat Clear Calc 36.2 Estimated GFR > 60 Fasting Glucose 143 H Calcium 8.1 L Assessment and Plan (1) Closed fracture of right hip: Status: Acute (2) Fracture of right olecranon process: Status: Acute (3) Fracture of right superior pubic ramus: Status: Acute (4) Fracture of right inferior pubic ramus: Status: Acute (5) Elevated troponin: Status: Acute (6) Rhabdomyolysis: Status: Acute Plan 79-year-old male with pertinent history of alcohol use disorder, gastroesophageal reflux disease, gout who was brought to the emergency department for evaluation after a fall. Acute hypoxic respiratory failure secondary to acute HFpEF and Pneumonia Elevated BNP 2630 Echocardiogram on 12/20/2024 showing EF of 50-55% with basal inferior lateral hypokinesis and no obvious valvular pathology Lasix 20 mg IV BID Cardiology consultation continue oxymask to keep o2 >90% continue Rocephin and Doxycycline for 5 days Acute subcapital right femoral neck fracture/Acute right superior and inferior pubic rami fracture/Acute right clavicular fracture/Acute olecranon fracture due to unwitnessed fall ORIF of the right olecranon not planned at this time pain control s/p right hip hemiarthorplasty today 12/21/24 PT>rec STR Chronic iron def anemia no acute blood loss noted b12 >2000, folate >1676 and iron 12 IV iron x2 Iron supplementation added stool occult LETICIA. Resolved likely due to rhabdo/dehydration Hypernatremia mild monitor Acute mild traumatic rhabdomyolysis CPK 3643, 3531,1616 s/p IVF Unwitnessed fall Likely mechanical. Patient denies syncope or presyncope prior to the fall. Denies chest pain/palpitations prior to the fall. No seizure-like activity. Elevated troponin Type 2 in the setting of increased demand seen by cardiology intermediate risk for planned procedure echo pending Alcohol use disorder Monitor [place]. thiamine. Patient denies history of alcohol withdrawals Thrombocytopenia ? due to etoh follow CBC Gastroesophageal reflux disease PPI Severe protein calorie malnutrition as evidenced by BMI 16.0, loss of muscle mass and subcutaneous fat nutrition following DVT prophylaxis: Full dose asa as per surgical team Full code. Discussed with patient at bedside Quality Stroke Does the patient have a stroke diagnosis?: No VTE Prior VTE?: No VTE Risk Level:: Medical - moderate - high VTE Device Contraindication: N/A - Device Ordered VTE Drug Contraindication: Treatment Not Indicated
[2024-12-24] MEDS: Iron Sucrose Complex 100 MG in 0.9 % Sodium Chloride 50 ML 220 MG IV (11:34)
--- NOTE | 2024-12-24 13:01 | MHC.SL.SWA ---
Dysphasia Diet Status: UPGRADE liquids Liquid Consistency and Strategies for Safe Swallow: Liquid Intake Recommendation: Thin Liquid Intake Strategies: Small Sips No Straws Solid Food Consistency: Dietary Recommendations: Pureed (NDD1) Additional Modifications to Solid Foods: Oral Medication Intake: Crushed with Puree Please contact the pharmacy regarding appropriate crushable or liquid drug formulations that are available whenever modified delivery is recommended. Compensatory Strategies and Precautions to be Taken for Safe Swallow: Sitting Upright (90 deg) No Straw Small Bites and Sips Rate of Ingestion Change Supervision While Eating and Drinking for Safe Swallow: Total Assistance (1:1) Swallowing Recommended Treatments: Compens. Strategy Educat. Recommendation for Speech: Inpatient Speech Therapy Speech Therapy at next level of care Comment: Recommend UPGRADE to THIN liquids (NO STRAW) with FULL ASSISTANCE to support coordination of PO intake and O2 needs via Oxymask. Patient requires cueing to take small sips to limit time w/o oxymask. Continue w/ PUREE solids d/t edentulous state. Pt does not have both upper and lower dentures and therefore prefers to be edentulous. Pt expresses preference for puree solids w/o dentures. Continue w/ pills whole/crushed in puree. Recommend [employer] tx at next level of care for dysphagia to upgrade diet if/when warranted. Frequency/Duration: M-F while inpatient Animal Daycare Provider Clinican/Clinical Fellow: No Supervisory Statement: I have reviewed and agree with the student/clinical fellow's documentation: N/A Speech Language Pathologist: Catherine Giang M.A., [facility]
--- NOTE | 2024-12-24 17:03 | HO.WOUND ---
Wound Consult: Initial 79yr old? admitted to [facility] on 12/19/24- See progress notes and H&P for detailed history.? Wound consult placed for Sacrum.? Patient agreeable to assessment and photo documentation.? Of note patient had fall prior to admission at home and was down for a period of time. Sacrum Etiology: Stage 2 Pressure Injury ??Present on Admission Measurements: 2cm x2 cm x 0.2cm Wound Bed: red maroon moist tissue Drainage / Odor: scant liz serosang Edges: ? well defined Liana wound: dark mron light purple ? No Induration, Fluctuance or Warmth noted Pain: pain reported Goals of Treatment: ? Foam dressing to aid in pressure redistribution and allow for moist wound healing Bilateral Heels assessed for red light purple pigmentation changes - remain intact and blanchable - however preventative foams were applied and patient reported comfort. Left Trochanter and Left hip noted for pigmentaiton changes over bony prominence - no pain noted - tissue remains intact will monitor but not clear PI at this time. Recommendations: 1. Turn and Reposition every 2 hours and as needed for patient comfort.? Use pillows or wedges to support off loading positions. 2. Off Load all bony prominences with use of pillows and heel boots if needed.? Apply Preventative foams where needed. ? 3. Monitor for incontinence and moisture control, use barrier creams when needed for prevention and treatment. 4. Provide adequate and supplemental nutrition.? 5. Continue low air loss mattress. 6. When applicable maintain blood glucose levels per Providers order. Bilateral Heels and Left Trochanter and Left Hip - Off Load Pressure with pillows. Apply skin prep, apply foam dressing peel back and assess Q shift and change every 5 days and PRN. Sacrum - Off Load Pressure with Q2 hr turns and use of pillows - Cleanse with PH balance spray or wipes, pat dry. ?Apply foam dressing to aid in off loading and protection from friction. Change every 3 days and PRN. Re-consult wound care Nurse for wound deterioration or wound changes.
[2024-12-25 02:53] VITALS: BP 150/70; PULSE 88; RESP 16; TEMP 37; O2SAT 95
[2024-12-25] MEDS: Doxycycline Hyclate 100 MG in 0.9 % Sodium Chloride 250 ML 166.67 MG IV (05:16)
[2024-12-25] MEDS: cefTRIAXone sodium 1 GM VIAL IVPUSH (05:16)
[2024-12-25] MEDS: Milk of Magnesia 30 ML ORAL.SUSP PO (06:26)
[2024-12-25 06:34] LABS: MANUAL DIFF FLAG NO
[2024-12-25 07:00] VITALS: BP 155/74; PULSE 85; RESP 20; TEMP 37.3; O2SAT 95
[2024-12-25 07:05] LABS: Basophils Percent Auto 0.2 % (0-2); Eosinophils Absolute Auto 0.3 X10*3/uL (0.0-0.4); Eosinophils Percent Auto 3.6 % (0-4); Imm Gran Abs Auto 0.13 X10*3/uL (0.00-0.03); Imm Gran Pct Auto 1.4 % (0.0-0.4); Lymphocytes Absolute Auto 1.5 X10*3/uL (1.2-4.9); Lymphocytes Percent Auto 16.8 % (20-40); Mean Corpuscular HGB Conc 34.8 g/dl (31.0-36.0); Mean Corpuscular Hemoglobin 32.9 pg (27.0-33.0); Mean Corpuscular Volume 94.7 fL (80.0-98.0); Monocytes Absolute Auto 0.9 X10*3/uL (0.1-1.2); Monocytes Percent Auto 9.6 % (2-11); NRBC Pct Auto 0.3 /100WBC (0.0-0.2); Neutrophils Absolute Auto 6.2 x10*3/uL (2.0-8.3); Neutrophils Percent Auto 68.4 % (45-73); Platelet Count 173 X10*3/uL (160-400); Red Blood Count 2.43 X10*6/uL (4.60-5.80); Red Cell Distribution Width 16.7 % (11.0-16.0); White Blood Count 9.1 X10*3/uL (4.8-10.8)
[2024-12-25 07:07] LABS: Anion Gap 14 (12-20); Blood Urea Nitrogen 30 mg/dL (9-16); Calcium 8.1 mg/dL (8.4-10.2); Carbon Dioxide 29 mmol/L (22-29); Chloride 106 mmol/L (96-108); Creatinine Clr Calc Pharmacy 40.5; Estimated Glomerular Filt Rate > 60; Glucose Fasting 87 mg/dL (60-99); Potassium 3.7 mmol/L (3.3-5.1); Sodium 145 mmol/L (135-145)
[2024-12-25 07:11] LABS: B Type Natriuretic Peptide 2139 pg/mL (<100)
[2024-12-25] MEDS: Aspirin 325 MG TABLET PO ×2 (08:42→20:26)
[2024-12-25] MEDS: Ferrous Sulfate 324 MG TABLET.DR PO (08:43)
[2024-12-25] MEDS: Omeprazole 20 MG CAPSULE.DR PO (08:43)
[2024-12-25] MEDS: Thiamine HCL 100 MG TABLET PO (08:43)
[2024-12-25] MEDS: Iron Sucrose Complex 100 MG in 0.9 % Sodium Chloride 50 ML 220 MG IV (08:58)
[2024-12-25 11:00] VITALS: BP 179/78; PULSE 87; RESP 20; TEMP 36.9; O2SAT 94
--- NOTE | 2024-12-25 11:56 | MHC.SL.SWA ---
Speech Pathologist Impression: Mild oropharyngeal dysphagia, hx of respiratory compromise, on O2 via NC Risk of Aspiration Due to: Dysphasia Diet Status: Recommend UPGRADE to THIN liquids (NO STRAW) with FULL ASSISTANCE. Continue w/ PUREE solids d/t edentulous state. Pt does not have both upper and lower dentures and therefore prefers to be edentulous. Pt expresses preference for puree solids w/o dentures. Continue w/ pills whole/crushed in puree. Recommend BEEF BREAKER tx continue to address pt ability to manage dysphagia. Liquid Consistency and Strategies for Safe Swallow: Liquid Intake Recommendation: Thin Liquid Intake Strategies: Small Sips No Straws Solid Food Consistency: Dietary Recommendations: Pureed (NDD1) Additional Modifications to Solid Foods: Oral Medication Intake: Crushed with Puree Please contact the pharmacy regarding appropriate crushable or liquid drug formulations that are available whenever modified delivery is recommended. Compensatory Strategies and Precautions to be Taken for Safe Swallow: Sitting Upright (90 deg) No Straw Small Bites and Sips Rate of Ingestion Change Supervision While Eating and Drinking for Safe Swallow: Total Assistance (1:1) Foods to Avoid: Swallowing Recommended Treatments: Compens. Strategy Educat. Recommendation for Speech: Inpatient Speech Therapy Comment: 12/25: Pt seen for dysphagia treatment, no longer on oxymask, now on NC. Pt was upgraded to thin liquids yesterday but order not updated from NTL. Pt tolerated approximately 4 oz of thin liquid by cup sips with adequate coordination and pacing, no overt s/s of aspiration. Pt verbalized understanding of safety recommendations but benefits from reminders to slow pace, take small sips, sip by cup vs straw. BEEF BREAKER notified PA and RN, changed order to reflect thin liquid consistency (n/a). Pt in agreement with advancing liquids, remains on pureed diet as he did not want to trial other consistencies. Frequency/Duration: M-F while inpatient Date Range for Service Req: Timeline to reassess: [place] Clinican/Clinical Fellow: No Supervisory Statement: I have reviewed and agree with the student/clinical fellow's documentation: N/A Speech Language Pathologist: Amber Ramsey M.S., CCC-BEEF BREAKER
--- NOTE | 2024-12-25 12:07 | MHC.CLN ---
F/U PT IS SEVERELY MALNOURISHED SEE FULL CLINICAL NUTRITION ASSESSMENT DATED 12/23/24 PO INTAKE REMAINS POOR DIET RX: PUREED-APPROPRIATE PT RECEIVING ENSURE BID PROVIDE 700KCALS, 40G PROTEIN MONITOR PO INTAKE AND ENCOURAGE SUPPLEMENT
--- NOTE | 2024-12-25 13:21 | PC.NURSE ---
Right hip aquacel dressing intact feeling full of fluid and fluctuant to touch. Ortho paged regarding findings. Ortho PASarah bedside to evaluate. Dressing with serosanguineous drainage changed by PA.
--- NOTE | 2024-12-25 13:24 | MHC.CM.PN ---
Loulou Chaumont is following for discharge. A Cardiac consult is pending. CASEY Smith via S.
[2024-12-25 15:00] VITALS: BP 169/79; PULSE 83; RESP 18; TEMP 36.7; O2SAT 95
[2024-12-25] MEDS: Doxycycline Monohydrate 100 MG CAPSULE PO (16:57)
[2024-12-25] MEDS: 0.9 % Sodium Chloride Flush 3 ML SYRINGE IVFLUSH (16:57)
[2024-12-25] MEDS: Furosemide 20 MG/2 ML VIAL IVPUSH (18:24)
--- NOTE | 2024-12-25 18:47 | HO.PM.IMPN ---
Subjective Subjective Date of Service: 12/25/24 Interval History: Primarily complains of right hip and leg pain, well-controlled on current analgesics Reports has been out of bed twice yesterday, but not today No bowel movement for the past few days Has not been eating or drinking much Review of Systems Review of Systems: Yes all other systems are reviewed and are negative Physical Exam Vital Signs: Vital Signs: Last Vital Signs Temp 98.1 F 12/25/24 15:00 Pulse 83 12/25/24 15:00 Resp 18 12/25/24 15:00 BP 169/79 H 12/25/24 15:00 Pulse Ox 95 12/25/24 15:00 O2 Del Method Nasal Cannula 12/25/24 15:00 O2 Flow Rate 6 12/25/24 15:00 BMI result Body Mass Index 16.0 General: AOx3, frail, cachectic. In no acute distress Resp: CTA bilaterally CVS: S1, S2, RRR GI: +BS, NT, no distention Skin: Warm, dry Neuro: Cranial nerves II-XII grossly intact bilaterally. Motor grossly intact bilaterally Extremities: No edema. Right arm in sling, reduced ROM secondary to pain Psych: Appropriate affect Objective Data Active Medications Acetaminophen (Acetaminophen 325 Mg Tablet) 650 mg PO Q6H PRN PRN Reason: Pain, Mild 1-3,fever,headache Last Admin: 12/21/24 15:42 Dose: 650 mg Documented By: MISA Aspirin (Aspirin 325 Mg Tablet) 325 mg PO BID [facility] Last Admin: 12/25/24 08:42 Dose: 325 mg Documented By: TIEN Calcium Carbonate (Calcium Carbonate 750 Mg Tab.Chew) 750 mg PO Q4H PRN PRN Reason: Heartburn Ceftriaxone Sodium (Ceftriaxone Sodium 1 Gm Vial) 1 gm IVPUSH Q24H [facility] Stop: 12/27/24 23:59 Last Admin: 12/25/24 05:16 Dose: 1 gm Documented By: EMILY Doxycycline Monohydrate (Doxycycline Monohydrate 100 Mg Capsule) 100 mg PO Q12H [facility] Stop: 12/27/24 23:59 Last Admin: 12/25/24 16:57 Dose: 100 mg Documented By: TIEN Ferrous Sulfate (Ferrous Sulfate 324 Mg Tablet.) 324 mg PO DAILY [facility] Last Admin: 12/25/24 08:43 Dose: 324 mg Documented By: TIEN Furosemide (Furosemide 20 Mg/2 Ml Vial) 20 mg IVPUSH BID@0900,1800 [facility]; Protocol Last Admin: 12/25/24 18:24 Dose: 20 mg Documented By: TIEN Iron Sucrose 100 mg/ Sodium (Chloride) 55 mls @ 220 mls/hr IV DAILY [facility] Stop: 12/26/24 10:59 Last Infusion: 12/25/24 09:13 Dose: Infused Documented By: TIEN Magnesium Hydroxide (Milk Of Magnesia 30 Ml Oral.Susp) 30 ml PO DAILY PRN PRN Reason: Constipation Last Admin: 12/25/24 06:26 Dose: 30 ml Documented By: EMILY Melatonin (Melatonin 3 Mg Tablet) 6 mg PO BEDTIME PRN PRN Reason: Insomnia Last Admin: 12/19/24 22:39 Dose: 6 mg Documented By: LEA Omeprazole (Omeprazole 20 Mg Capsule.Dr) 20 mg PO DAILY [facility] Last Admin: 12/25/24 08:43 Dose: 20 mg Documented By: TIEN Ondansetron HCl (Ondansetron Hcl 4 Mg/2 Ml Vial) 4 mg IVPUSH Q8H PRN PRN Reason: Nausea and Vomiting Sodium Chloride (0.9 % Sodium Chloride Flush 3 Ml Syringe) 3 ml IVFLUSH [facility] Last Admin: 12/25/24 16:57 Dose: 3 ml Documented By: TIEN Sodium Chloride (0.9 % Sodium Chloride Flush 3 Ml Syringe) 3 ml IVFLUSH [facility] Last Admin: 12/25/24 17:01 Dose: Not Given Documented By: TIEN Non-Admin Reason: Duplicate Order Thiamine HCl (Thiamine Hcl 100 Mg Tablet) 100 mg PO DAILY [facility] Last Admin: 12/25/24 08:43 Dose: 100 mg Documented By: TIEN Labs 12/25/24 05:56 12/25/24 05:56 Labs: Laboratory Results - last 24 hr 12/25/24 05:56 MCV 94.7 MCH 32.9 MCHC 34.8 RDW 16.7 H Plt Count 173 MPV 12.0 Immature Gran % (Auto) 1.4 H Neut % (Auto) 68.4 Lymph % (Auto) 16.8 L [place] % (Auto) 9.6 Eos % (Auto) 3.6 Baso % (Auto) 0.2 Lymph # (Auto) 1.5 [place] # (Auto) 0.9 Eos # (Auto) 0.3 Baso # (Auto) 0.0 Abs Immat Gran (auto) 0.13 H Absolute Neuts (auto) 6.2 Absolute Nucleated RBC 0.030 H Nucleated RBC % (auto) 0.3 H Anion Gap 14 Estim Creat Clear Calc 40.5 Estimated GFR > 60 Fasting Glucose 87 Calcium 8.1 L B-Natriuretic Peptide 2139 H Assessment and Plan (1) Closed fracture of right hip: Status: Acute (2) Fracture of right olecranon process: Status: Acute (3) Fracture of right superior pubic ramus: Status: Acute (4) Fracture of right inferior pubic ramus: Status: Acute Plan 79-year-old male with pertinent history of alcohol use disorder, gastroesophageal reflux disease, gout who was brought to the emergency department for evaluation after a fall. Acute hypoxic respiratory failure secondary to acute HFpEF and Pneumonia Elevated BNP 2630 Echocardiogram on 12/20/2024 showing EF of 50-55% with basal inferior lateral hypokinesis and no obvious valvular pathology Lasix 20 mg IV BID Cardiology consultation continue oxymask to keep o2 >90% continue Rocephin and Doxycycline for 5 days Acute subcapital right femoral neck fracture/Acute right superior and inferior pubic rami fracture/Acute right clavicular fracture/Acute olecranon fracture due to unwitnessed fall ORIF of the right olecranon not planned at this time pain control s/p right hip hemiarthorplasty on 12/21/24 PT>rec STR Chronic iron def anemia no acute blood loss noted b12 >2000, folate >1676 and iron 12 IV iron x2 Iron supplementation added LETICIA. Resolved likely due to rhabdo/dehydration Hypernatremia mild monitor Acute mild traumatic rhabdomyolysis CPK 3643, 3531,1616 s/p IVF Unwitnessed fall Likely mechanical. Patient denies syncope or presyncope prior to the fall. Denies chest pain/palpitations prior to the fall. No seizure-like activity. Elevated troponin Type 2 in the setting of increased demand seen by cardiology intermediate risk for planned procedure echo pending Constipation Start on bowel regimen: MiraLax and Colace Alcohol use disorder CIWA score has been very low, will discontinue thiamine. Patient denies history of alcohol withdrawals Thrombocytopenia ? due to etoh follow CBC Gastroesophageal reflux disease PPI Severe protein calorie malnutrition as evidenced by BMI 16.0, loss of muscle mass and subcutaneous fat nutrition following DVT prophylaxis: Full dose asa as per surgical team Full code. Discussed with patient at bedside Quality Stroke Does the patient have a stroke diagnosis?: No VTE Prior VTE?: No VTE Risk Level:: Medical - moderate - high VTE Device Contraindication: N/A - Device Ordered VTE Drug Contraindication: Treatment Not Indicated
[2024-12-25 19:00] VITALS: BP 157/74; PULSE 93; RESP 18; TEMP 36.9; O2SAT 93
[2024-12-25] MEDS: Docusate Sodium 100 MG CAPSULE PO (20:27)
[2024-12-25 23:00] VITALS: BP 200/97; PULSE 83; RESP 18; TEMP 36.9; O2SAT 97
--- NOTE | 2024-12-25 23:52 | PC.NURSE ---
Pt here s/p fall with fractures. Pt BP 200/97. Pt A&O x4, is uncooperative with care, refusing staff to check a manual BP, refusing to reposition. Pt has been educated on risk of high BP and putting his skin at risk with refusing to turn and reposition. Pt states to this RN and aide that, I just want to sleep. Tomorrow is another day . Dr Pedro notified of refusals via [employer]. Pt has call jefferson within reach and bed alarm is engaged for safety.
[2024-12-26] VITALS (8 sets, daily range): BP systolic 120–167; BP diastolic 66–83; PULSE 88–89; RESP 18–20; TEMP 36.4–37.1; O2SAT 87–95
[2024-12-26 06:05] LABS: MANUAL DIFF FLAG NO
[2024-12-26] MEDS: cefTRIAXone sodium 1 GM VIAL IVPUSH (06:06)
[2024-12-26] MEDS: Doxycycline Monohydrate 100 MG CAPSULE PO ×2 (06:06→17:30)
[2024-12-26 06:17] LABS: Basophils Percent Auto 0.3 % (0-2); Eosinophils Absolute Auto 0.4 X10*3/uL (0.0-0.4); Eosinophils Percent Auto 3.2 % (0-4); Hematocrit 24.1 % (42.0-52.0); Hemoglobin 8.3 g/dl (14.0-18.0); Imm Gran Abs Auto 0.24 X10*3/uL (0.00-0.03); Imm Gran Pct Auto 2.2 % (0.0-0.4); Lymphocytes Absolute Auto 1.4 X10*3/uL (1.2-4.9); Lymphocytes Percent Auto 12.7 % (20-40); Mean Corpuscular HGB Conc 34.4 g/dl (31.0-36.0); Mean Corpuscular Hemoglobin 32.7 pg (27.0-33.0); Mean Corpuscular Volume 94.9 fL (80.0-98.0); Mean Platelet Volume 11.7 fL (9.4-12.4); Monocytes Absolute Auto 0.7 X10*3/uL (0.1-1.2); Monocytes Percent Auto 6.7 % (2-11); NRBC Pct Auto 0.4 /100WBC (0.0-0.2); Neutrophils Absolute Auto 8.3 x10*3/uL (2.0-8.3); Neutrophils Percent Auto 74.9 % (45-73); Platelet Count 208 X10*3/uL (160-400); Red Blood Count 2.54 X10*6/uL (4.60-5.80); Red Cell Distribution Width 16.4 % (11.0-16.0); White Blood Count 11.1 X10*3/uL (4.8-10.8)
[2024-12-26 06:28] LABS: Anion Gap 12 (12-20); Blood Urea Nitrogen 28 mg/dL (9-16); Calcium 8.3 mg/dL (8.4-10.2); Carbon Dioxide 30 mmol/L (22-29); Chloride 105 mmol/L (96-108); Creatinine Clr Calc Pharmacy 44.2; Estimated Glomerular Filt Rate > 60; Glucose Fasting 92 mg/dL (60-99); Potassium 3.5 mmol/L (3.3-5.1); Sodium 143 mmol/L (135-145)
[2024-12-26 06:34] LABS: B Type Natriuretic Peptide 1805 pg/mL (<100)
[2024-12-26] MEDS: Iron Sucrose Complex 100 MG in 0.9 % Sodium Chloride 50 ML 220 MG IV (09:54)
[2024-12-26] MEDS: Aspirin 325 MG TABLET PO (09:54)
[2024-12-26] MEDS: Docusate Sodium 100 MG CAPSULE PO (09:55)
[2024-12-26] MEDS: Thiamine HCL 100 MG TABLET PO (09:55)
[2024-12-26] MEDS: Ferrous Sulfate 324 MG TABLET.DR PO (09:55)
[2024-12-26] MEDS: Furosemide 20 MG/2 ML VIAL IVPUSH ×2 (09:55→17:30)
[2024-12-26] MEDS: 0.9 % Sodium Chloride Flush 3 ML SYRINGE IVFLUSH ×3 (09:55→23:46)
[2024-12-26] MEDS: polyethylene glycoL 3350 17 GM POWD.PACK PO (09:55)
[2024-12-26] MEDS: Omeprazole 20 MG CAPSULE.DR PO (09:55)
--- NOTE | 2024-12-26 12:00 | CA_ITS ---
Transthoracic Echocardiogram Patient (Last, First, Middle): Rikki Razo, Gender: Male Date of : 1945 Age: 79 Procedure Date: 12/26/2024 Procedure Type: Transthoracic Echocardiogram [place] [facility] [place]: 160.02 cm Weight: 40.82 kg BSA: 1.38 m2 Heart Rate: bpm BP: 144 / 68 mmHg Bit Tapper: TO Referring MD: Viji LUCAS Retail Store Associate: Gian Ortiz MD Symptoms: hypoxia, chf Study Quality: Technically Difficult/Contrast ECG Rhythm: Sinus Conclusions: - 1. Low normal LV ejection fraction 50-55% with grade 1 diastolic dysfunction with normal left atrial filling pressures. 2. Normal right atrial pressures Findings Procedure Information Contrast agent, definity, is being given per protocol without apparent complications. The study quality is limited by patients body habitus. Left Ventricle Normal left ventricular cavity size. There is normal left ventricular wall thickness. The left ventricular systolic function is low normal. The visually estimated ejection fraction is between 50-55%. Spectral Doppler is indicative of an impaired relaxation filling pattern. E/E prime ratio is <8, consistent with normal filling pressures. Evidence suggests grade I (mild) diastolic dysfunction. Tricuspid Valve Normal right atrial pressure. Venous The inferior vena cava collapses greater than 50% with inspiration. Prior Study Comparison No significant change compared to prior study dated: 12/20/2024. Measurements 2D Linear Measurements IVSd: 1.14 0.6-0.9/0.6-1.0 cm LVIDd: 3.90 3.9-5.3/4.2-5.9 cm LVIDd Index: 2.83 2.4-3.2/2.2-3.1 cm/m2 LVIDs: 2.76 2.0-3.6 cm LVPWd: 0.77 0.7-1.1 cm LV Mass: 142.28 67-162/88-224 g LV Mass Index: 103.10 43-95/49-115 g/m2 LVOT Diam: 2.20 3.0+(-)1.3 cm 2D Systolic Function EF 4C: 50.70 >55% Mitral Valve MV Pk E: 0.39 MV PK A: 0.60 MV Decel Time: 140.00 E/A: 0.70 E'Lateral: 7.07 E'Medial: 4.57 E/E' Med: 8.50 E/E' Lat: 5.50 PHT: 41.00 MVA PHT: 5.37 Decel Swain: 2.78 LVOT LVOT Pk Christiano: 0.64 LVOT Mn Christiano: 0.42 LVOT VTI: 0.10 LVOT Pk Grad: 2.00 LVOT Mn Grad: 1.00 LVOT Diam: 2.20 LVOT Area: 3.80 Diastolic Function MV Pk E: 0.39 MV Pk A: 0.60 E/A: 0.70 E'Medial: 4.57 E/E' Med: 8.50 E' Laterial: 7.07 E/E' Lat: 5.50 Tricuspid Valve RA Press: 8.00 Updated in Other Vendor System with Status of Final Gian Ortiz MD electronically signed on 12/26/2024 5:32:07 PM with status of Final
--- NOTE | 2024-12-26 12:21 | P.PNIM_ITS ---
Subjective Subjective Date of Service: 12/26/24 Interval History: seen and examined this morning follow up for multiple fractures, pneumonia, CHF Patient awake, alert, denies shortness of breath. Does report intermittent productive cough Review of Systems Review of Systems: Yes all other systems are reviewed and are negative Constitutional Constitutional: Denies chills and Denies fever(s) Cardiovascular Cardiovascular: Denies chest pain and Denies palpitations Endocrine Endocrine: Denies palpitations Physical Exam 2 Vital Signs: Vital Signs: Last Vital Signs Temp 98.6 F 12/26/24 11:15 Pulse 88 12/26/24 11:15 Resp 18 12/26/24 11:15 BP 144/68 H 12/26/24 11:15 Pulse Ox 92 12/26/24 11:15 O2 Del Method Nasal Cannula 12/26/24 11:15 O2 Flow Rate 4 12/26/24 11:15 BMI result Body Mass Index 16.0 Const: General: cooperative, alert and awake Nutritional Appearance: thin Orientation/consciousness: patient oriented x3 Resp: Effort & Inspection: normal respiratory effort, able to speak in complete sentences, no respiratory distress and no use of accessory muscles Cardio: Rate: regular rate GI: Inspection: No distended Palpation (GI): Soft to palpation and nontender Neuro: General: patient oriented x3 and CN's II-XI intact bilaterally Extrem: Other: right hip dressing in place; right arm sling Objective Data Active Medications Acetaminophen (Acetaminophen 325 Mg Tablet) 650 mg PO Q6H PRN PRN Reason: Pain, Mild 1-3,fever,headache Last Admin: 12/21/24 15:42 Dose: 650 mg Documented By: MISA Aspirin (Aspirin 325 Mg Tablet) 325 mg PO BID [facility] [place] Last Admin: 12/26/24 09:54 Dose: 325 mg Documented By: LUCAS Calcium Carbonate (Calcium Carbonate 750 Mg Tab.Chew) 750 mg PO Q4H PRN PRN Reason: Heartburn Ceftriaxone Sodium (Ceftriaxone Sodium 1 Gm Vial) 1 gm IVPUSH Q24H [facility] [place] Stop: 12/27/24 23:59 Last Admin: 12/26/24 06:06 Dose: 1 gm Documented By: NELIDA Docusate Sodium (Docusate Sodium 100 Mg Capsule) 100 mg PO BID [facility] [place] Last Admin: 12/26/24 09:55 Dose: 100 mg Documented By: LUCAS Doxycycline Monohydrate (Doxycycline Monohydrate 100 Mg Capsule) 100 mg PO Q12H [facility] [place] Stop: 12/27/24 23:59 Last Admin: 12/26/24 06:06 Dose: 100 mg Documented By: NELIDA Ferrous Sulfate (Ferrous Sulfate 324 Mg Tablet.) 324 mg PO DAILY [facility] [place] Last Admin: 12/26/24 09:55 Dose: 324 mg Documented By: LUCAS Furosemide (Furosemide 20 Mg/2 Ml Vial) 20 mg IVPUSH BID@0900,1800 [facility] [place]; Protocol Last Admin: 12/26/24 09:55 Dose: 20 mg Documented By: LUCAS Magnesium Hydroxide (Milk Of Magnesia 30 Ml Oral.Susp) 30 ml PO DAILY PRN PRN Reason: Constipation Last Admin: 12/25/24 06:26 Dose: 30 ml Documented By: EMILY Melatonin (Melatonin 3 Mg Tablet) 6 mg PO BEDTIME PRN PRN Reason: Insomnia Last Admin: 12/19/24 22:39 Dose: 6 mg Documented By: LEA Omeprazole (Omeprazole 20 Mg Capsule.) 20 mg PO DAILY [facility] [place] Last Admin: 12/26/24 09:55 Dose: 20 mg Documented By: LUCAS Ondansetron HCl (Ondansetron Hcl 4 Mg/2 Ml Vial) 4 mg IVPUSH Q8H PRN PRN Reason: Nausea and Vomiting Polyethylene Glycol (Polyethylene Glycol 3350 17 Gm Powd.Pack) 17 gm PO DAILY [facility] [place] Last Admin: 12/26/24 09:55 Dose: 17 gm Documented By: LUCAS Sodium Chloride (0.9 % Sodium Chloride Flush 3 Ml Syringe) [facility] Last Admin: 12/26/24 09:55 Dose: 3 ml Documented By: LUCAS Sodium Chloride (0.9 % Sodium Chloride Flush 3 Ml Syringe) 3 ml IVFLUSH QSHIFT [facility] [place] Last Admin: 12/26/24 10:03 Dose: Not Given Documented By: LUCAS Non-Admin Reason: IV Running Thiamine HCl (Thiamine Hcl 100 Mg Tablet) 100 mg PO DAILY [facility] [place] Last Admin: 12/26/24 09:55 Dose: 100 mg Documented By: LUCAS Labs 12/26/24 05:59 12/26/24 05:59 Labs: Laboratory Results - last 24 hr 12/26/24 05:59 MCV 94.9 MCH 32.7 MCHC 34.4 RDW 16.4 H Plt Count 208 MPV 11.7 Immature Gran % (Auto) 2.2 H Neut % (Auto) 74.9 H Lymph % (Auto) 12.7 L Payette % (Auto) 6.7 Eos % (Auto) 3.2 Baso % (Auto) 0.3 Lymph # (Auto) 1.4 Payette # (Auto) 0.7 Eos # (Auto) 0.4 Baso # (Auto) 0.0 Abs Immat Gran (auto) 0.24 H Absolute Neuts (auto) 8.3 Absolute Nucleated RBC 0.040 H Nucleated RBC % (auto) 0.4 H Anion Gap 12 Estim Creat Clear Calc 44.2 Estimated GFR > 60 Fasting Glucose 92 Calcium 8.3 L Total Creatine Kinase 106 B-Natriuretic Peptide 1805 H Assessment and Plan (1) Acute hypoxemic respiratory failure: Status: Acute (2) Fracture of right olecranon process: Status: Acute (3) Fracture of right superior pubic ramus: Status: Acute (4) Fracture of right inferior pubic ramus: Status: Acute (5) Closed fracture of right hip: Status: Acute Plan 79-year-old male with pertinent history of alcohol use disorder, gastroesophageal reflux disease, gout who was brought to the emergency department for evaluation after a fall. Acute hypoxic respiratory failure secondary to acute HFpEF and Pneumonia Echocardiogram on 12/20/2024 showing EF of 50-55% with basal inferior lateral hypokinesis and no obvious valvular pathology Seen by Cardiology, continue Lasix 20 mg IV BID Plan to repeat limited echocardiogram continue oxymask to keep o2 >90% wean oxygen as tolerated continue Rocephin and Doxycycline for 5 days, end date 12/27 Acute subcapital right femoral neck fracture/Acute right superior and inferior pubic rami fracture/Acute right clavicular fracture/Acute olecranon fracture due to unwitnessed fall ORIF of the right olecranon not planned at this time s/p right hip hemiarthorplasty on 12/21/24 Continue aspirin for DVT prophylaxis Toe-touch weight-bearing right lower extremity Sling to remain in place on right elbow at all times Encourage elevation of right elbow on pillow while in bed PT>rec STR Chronic iron def anemia no acute blood loss noted b12 >2000, folate >1676 and iron 12 IV iron x2 Iron supplementation added H/H stable LETICIA. Resolved. likely due to rhabdo/dehydration Hypernatremia resolved Acute mild traumatic rhabdomyolysis Resolved with IV fluid Unwitnessed fall Likely mechanical. Patient denies syncope or presyncope prior to the fall. Denies chest pain/palpitations prior to the fall. No seizure-like activity. seen by PT - plan for STR Elevated troponin Type 2 in the setting of increased demand seen by cardiology intermediate risk for planned procedure Constipation Start on bowel regimen: MiraLax and Colace Alcohol use disorder CIWA score has been very low, will discontinue Continue thiamine Thrombocytopenia ? due to etoh. Now normalized Gastroesophageal reflux disease PPI Severe protein calorie malnutrition as evidenced by BMI 16.0, loss of muscle mass and subcutaneous fat nutrition following DVT prophylaxis: Full dose asa as per surgical team Full code Quality Stroke Does the patient have a stroke diagnosis?: No VTE Prior VTE?: No VTE Risk Level:: Medical - moderate - high VTE Device Contraindication: N/A - Device Ordered VTE Drug Contraindication: Treatment Not Indicated
--- NOTE | 2024-12-26 12:29 | P.PNCA_ITS ---
Subjective Subjective Date of Service: 12/26/24 Principal diagnosis: Hypoxemic respiratory failure, elevated BNP. Interval history: Was requested to see him because of worsening respiratory status requiring high levels of oxygen with elevated BNP 2 days ago with BNP in the 2600 range. Since then has been diuresed. Having negative output with BNP downgrading to 1800 today. Patient says he is not feeling well in his short of breath. Requiring high level of oxygen. Initial imaging showed bilateral infiltrates suggestive of infectious etiology. Patient denies any clear chest pain. Review of Systems Constitutional: Reports fatigue and Reports weakness Cardiovascular: Denies chest pain, Denies leg edema, Denies lightheadedness, Denies Loss of Consciousness, Denies palpitations and Reports dyspnea Respiratory: Reports no additional respiratory complaints and Reports dyspnea Musculoskeletal: Reports no additional musculoskeletal complaints Reports system reviewed and no additional complaints, except as documented and Reports weakness Endocrine: Reports fatigue and Denies palpitations Physical Exam Vital Signs: Last Vital Signs Temp 98.6 F 12/26/24 11:15 Pulse 88 12/26/24 11:15 Resp 18 12/26/24 11:15 BP 144/68 H 12/26/24 11:15 Pulse Ox 92 12/26/24 11:15 O2 Del Method Nasal Cannula 12/26/24 11:15 O2 Flow Rate 4 12/26/24 11:15 BMI result Body Mass Index 16.0 Const General: cooperative and comfortable Nutritional Appearance: malnourished Orientation/consciousness: patient oriented x3 Neck Neck: Yes trachea midline, Yes supple and Yes no JVD Resp Effort & Inspection: decreased respiratory effort Auscultation: clear to auscultation bilaterally Cardio Jugular venous distension: no JVD Rhythm: regular rhythm Heart sounds: S1 normal heart sound present, S2 normal heart sound present, no click, no gallops and no murmurs GI Auscultation: normal bowel sounds Skin General skin exam: no rashes or lesions noted Neuro General: patient oriented x3 and no focal motor deficits Extrem General: Yes no clubbing, cyanosis or edema Objective Labs and Meds 12/26/24 05:59 12/26/24 05:59 Lab results: Laboratory Results - last 24 hr 12/26/24 05:59 WBC 11.1 H RBC 2.54 L Hgb 8.3 L Hct 24.1 L MCV 94.9 MCH 32.7 MCHC 34.4 RDW 16.4 H Plt Count 208 MPV 11.7 Immature Gran % (Auto) 2.2 H Neut % (Auto) 74.9 H Lymph % (Auto) 12.7 L Baker % (Auto) 6.7 Eos % (Auto) 3.2 Baso % (Auto) 0.3 Lymph # (Auto) 1.4 Baker # (Auto) 0.7 Eos # (Auto) 0.4 Baso # (Auto) 0.0 Abs Immat Gran (auto) 0.24 H Absolute Neuts (auto) 8.3 Absolute Nucleated RBC 0.040 H Nucleated RBC % (auto) 0.4 H Sodium 143 Potassium 3.5 Chloride 105 Carbon Dioxide 30 H Anion Gap 12 BUN 28 H Creatinine 0.77 Estim Creat Clear Calc 44.2 Estimated GFR > 60 Fasting Glucose 92 Calcium 8.3 L Total Creatine Kinase 106 B-Natriuretic Peptide 1805 H Progress Note: A&P Assessment and plan (1) Acute hypoxemic respiratory failure: Status: Acute Assessment and Plan: Patient with acute hypoxemic respiratory failure still requiring high levels of oxygen despite diuresis. Clinically does appear to be markedly fluid overloaded although he has significantly elevated BNP as well as chest x-ray findings suggestive of diffuse infiltrative. Question aspiration. Although heart failure can not be entirely ruled out. I would suggest him to have a limited echocardiogram to assess if there is any change in LV function to evaluate for filling pressures. Continue gentle diuresis for now. Continue supportive care. If echocardiogram is reasonably within normal limits I would suggest alternative imaging for pulmonary infiltrates. Possibly also reduced total lung volume related to respiratory muscle weakness is possibly. Will follow with you Time Spent With Patient Time: Total time managing care of this patient today ____ minutes. Progress Note: Quality Stroke Does the patient have a stroke diagnosis?: No Procedures Date of Service Date of Service: 12/26/24
--- NOTE | 2024-12-26 12:29 | MHC.SL.SWA ---
Speech Pathologist Impression: Risk of Aspiration Due to: Dysphasia Diet Status: Recommend Patient continue on Puree (NDD1) with Thin liquids, straw ok, pills whole or crushed in puree. Patient requires assistance with set up of tray, encouragement to eat. Liquid Consistency and Strategies for Safe Swallow: Liquid Intake Recommendation: Thin Liquid Intake Strategies: Small Sips No Straws Solid Food Consistency: Dietary Recommendations: Pureed (NDD1) Additional Modifications to Solid Foods: Oral Medication Intake: Crushed with Puree Please contact the pharmacy regarding appropriate crushable or liquid drug formulations that are available whenever modified delivery is recommended. Compensatory Strategies and Precautions to be Taken for Safe Swallow: Sitting Upright (90 deg) No Straw Small Bites and Sips Alternate Liquids/Solids Rate of Ingestion Change Supervision While Eating and Drinking for Safe Swallow: Tray Set Up Foods to Avoid: Swallowing Recommended Treatments: Compens. Strategy Educat. Recommendation for Speech: Inpatient Speech Therapy Comment: Patient presents with moderate oropharyngeal dysphagia, with slowed oral phase, maladaptive tongue pumping/munching behavior, and delayed/effortful swallow. Patient evidenced overt s/s of aspiration on thin liquids, with nursing staff reporting patient coughed when taking pills with water earlier this morning. Patient has upper denture with him, however, it is ill-fitting and his bottom denture is missing. Patient presented with lingual tremor, which did seem to affect his ability to manipulate semi-solid bolus. Also note hx of GERD, for which patient reportedly takes PPI. 12/24 Recommend UPGRADE to THIN liquids (NO STRAW) with FULL ASSISTANCE to support coordination of PO intake and O2 needs via Oxymask. Patient requires cueing to take small sips to limit time w/o oxymask. Continue w/ PUREE solids d/t edentulous state. Pt does not have both upper and lower dentures and therefore prefers to be edentulous. Pt expresses preference for puree solids w/o dentures. Continue w/ pills whole/crushed in puree. Recommend APPELLATE COURT CLERK tx at next level of care for dysphagia to upgrade diet if/when warranted. 12/25: Pt seen for dysphagia treatment, no longer on oxymask, now on NC. Pt was upgraded to thin liquids yesterday but order not updated from NTL. Pt tolerated approximately 4 oz of thin liquid by cup sips with adequate coordination and pacing, no overt s/s of aspiration. Pt verbalized understanding of safety recommendations but benefits from reminders to slow pace, take small sips, sip by cup vs straw. APPELLATE COURT CLERK notified PA and RN, changed order to reflect thin liquid consistency (n/a). Pt in agreement with advancing liquids, remains on pureed diet as he did not want to trial other consistencies. 12/26:Patient seen this morning at Breakfast. Patient initially refused stating that he wanted to sleep, with c/o constantly interrupted when sleeping with procedures. With some pleasantries and encouragement, patient agreed to have some food. Patient was appropriately communicative throughout, reported that he has only upper dentures in hospital but prefers not to wear them. Patient reported he has no appetite, but took a few bites of the pureed eggs on tray, and a bite of the farina. Patient noted to pump tongue to propel these purees, but produced timely swallow. Patient accepted trial of crushed gagandeep cracker in puree, did produce chewing response to the texture, but also grimaced, produced timely swallow. Given poor appetite, poor intake, he was encouraged to drink the nutrional supplement on tray and then drank most of his nutritional shake, by straw, with no difficulties. While patient appears to be able to tolerate an upgrade to a ground consistency, he has stated a strong preference to remain on purees during the inpatient stay, so no upgrade recommended at this time. Recommend Patient continue on Puree (NDD1) with Thin liquids, straw ok, pills whole or crushed in puree. Frequency/Duration: M-F while inpatient Date Range for Service Req: Timeline to reassess: Mechanical Design Drafter Clinican/Clinical Fellow: No Supervisory Statement: I have reviewed and agree with the student/clinical fellow's documentation: N/A Speech Language Pathologist: Mesha Christiansen M.A., [facility]-APPELLATE [facility] CLERK
[2024-12-27 05:00] VITALS: BP 141/63; PULSE 87; RESP 20; TEMP 36.8; O2SAT 95
[2024-12-27] MEDS: Doxycycline Monohydrate 100 MG CAPSULE PO ×2 (05:24→16:14)
[2024-12-27] MEDS: cefTRIAXone sodium 1 GM VIAL IVPUSH (05:25)
[2024-12-27 07:09] LABS: Anion Gap 16 (12-20); Blood Urea Nitrogen 32 mg/dL (9-16); Calcium 8.2 mg/dL (8.4-10.2); Carbon Dioxide 29 mmol/L (22-29); Chloride 102 mmol/L (96-108); Creatinine Clr Calc Pharmacy 44.2; Estimated Glomerular Filt Rate > 60; Glucose Random 95 mg/dL (60-115); Potassium 3.3 mmol/L (3.3-5.1); Sodium 144 mmol/L (135-145)
[2024-12-27 07:42] VITALS: BP 140/80; PULSE 92; RESP 18; TEMP 36.9; O2SAT 97
[2024-12-27] MEDS: polyethylene glycoL 3350 17 GM POWD.PACK PO (09:12)
[2024-12-27] MEDS: Omeprazole 20 MG CAPSULE.DR PO (09:13)
[2024-12-27] MEDS: Aspirin 325 MG TABLET PO (09:13)
[2024-12-27] MEDS: Acetaminophen 325 MG TABLET 650 MG PO (09:13)
[2024-12-27] MEDS: Thiamine HCL 100 MG TABLET PO (09:13)
[2024-12-27] MEDS: Docusate Sodium 100 MG CAPSULE PO (09:13)
[2024-12-27] MEDS: Ferrous Sulfate 324 MG TABLET.DR PO (09:13)
[2024-12-27 11:45] VITALS: BP 124/57; PULSE 86; RESP 18; TEMP 36.9; O2SAT 90
--- NOTE | 2024-12-27 11:45 | MHC.CLN ---
F/U PT WITH INCREASED NUTRITION RISK PT IS SEVERELY MALNOURISHED WITH PRESSURE INJURY PO INTAKE 25-50% DIET RX: PUREED-APPROPRIATE PT RECEIVING ENSURE BID PROVIDE 700KCALS, 40G PROTEIN PT IS TAKING SUPPLEMENT STATED EVERYDAY OBSERVE ENSURE SUPPLEMENT AT BEDSIDE TABLE OPENED PT DOES UNDERSTAND NEED FOR OPTIMAL NUTRITION CONTINUE TO MONITOR PO INTAKE AND ENCOURAGE SUPPLEMENT
[2024-12-27 12:00] VITALS: O2SAT 92
--- NOTE | 2024-12-27 12:29 | MHC.SL.SWA ---
Speech Pathologist Impression: Risk of Aspiration, Mild to Moderate Oropharyngeal Dysphagia Dysphasia Diet Status: Recommend Patient continue on Puree (NDD1) with Thin liquids, straw ok, pills whole or crushed in puree. Patient requires assistance with set up of tray, encouragement to eat. Liquid Consistency and Strategies for Safe Swallow: Liquid Intake Recommendation: Thin Liquid Intake Strategies: Small Sips No Straws Solid Food Consistency: Dietary Recommendations: Pureed (NDD1) Oral Medication Intake: Crushed with Puree Please contact the pharmacy regarding appropriate crushable or liquid drug formulations that are available whenever modified delivery is recommended. Compensatory Strategies and Precautions to be Taken for Safe Swallow: Sitting Upright (90 deg) Small Bites and Sips Alternate Liquids/Solids Rate of Ingestion Change Supervision While Eating and Drinking for Safe Swallow: Tray Set Up Swallowing Recommended Treatments: Compens. Strategy Educat. Recommendation for Speech: Inpatient Speech Therapy Frequency/Duration: M-F while inpatient Date Range for Service Req: Timeline to reassess: Pizzamaker Clinican/Clinical Fellow: No Supervisory Statement: I have reviewed and agree with the student/clinical fellow's documentation: N/A Speech Language Pathologist: Lenore Thakkar M.A., CCC-PRESS READER
--- NOTE | 2024-12-27 13:04 | MHC.CM.PN ---
Addendum entered by Mel Redd 12/27/24 15:36: DP: [facility] HAS OBTAINED INSURANCE AUTH FOR ADMISSION. PA/RN NOTIFIED. BLS TRANSPORT BOOKED FOR 5:30 PM VIA [facility]. Original Note: EMR REVIEWED AND PER MD ROUNDS, PT REMAINS ON 3-5 L 02 BUT IS MEDICALLY CLEARED FOR DC TO STR AT [facility]. CM REQUESTS CENTER RE-SUBMIT FOR INSURANCE AUTH. CM WILL CONTINUE TO AWAIT AUTH.
[2024-12-27 13:34] VITALS: O2SAT 92
--- NOTE | 2024-12-27 13:53 | P.PNIM_ITS ---
Subjective Subjective Date of Service: 12/27/24 Interval History: seen and examined this morning follow up for multiple issues, remains on oxygen, denies sob; intermittent cough no overnight events Review of Systems Review of Systems: Yes all other systems are reviewed and are negative Constitutional Constitutional: Reports chills and Reports fever(s) Cardiovascular Cardiovascular: Denies chest pain and Denies palpitations Endocrine Endocrine: Denies palpitations Physical Exam 2 Vital Signs: Vital Signs: Last Vital Signs Temp 98.4 F 12/27/24 11:45 Pulse 86 12/27/24 11:45 Resp 18 12/27/24 11:45 BP 124/57 L 12/27/24 11:45 Pulse Ox 92 12/27/24 13:34 O2 Del Method Nasal Cannula 12/27/24 12:00 O2 Flow Rate 3 12/27/24 12:00 BMI result Body Mass Index 16.0 Const: Other: Frail, cachectic General: cooperative, alert and awake Nutritional Appearance: thin O rientation/consciousness: patient oriented x3 Resp: Effort & Inspection: normal respiratory effort, able to speak in complete sentences, no respiratory distress and no use of accessory muscles Cardio: Rate: regular rate GI: Inspection: No distended Palpation (GI): Soft to palpation and nontender Neuro: General: patient oriented x3, moves all extremities and CN's II-XI intact bilaterally Extrem: Other: right hip dressing in place; right arm sling General: Yes no pedal edema Objective Data Active Medications Acetaminophen (Acetaminophen 325 Mg Tablet) 650 mg PO Q6H PRN PRN Reason: Pain, Mild 1-3,fever,headache Last Admin: 12/27/24 09:13 Dose: 650 mg Documented By: ROSALIND Aspirin (Aspirin 325 Mg Tablet) 325 mg PO BID [facility] Last Admin: 12/27/24 09:13 Dose: 325 mg Documented By: ROSALIND Calcium Carbonate (Calcium Carbonate 750 Mg Tab.Chew) 750 mg PO Q4H PRN PRN Reason: Heartburn Ceftriaxone Sodium (Ceftriaxone Sodium 1 Gm Vial) 1 gm IVPUSH Q24H [facility] [place] Stop: 12/27/24 23:59 Last Admin: 12/27/24 05:25 Dose: 1 gm Documented By: АННА Docusate Sodium (Docusate Sodium 100 Mg Capsule) 100 mg PO BID [facility] Last Admin: 12/27/24 09:13 Dose: 100 mg Documented By: ROSALIND Doxycycline Monohydrate (Doxycycline Monohydrate 100 Mg Capsule) 100 mg PO Q12H [facility] [place] Stop: 12/27/24 23:59 Last Admin: 12/27/24 05:24 Dose: 100 mg Documented By: АННА Ferrous Sulfate (Ferrous Sulfate 324 Mg Tablet.) 324 mg PO DAILY [facility] Last Admin: 12/27/24 09:13 Dose: 324 mg Documented By: ROSALIND Magnesium Hydroxide (Milk Of Magnesia 30 Ml Oral.Susp) 30 ml PO DAILY PRN PRN Reason: Constipation Last Admin: 12/25/24 06:26 Dose: 30 ml Documented By: EMILY Melatonin (Melatonin 3 Mg Tablet) 6 mg PO BEDTIME PRN PRN Reason: Insomnia Last Admin: 12/19/24 22:39 Dose: 6 mg Documented By: LEA Omeprazole (Omeprazole 20 Mg Capsule.) 20 mg PO DAILY [facility] [place] Last Admin: 12/27/24 09:13 Dose: 20 mg Documented By: ROSALIND Ondansetron HCl (Ondansetron Hcl 4 Mg/2 Ml Vial) 4 mg IVPUSH Q8H PRN PRN Reason: Nausea and Vomiting Polyethylene Glycol (Polyethylene Glycol 3350 17 Gm Powd.Pack) 17 gm PO DAILY [facility] Last Admin: 12/27/24 09:12 Dose: 17 gm Documented By: ROSALIND Sodium Chloride (0.9 % Sodium Chloride Flush 3 Ml Syringe) [facility] Last Admin: 12/27/24 09:32 Dose: Not Given Documented By: ROSALIND Non-Admin Reason: Previously Administered Sodium Chloride (0.9 % Sodium Chloride Flush 3 Ml Syringe) 3 ml IVFLUSH QSHIFT [facility] [place] Last Admin: 12/27/24 06:58 Dose: Not Given Documented By: ROSALIND Non-Admin Reason: Duplicate Order Thiamine HCl (Thiamine Hcl 100 Mg Tablet) 100 mg PO DAILY [facility] [place] Last Admin: 12/27/24 09:13 Dose: 100 mg Documented By: ROSALIND Labs 12/26/24 05:59 12/27/24 06:29 Labs: Laboratory Results - last 24 hr 12/27/24 06:29 Anion Gap 16 Estim Creat Clear Calc 44.2 Estimated GFR > 60 Random Glucose 95 Calcium 8.2 L Assessment and Plan (1) Acute hypoxemic respiratory failure: Status: Acute (2) Fracture of right olecranon process: Status: Acute (3) Fracture of right superior pubic ramus: Status: Acute (4) Fracture of right inferior pubic ramus: Status: Acute Plan This is an 79-year-old male with pertinent history of alcohol use disorder, gastroesophageal reflux disease, gout who was brought to the emergency department for evaluation after a fall found to have right femoral neck fracture status post repair and multiple other fractures now with respiratory failure due to pneumonia Acute hypoxic respiratory failure secondary to acute HFpEF and Pneumonia Echocardiogram on 12/20/2024 showing EF of 50-55% with basal inferior lateral hypokinesis and no obvious valvular pathology treated with Lasix 20 mg IV BID, repeat limited echocardiogram with no significant change. CTA 12/23 negative for PE continue oxymask to keep o2 >90% wean oxygen as tolerated continue Rocephin and Doxycycline for 7 days, end date 12/29 incentive spirometry Acute subcapital right femoral neck fracture/Acute right superior and inferior pubic rami fracture/Acute right clavicular fracture/Acute olecranon fracture due to unwitnessed fall ORIF of the right olecranon not planned at this time s/p right hip hemiarthorplasty on 12/21/24 Continue aspirin for DVT prophylaxis Toe-touch weight-bearing right lower extremity Sling to remain in place on right elbow at all times Encourage elevation of right elbow on pillow while in bed PT>rec STR Chronic iron def anemia no acute blood loss noted b12 >2000, folate 14 and iron 12 IV iron x2 Iron supplementation added H/H stable LETICIA. Resolved. likely due to rhabdo/dehydration Hypernatremia resolved Acute mild traumatic rhabdomyolysis Resolved with IV fluid Unwitnessed fall Likely mechanical. Patient denies syncope or presyncope prior to the fall. Denies chest pain/palpitations prior to the fall. No seizure-like activity. seen by PT - plan for STR Elevated troponin Type 2 in the setting of increased demand Constipation Start on bowel regimen: MiraLax and Colace Alcohol use disorder CIWA score has been very low, will discontinue Continue thiamine Thrombocytopenia ? due to etoh. Now normalized Gastroesophageal reflux disease PPI Severe protein calorie malnutrition as evidenced by BMI 16.0, loss of muscle mass and subcutaneous fat nutrition following DVT prophylaxis: Full dose asa as per surgical team Full code Quality Stroke Does the patient have a stroke diagnosis?: No VTE Prior VTE?: No VTE Risk Level:: Medical - moderate - high VTE Device Contraindication: N/A - Device Ordered VTE Drug Contraindication: Treatment Not Indicated
--- NOTE | 2024-12-27 15:22 | P.DS_ITS ---
DS: Providers Provider Date of Service: 12/27/24 Date of admission: 12/19/24 21:00 Date of discharge: 12/27/24 Primary care physician: Unknown Physician Consults: 12/19/24 21:56 Consult to Orthopedics Routine Consulting Provider: [facility] [place] [facility] Reason for consultation: right femoral neck fracture/ right clavicular fracture/olecranon # 12/20/24 08:33 Consult to Cardiology Routine Consulting Provider: [facility] [place] [facility] Reason for consultation: elevated cardiac enzymes; needs orthopedic surgery 12/20/24 16:35 Consult to Wound Care Routine Reason for consultation: sacrum skin tear and left lateral knee skin tear 12/23/24 04:26 Consult to Cardiology Routine Consulting Provider: [facility] [place] [facility] Reason for consultation: chf 12/25/24 11:26 Consult to Cardiology Routine Consulting Provider: [facility] [place] [facility] Reason for consultation: ?New onset CHF Attending physician on discharge: [facility] Discharging clinician: Viji Hardy DS: Diagnosis Discharge Diagnosis (1) Acute hypoxemic respiratory failure: Status: Acute (2) Fracture of right olecranon process: Status: Acute (3) Fracture of right superior pubic ramus: Status: Acute (4) Fracture of right inferior pubic ramus: Status: Acute DS: Summary Hospital Course Hospital Course: From H&P on the day of admission This has a 79-year-old male with pertinent history of alcohol use disorder, gastroesophageal reflux disease, gout who was brought to the emergency department for evaluation after a fall. Patient states he fell in his home 1 day prior to presentation. Patient does not remember exactly how he fell or what was he doing in the time of fall but thinks he fell by mistake. He did not get dizzy or lightheaded before the fall. He had not pass out. No chest pain or palpitations before the fall. No rhythmic jerking movement of extremities or tongue bite. Does endorse intermittent alcohol use and he was possibly drinking on the day of the fall. Patient was lying on the floor for about 20-24 hours as he could not get up after the fall. Family found the patient on floor and called EMS. He has been complaining of right upper and lower extremity pain since the fall. No fever, chills, palpitations, shortness of breath, abdominal pain, changes in urinary or bowel habits. In the emergency department, creatinine found to be 1.88, creatinine kinase 3643, troponin 196. Imaging with Acute subcapital right femoral neck fracture, acute right superior and inferior pubic rami fracture, acute right clavicular fracture, acute olecranon fracture. Orthopedic surgery was consulted who requested admission to medicine team. Cardiology was consulted for elevated troponin who did not recommend anticoagulation as it was likely due to demand. This is an 79-year-old male with pertinent history of alcohol use disorder, gastroesophageal reflux disease, gout who was brought to the emergency department for evaluation after a fall found to have right femoral neck fracture status post repair and multiple other fractures now with respiratory failure due to pneumonia. Acute subcapital right femoral neck fracture/Acute right superior and inferior pubic rami fracture/Acute right clavicular fracture/Acute olecranon fracture due to mchanical fall ORIF of the right olecranon not planned at this time. s/p right hip hemiarthorplasty on 12/21/24 Continue aspirin for DVT prophylaxis - continue for 6 weeks - end date February 01 Toe-touch weight-bearing right lower extremity Sling to remain in place on right elbow at all times Encourage elevation of right elbow on pillow while in bed Acute hypoxic respiratory failure secondary to acute HFpEF and Pneumonia Echocardiogram on 12/20/2024 showing EF of 50-55% with basal inferior lateral hypokinesis and no obvious valvular pathology treated with Lasix 20 mg IV BID, repeat limited echocardiogram with no significant change. seen by cardiology does not feel that CHF is playing large role at this time CTA 12/23 negative for PE most likely due to pneumonia and deconditioning. continue Rocephin and Doxycycline for 7 days, end date 12/29 encourage incentive spirometry consider repeating imaging to ensure resolution of infection. aspiration possible, recommend aspiration precautions. Has been followed by speech therapy and is currently tolerating pureed (NDD1) diet with thin liquids. Small sips, no straws. Continue outpatient speech therapy continues to require 3L supplemental oxygen, wean as tolerated Chronic iron def anemia no acute blood loss noted. b12 >2000, folate 14 and iron 12. Received IV iron x2. Oral Iron supplementation added. H/H stable LETICIA. likely due to rhabdo/dehydration. Now resolved. Hypernatremia. resolved Acute mild traumatic rhabdomyolysis. Resolved with IV fluid Unwitnessed fall Likely mechanical. Patient denies syncope or presyncope prior to the fall. Denies chest pain/palpitations prior to the fall. No seizure-like activity. seen by PT - plan for STR Elevated troponin -Type 2 in the setting of increased demand. Seen by Cardiology, no further workup indicated at this time Constipation. Started on bowel regimen: MiraLax and Colace Alcohol use disorder -CIWA score has been very low, will discontinue. Continue thiamine Thrombocytopenia -? due to etoh. Now normalized Severe protein calorie malnutrition - as evidenced by BMI 16.0, loss of muscle mass and subcutaneous fat. nutrition following. Ensure supplements added to diet Anticipate less than 30 day stay at a SNF Time Attestation Discharge Coordination Time (in mins): 36 Quality: Safe Use of Opioids Does Pt have an Active Cancer Diagnosis on the Problem List?: No Quality: Stroke Does the patient have a stroke diagnosis?: No Physical Exam Vital Signs: Vital Signs: Last Vital Signs Temp 98.4 F 12/27/24 11:45 Pulse 86 12/27/24 11:45 Resp 18 12/27/24 11:45 BP 124/57 L 12/27/24 11:45 Pulse Ox 92 12/27/24 13:34 O2 Del Method Nasal Cannula 12/27/24 12:00 O2 Flow Rate 3 12/27/24 12:00 BMI result Body Mass Index 16.0 Const: Other: Frail, cachectic General: cooperative, alert and awake Orientation/consciousness: patient oriented x3 Resp: Effort & Inspection: normal respiratory effort, able to speak in complete sentences, no respiratory distress and no use of accessory muscles Cardio: Rate: regular rate GI: Inspection: No distended Palpation (GI): Soft to palpation and nontender Skin: Other: bruising swelling right elbow Neuro: General: patient oriented x3, moves all extremities and CN's II-XI intact bilaterally Extrem: Other: right hip dressing in place; right arm sling General: Yes no pedal edema DS: Data Data Completed and Pending Completed studies during hospitalization [Text1]: Pending at discharge 12/21/24 11:44 Surgical [PTH] Routine Labs on day of discharge: Laboratory Results - last 24 hr 12/27/24 06:29 Sodium 144 Potassium 3.3 Chloride 102 Carbon Dioxide 29 Anion Gap 16 BUN 32 H Creatinine 0.77 Estim Creat Clear Calc 44.2 Estimated GFR > 60 Random Glucose 95 Calcium 8.2 L Discharge Plan Discharge Anticipated Discharge Date/Time: 12/27/24 17:00 Patient Disposition: Xfer SNF Discharge Diagnosis: Acute fracture of olecranon Acute subcapital fracture of right femoral neck Acute fractures of right superior and Chronic L1 and L3 compression fractures displaced age-indeterminate clavicular fracture likely chronic humeral fracture Acute respiratory failure with hypoxia due to pneumonia Referrals: [facility] [Outside] - 1 Week (TRANSFER FOR SHORT TERM REHAB) Angelic Evans PA-C [Physician Non Destructive Tester] - 2 Weeks (01/02/25 14:00 [facility] [place] [facility] Angelic Evans PA-C) Physician,Unknown J [Primary Care Provider] - 1 Week Discharge Medications: New doxycycline monohydrate 100 mg Capsule 100 mg PO Q12H 3 Days Qty: 6 0RF ferrous sulfate 324 mg (65 mg iron) Tablet,Delayed Release (Dr/Ec) 324 mg PO DAILY Qty: 90 0RF aspirin 325 mg Tablet 325 mg PO BID 42 Days Qty: 84 0RF Rx Instructions: END date 02/01 docusate sodium 100 mg Capsule 100 mg PO BID Qty: 90 0RF polyethylene glycol 3350 17 gram Powder In Packet 17 g PO DAILY Qty: 30 0RF thiamine mononitrate (vit B1) 100 mg Tablet 100 mg PO DAILY Qty: 90 0RF cefuroxime axetil 500 mg tablet 500 mg PO Q12H 3 Days Qty: 6 0RF bisacodyl [Gentle Laxative (bisacodyl)] 10 mg Suppository 10 mg HI BEDTIME Qty: 12 0RF Continued allopurinol 300 mg tablet 300 mg PO DAILY Qty: 90 0RF omeprazole 20 mg capsule,delayed release(DR/EC) 20 mg PO DAILY Qty: 90 2RF Discontinued naproxen [Naprosyn] 500 mg tablet 500 mg PO BID PRN (Reason: pain) Qty: 60 1RF Discharge Orders: Discharge Order (Routine); Ordered 12/27/24 Ordered By: Viji Hardy Activity on Discharge: As tolerated Stand Alone Forms: Patient Portal Discharge page Print Language: Wolof Activity Restrictions/Additional Instructions: Physical Therapy for total hip arthroplasty: gait training, ROM, strength toe toe weight bearing Limit stair climbing No showering, no tub bath-keep dressing clean, dry and intact No driving x 6 weeks Continue Aspirin 325mg tabs twice a day x 6 weeks Follow up with [facility] in 2 weeks Care Plan Goals: see below Health Concerns: Acute respiratory failure due to Pneumonia Mechanical falls resulting multiple fractures Plan of Treatment: complete course of antibiotics - 3 more days Aspirin for DVT prophylaxis for 6 weeks Wean supplemental oxygen as tolerated. Consider repeat imaging to ensure resolution of infection Aspiration precautions. NDD1 diet. continue speech therapy Incentive spirometry as tolerated Bowel regimen daily Pain has been controlled with Tylenol outpatient follow up with orthopedic surgery as above Assessment: see discharge summary
[2024-12-27 15:29] LABS: Alanine Aminotransferase 29 U/L (0-40); Albumin Level 2.5 g/dL (3.5-5.0); Aspartate Amino Transferase 50 U/L (5-37); Bilirubin Direct 0.4 mg/dL (0.0-0.5); Bilirubin Total 0.8 mg/dL (0.0-1.0); Total Protein 5.1 g/dL (6.5-8.0)
[2024-12-27 15:30] LABS: Alkaline Phosphatase 74 U/L (39-117)
[2024-12-27 16:07] VITALS: BP 147/72; PULSE 71; RESP 18; TEMP 36.9; O2SAT 93
[2024-12-27] MEDS: bisacodyL 10 MG SUPP.RECT PR (16:14)
[2024-12-27] MEDS: 0.9 % Sodium Chloride Flush 3 ML SYRINGE IVFLUSH (16:21)
== END 2024-12-27 19:25 | disposition skilled nursing facility (03) | DRG 956 ==
LOC: HO.ED 21:17 → HO.EDOVER 21:36 → HO.IMC 12-20 14:38
PROVIDERS: Hospitalist; Nurse Practitioner Acute Care; Orthopaedic Surgery; Student in an Organized Health Care Education/Training Program; Admitting Provider Student in an Organized Health Care Education/Training Program; Emergency Provider Emergency Medicine; Visit Provider Physician Assistant Medical
PROC: 0SRR0J9 Replacement of Right Hip Joint, Femoral Surface with Synthetic Substitute, Cemented, Open Approach (ICD-10-PCS; principal; 2024-12-21 08:30)
DX: S72.011A Unspecified intracapsular fracture of right femur, initial encounter for closed fracture (principal); S32.511A Fracture of superior rim of right pubis, initial encounter for closed fracture; E43 Unspecified severe protein-calorie malnutrition; J96.01 Acute respiratory failure with hypoxia; I50.31 Acute diastolic (congestive) heart failure; J18.9 Pneumonia, unspecified organism; N17.9 Acute kidney failure, unspecified; Z68.1 Body mass index [BMI] 19.9 or less, adult; E87.0 Hyperosmolality and hypernatremia; T79.6XXA Traumatic ischemia of muscle, initial encounter; S42.001A Fracture of unspecified part of right clavicle, initial encounter for closed fracture; S52.021A Displaced fracture of olecranon process without intraarticular extension of right ulna, initial encounter for closed fracture; D50.9 Iron deficiency anemia, unspecified; R13.10 Dysphagia, unspecified; E86.0 Dehydration; K59.00 Constipation, unspecified; M10.9 Gout, unspecified; W19.XXXA Unspecified fall, initial encounter; F10.90 Alcohol use, unspecified, uncomplicated; K21.9 Gastro-esophageal reflux disease without esophagitis; D69.59 Other secondary thrombocytopenia; M81.0 Age-related osteoporosis without current pathological fracture; Z20.822 Contact with and (suspected) exposure to COVID-19; Z79.899 Other long term (current) drug therapy
CPT/HCPCS: 0241U; 36415; 70450; 71045; 71250; 71275; 72125; 73060; 73070; 73090; 73522; 74176; 80048; 80053; 80076; 81001; 82550; 82607; 82728; 82746; 83540; 83690; 83880; 84484; 85007; 85025; 85027; 85610; 86850; 86900; 86901; 86923; 88305; 88311; 92526; 92610; 93005; 93306; 93308; 97110; 97112; 97163; 97167; 97530; 99285; C1776; J0690; J0696; J1271; J1756; J1938; J2003; J2270; J2371; J2704; J2795; J3010; J3370; J7120; P9016; Q9957; Q9967

== ENCOUNTER → 2024-12-19 17:34 | Outpatient (BNV) | payer MEDICARE, SELFPAY | PROVIDERS: Emergency Provider Emergency Medicine; Visit Provider Radiology Diagnostic Radiology | DX: S32.511A Fracture of superior rim of right pubis, initial encounter for closed fracture (principal); S42.001A Fracture of unspecified part of right clavicle, initial encounter for closed fracture; S09.90XA Unspecified injury of head, initial encounter; S52.031A Displaced fracture of olecranon process with intraarticular extension of right ulna, initial encounter for closed fracture | CPT/HCPCS: 70450; 71250; 72125; 73060; 73070; 73090; 73522; 74176 ==

== ENCOUNTER 2024-12-19 21:00 | Outpatient (BNV) | payer MEDICARE, SELFPAY | END 2024-12-23 00:24 | PROVIDERS: Admitting Provider Student in an Organized Health Care Education/Training Program; Emergency Provider Emergency Medicine; Visit Provider Radiology Diagnostic Radiology | DX: J90 Pleural effusion, not elsewhere classified (principal); R91.8 Other nonspecific abnormal finding of lung field | CPT/HCPCS: 71045; 71275 ==

== ENCOUNTER 2024-12-19 21:00 | Outpatient (BNV) | payer MEDICARE, SELFPAY | END 2024-12-20 09:45 | PROVIDERS: Admitting Provider Student in an Organized Health Care Education/Training Program; Emergency Provider Emergency Medicine; Visit Provider Internal Medicine | DX: Z01.810 Encounter for preprocedural cardiovascular examination (principal); S72.001A Fracture of unspecified part of neck of right femur, initial encounter for closed fracture; S32.511A Fracture of superior rim of right pubis, initial encounter for closed fracture | CPT/HCPCS: 93306 ==

== ENCOUNTER 2024-12-19 21:00 | Outpatient (BNV) | payer MEDICARE, SELFPAY | END 2024-12-26 12:00 | PROVIDERS: Admitting Provider Student in an Organized Health Care Education/Training Program; Emergency Provider Emergency Medicine; Visit Provider Internal Medicine Cardiovascular Disease | DX: I50.9 Heart failure, unspecified (principal); J96.01 Acute respiratory failure with hypoxia | CPT/HCPCS: 93308; 93321 ==

== ENCOUNTER → 2024-12-19 21:00 | Outpatient (BNV) | payer MEDICARE, SELFPAY | PROVIDERS: Admitting Provider Student in an Organized Health Care Education/Training Program; Emergency Provider Emergency Medicine; Visit Provider Internal Medicine | DX: S72.001A Fracture of unspecified part of neck of right femur, initial encounter for closed fracture (principal); W19.XXXA Unspecified fall, initial encounter; M62.82 Rhabdomyolysis; R79.89 Other specified abnormal findings of blood chemistry | CPT/HCPCS: 93010; 99223; 99233 ==

== ENCOUNTER → 2024-12-19 21:00 | Outpatient (BNV) | payer MEDICARE, SELFPAY | PROVIDERS: Admitting Provider Student in an Organized Health Care Education/Training Program; Emergency Provider Emergency Medicine | DX: S72.001A Fracture of unspecified part of neck of right femur, initial encounter for closed fracture (principal); S32.591A Other specified fracture of right pubis, initial encounter for closed fracture; S32.511A Fracture of superior rim of right pubis, initial encounter for closed fracture; S52.021A Displaced fracture of olecranon process without intraarticular extension of right ulna, initial encounter for closed fracture | CPT/HCPCS: 99223 ==

== ENCOUNTER → 2024-12-19 21:00 | Outpatient (BNV) | payer MEDICARE, SELFPAY | PROVIDERS: Admitting Provider Student in an Organized Health Care Education/Training Program; Emergency Provider Emergency Medicine; Visit Provider Student in an Organized Health Care Education/Training Program | DX: S72.001A Fracture of unspecified part of neck of right femur, initial encounter for closed fracture (principal); S52.021A Displaced fracture of olecranon process without intraarticular extension of right ulna, initial encounter for closed fracture; S32.511A Fracture of superior rim of right pubis, initial encounter for closed fracture; S32.591A Other specified fracture of right pubis, initial encounter for closed fracture; R79.89 Other specified abnormal findings of blood chemistry; M62.82 Rhabdomyolysis | CPT/HCPCS: 99223; 99232; 99499 ==

== ENCOUNTER 2025-01-02 13:43 | Outpatient (AMB) | payer MEDICARE, SELFPAY ==
--- NOTE | 2025-01-02 14:02 | A.OFFVIS_ITS ---
Intake Visit Reasons: PO right hip lisseth DOS 12/21/24 w/DR Intake Note: Rikki is an 79 year old male who presents today in a stretcher postoperatively after undergoing a right hip lisseth on 12/21/[address] Alejandro. Patient reports ongoing pain since surgery, states if he does not move he has no pain. Allergies No Known Allergies [No Known Allergies*] Allergy (Verified 12/19/24 17:52) Medication List - Last Reconciled 01/02/25 by Angelic Evans PA-C allopurinol 300 mg PO DAILY aspirin 325 mg PO BID 6 weeks bisacodyl (Gentle Laxative (bisacodyl)) 10 mg NC BEDTIME cefuroxime axetil 500 mg PO Q12H 3 days docusate sodium 100 mg PO BID doxycycline monohydrate 100 mg PO Q12H 3 days ferrous sulfate 324 mg PO DAILY omeprazole 20 mg PO DAILY polyethylene glycol 3350 17 grams PO DAILY thiamine mononitrate (vit B1) 100 mg PO DAILY HPI HPI PO right hip lisseth DOS 12/21/24 w/DR: Details: 79-year-old gentleman presents to the office today for a follow-up status post right hip hemiarthroplasty on 12/21/[address] Alejandro. While in the hospital patient was also being treated for pneumonia. Patient is at a short-term rehab at the time being, he states that he is not working with physical therapy due to the pain. Unclear if this is really due to his oxygen levels and pneumonia. While in the hospital he was also found to have a right olecranon fracture, right pubic rami fracture and a right clavicle fracture. These were all treated nonoperatively. He denies pain in the right elbow and right clavicle. [facility] Medical History Screening for hypercholesterolemia Hypertension Gout Hx of essential hypertension Surgical History No pertinent past surgical history Family History Mother Ovarian cancer Father Heart attack Social History Household Members: None Housing: Apartment Do you presently have visiting nurse or other home services: No Alcohol intake: current Alcohol intake frequency: a few times a month Alcohol type: beer and hard liquor Comment: COUNTS CORRECT Patient Tobacco Use Status: Tobacco use Unknown Tobacco use type: Cigarette Cigarettes Per Day: 6 Years Smoked: 55 e-Cigarette/Vaping Use: Never Used Second Hand Smoke Exposure: No service: No Current occupational status: retired Cognitive needs: Yes (cane/walker) Hearing needs: No Vision needs: Yes (glasses) Review of Systems Const All systems reviewed & are unremarkable except as noted in HPI and below Physical Exam Extrem Other: Right hip incision is clean dry and intact. He has no pain with range of motion or hip flexion. Good range of motion of the knee without pain. Calf supple and nontender neurovascularly intact. Right elbow skin is intact. He does have some ecchymosis. No tenderness to palpation over the olecranon. He can flex to 90 degrees or neutral. Extension lacking 15 degrees. Neurovascularly intact Right clavicle skin is intact. No tenting. No tenderness to palpation along the clavicle. Results Reviewed Results Reviewed: X-rays of the right hip obtained in the office today show an intact hip prosthes is. Stable pubic rami fracture. X-rays of the right elbow obtained in the office today show displaced olecranon fracture. Assessment & Plan Assessment & Plan (1) Fracture of right olecranon process: Code(s): S52.021A - Displaced fracture of olecranon process without intraarticular extension of right ulna, initial encounter for closed fracture Category: Medical Plan: This will be treated nonoperatively. Patient can use the arm as tolerated however no lifting. He should not force his range of motion beyond what he has at baseline. I did explain potential risk of joint collapse. We will continue to monitor this with routine x-rays. (2) Fracture of right superior pubic ramus: Code(s): S32.511A - Fracture of superior rim of right pubis, initial encounter for closed fracture Category: Medical (3) Fracture of right inferior pubic ramus: Code(s): S32.591A - Other specified fracture of right pubis, initial encounter for closed fracture Category: Medical Plan: Weightbear as tolerated. Physical therapy for gait training. (4) Closed fracture of right hip: Code(s): S72.001A - Fracture of unspecified part of neck of right femur, initial encounter for closed fracture Category: Medical Plan: Sissy removed today Steri-Strips applied. He will continue with physical therapy and occupational therapy for gait training, strengthening and ADLs. I stressed the importance of working with physical therapy to regain his strength and mobility. (5) Right clavicle fracture: Code(s): S42.001A - Fracture of unspecified part of right clavicle, initial encounter for closed fracture Category: Medical Plan: No surgical intervention warranted at this time. He should work with physical therapy for scapular and postural training. Plan He will follow up in 6 weeks with routine x-rays on the right hip, right elbow and right clavicle. Follow up sooner if needed. Orders: Orders XR hip RT min 2V Today M25.551 - Pain in right hip XR elbow RT min 3V Today M25.521 - Pain in right elbow Coding Level of Care Code Global (54582) Diagnoses Fracture of right olecranon process S52.021A Fracture of right superior pubic ramus S32.511A Fracture of right inferior pubic ramus S32.591A Closed fracture of right hip S72.001A Right clavicle fracture S42.001A
== END 2025-01-02 14:59 | disposition home or self-care (01) ==
LOC: HO.HOS 13:44
PROVIDERS: Visit Provider Physician Assistant
DX: S52.021A Displaced fracture of olecranon process without intraarticular extension of right ulna, initial encounter for closed fracture (principal); S32.511A Fracture of superior rim of right pubis, initial encounter for closed fracture; S32.591A Other specified fracture of right pubis, initial encounter for closed fracture; S72.001A Fracture of unspecified part of neck of right femur, initial encounter for closed fracture; S42.001A Fracture of unspecified part of right clavicle, initial encounter for closed fracture
CPT/HCPCS: 99024

== ENCOUNTER 2025-01-02 14:19 | Outpatient (REF) | payer MEDICARE, SELFPAY ==
--- NOTE | ~2025-01-02 | XR_ITS ---
CLINICAL HISTORY: Fall 4 view right elbow Comparison: None Findings: There is a distracted proximal ulnar fracture.. No significant arthritic change or erosions. Large joint effusion. No radiopaque foreign body. IMPRESSION: 1. Distracted intra-articular proximal ulnar fracture with elbow joint effusion This document has been electronically signed by: Matt Echeverria MD on 01/03/2025 14:46:19
--- NOTE | ~2025-01-02 | XR_ITS ---
CLINICAL HISTORY: M25.551 - Pain in right hip --- Additional Notes or Special Instructions: w pelvis 3 view, pelvis and right hip Comparison: CR - XR HIPS BRIAN MIN 3V - 12/19/2024 06:32 PM EDT Findings: There are fractures of the right pubic ramus and ischial tuberosity. Components of the hip prosthesis are well aligned and intact. Overlying skin lashae noted. No significant arthritic change. The soft tissues are unremarkable. IMPRESSION: Right pubic ramus and ischial tuberosity fractures. This document has been electronically signed by: Matt Echeverria MD on 01/03/2025 17:19:02
== END 2025-01-02 14:20 | disposition home or self-care (01) ==
LOC: HO.HOSX 14:19
PROVIDERS: Visit Provider Physician Assistant
DX: M25.551 Pain in right hip (principal); M25.521 Pain in right elbow; S52.021A Displaced fracture of olecranon process without intraarticular extension of right ulna, initial encounter for closed fracture; S32.511A Fracture of superior rim of right pubis, initial encounter for closed fracture; S32.591A Other specified fracture of right pubis, initial encounter for closed fracture; S72.001A Fracture of unspecified part of neck of right femur, initial encounter for closed fracture; S42.001A Fracture of unspecified part of right clavicle, initial encounter for closed fracture; X58.XXXA Exposure to other specified factors, initial encounter; Y93.9 Activity, unspecified; Y92.9 Unspecified place or not applicable; Y99.9 Unspecified external cause status
CPT/HCPCS: 73080; 73502; 99212

== ENCOUNTER → 2025-01-02 14:21 | Outpatient (BNV) | payer MEDICARE, SELFPAY | PROVIDERS: Visit Provider Specialist | DX: M25.551 Pain in right hip (principal); M25.521 Pain in right elbow | CPT/HCPCS: 73080; 73502 ==

== ENCOUNTER 2025-02-13 07:11 | Outpatient (REF) | payer MEDICARE, SELFPAY ==
--- NOTE | ~2025-02-13 | XR_ITS ---
EXAMINATION: XR ELBOW, RIGHT CLINICAL INFORMATION: M25.521 - Pain in right elbow COMPARISON: 04/04/2025 TECHNIQUE: AP, lateral, and oblique views of the right elbow. FINDINGS: There is diffuse low bone mineral density. Again seen is a fracture through the proximal ulna with proximal migration and distraction of the olecranon by the triceps tendon. The gap has increased in size the prior study measuring approximately 2 cm, previously 1.5 cm. There are no other changes. There is a small enthesophyte lateral humeral epicondyle. XR/XR elbow RT min 3V IMPRESSION: Increased distraction of the ulnar olecranon fracture. Osteopenia. Electronically signed by: Dav Mishra MD 02/13/2025 02:49 PM EDT
--- NOTE | ~2025-02-13 | XR_ITS ---
EXAMINATION: XR CLAVICLE RIGHT HISTORY: S42.009A - Fracture of unspecified part of unspecified clavicle, initial... COMPARISON: Comparison is made with the prior examination dated 02/21/2023. FINDINGS: Two views of the right clavicle are submitted. Osseous mineralization is normal. There is a chronic fracture deformity of the humeral neck. There is an acute fracture of the midshaft of the clavicle. There is approximately 1.5 shafts width superior displacement of the distal fracture fragment. There is mild narrowing of the AC joint. The soft tissues are unremarkable. XR/XR clavicle RT IMPRESSION: Displaced fracture of the midshaft of the clavicle as described. Electronically signed by: King Morgan MD 02/13/2025 03:08 PM EDT
--- NOTE | ~2025-02-13 | XR_ITS ---
EXAMINATION: XR HIP, RIGHT CLINICAL INFORMATION: M25.551 - Pain in right hip COMPARISON: January 02, 2025 TECHNIQUE: Two views of the right hip. FINDINGS: Total hip arthroplasty is again seen on the right. . Acetabular cup positioning is unchanged. Again seen is fracture of the superior inferior right pubic ramus visible periosteal new bone formation increasing density. There is no muscle volume and low density bone. XR/XR hip RT min 2V IMPRESSION: Total hip replacement on the right and healing right pubic ring fractures. Osteopenia and sarcopenia. Electronically signed by: Dav Mishra MD 02/13/2025 02:52 PM EDT
== END 2025-02-13 07:12 | disposition home or self-care (01) ==
LOC: HO.HOSX 07:11
PROVIDERS: Visit Provider Physician Assistant
DX: S72.001A Fracture of unspecified part of neck of right femur, initial encounter for closed fracture (principal); S52.021A Displaced fracture of olecranon process without intraarticular extension of right ulna, initial encounter for closed fracture; S32.511A Fracture of superior rim of right pubis, initial encounter for closed fracture; S32.591A Other specified fracture of right pubis, initial encounter for closed fracture; S42.001A Fracture of unspecified part of right clavicle, initial encounter for closed fracture
CPT/HCPCS: 73000; 73080; 73502; 99212

== ENCOUNTER 2025-02-13 14:12 | Outpatient (AMB) | payer MEDICARE, SELFPAY ==
--- OUTSIDE RECORDS SUMMARY | 2025-02-13 14:14 | XMS_ITS ---
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 Role Phone Salty Carpenter Unavailable Unavailable Martha Hartley Unavailable Unavailable Brain Fish Unavailable Unavailable Debra Prieto Unavailable Unavailable Allergies and adverse reactions No Known Allergies Care Team Name Role Address Phone Organization Dates Martha Hartley PCP [address] [place] [address], [phone], [facility] (Office): : [facility] [place] 01/11/2025 - 02/08/2025 Salty Carpenter [address] [place] [address], [phone], [place] (Office): : : [facility] [place] 01/11/2025 - 02/08/2025 Brian Fish [address] [place] [address], [phone], [place] (Office): [facility] [place] 01/11/2025 - 02/08/2025 Debra Prieto [address] [place] [address], [place], [phone], [facility] (Office): : [facility] [place] 01/11/2025 - 02/08/2025 Goals Section Goals Description Status Target Date Advanced Directives will be honored and reevalua nathalie as needed Active 02/27/2025 Minimize risk for falls Active 02/28/20 25 Minimize risk for injury related to falls Active 02/27/2025 Skin will remain free of gilberto akdown within limits of disease process Active 02/27/2025 Surgical wound/site will heal without complicati ons Active 02/27/2025 Surgical wound/site will rem ain free of signs and symptoms of infection Active 02/27/2025 Will be able to eat and drink free of pain Activ e 02/27/2025 Will be clean, dressed and w ell groomed daily to promote dignity and psychosocial well-being Active 02/27/2025 Will be discharged to home w hen clinical and rehabilitation goals are met Active 02/27/2025 Will consume appropriate timothy unts of food and fluids to maintain nutritional status Active 02/27/2025 Will decrease/minimize skin breakdown risks Acti ve 02/27/2025 Will develop no new areas of skin breakdown Acti ve 02/27/2025 Will develop no new areas of skin breakdown Acti ve 02/27/2025 Will experience signs and symptoms of wound heal ing Active 02/27/2025 Will express feelings of adj ustment to new surroundings by next review Active 02/27/2025 Will express that pain management is within acce ptable limits Active 02/27/2025 Will heal within the limits of the disease proce ss Active 02/27/2025 Will heal within the limits of the disease proce ss Active 02/27/2025 Will heal without complication Active 0 02/27/2025 Will heal without complication Active 0 02/27/2025 Will maintain existing ADL self performance Acti ve 02/27/2025 Will maintain good oral hygiene Active 02/27/2025 Will not develop complications related to decrea sed mobility Active 02/27/2025 Will not experience a signif icant change in weight through next review Active 02/27/2025 Will receive assistance necessary to meet ADL ne eds Active 02/27/2025 Will reduce episodes of util ization of breakthrough pain medication Active 02/27/2025 Will show continued signs of healing Active 02/27/2025 Will show continued signs of healing Active 02/27/2025 Will show no signs of infection Active 02/27/2025 Will show no signs of infection Active 02/27/2025 Will tolerate diet and textures/consistency Acti ve 02/27/2025 Will tolerate diet, texture and fluid consistency without signs and symptoms of aspiration Active 02/27/2025 Immunizations Immunization Status Vaccine Details Vaccine Code CodeSystem Date Notes Influenza cancelled Influenza, split virus, trivalent, injectable, contains preservative 141 CVX created date: 12/28/2024 consent date: 12/28/2024 Prevnar 20 Pneumococcal conjugate (PCV20) cancelled Pneumococcal conjugate vaccine 20-valent (PCV20), polysaccharide [id number] conjugate, adjuvant, preservative free 216 CVX created date: 12/28/2024 consent date: 12/28/2024 RSV, bivalent, protein subunit RSVpreF, diluent rec cancelled Respiratory syncytial virus (RSV), vaccine, bivalent, protein subunit RSV prefusion F, diluent reconstituted, 0.5 mL, preservative free 305 CVX created date: 12/28/2024 consent date: 12/28/2024 COVID-19, mRNA, LNP-S, PF, 50 mcg/0.5 mL cancelled SARS-COV-2 (COVID-19) vaccine, mRNA, spike protein, LNP, preservative free, 50 mcg/0.5 mL dose 312 CVX created date: 12/28/2024 consent date: 12/28/2024 Medications Section Medication Name Status Code CodeSystem Dose Route Frequency Admin Type Sig Text Start Date End Date Allopurinol Oral Tablet 300 MG active RXNORM 1 tablet Oral one time a day Routine Give 1 tablet by mouth one time a day for Gout 2024 - Culturelle Oral Capsule aborted 1 capsul e Oral one time a day Routine Give 1 capsul e by mouth one time a day for Probio tic 01/12 Vitamins Oral Tablet aborted 1 tablet Oral one time a day Routine Give 1 tablet by mouth one time a day for Supple mentat ion 02/03 Bisacodyl Rectal Suppository aborted 1 applic ation Rectal as needed PRN Insert 1 applic ation rectal ly every 24 hours as needed for Consti pation Use if PRN Senna is ineffe ctive 02/04 Ferrous Sulfate Tablet 325 (65 Fe) MG active 545704 RXNORM 1 tablet Oral one time a day Routine Give 1 tablet by mouth one time a day for Anemia Avoid dairy produc ts, tetrac ycline , etc. within 2 hours. May discol or urine or feces. Take with food or meal if upset stomac h occurs . 2024 - Gonzalez Oral Packet active 1 packet Oral three times a day Routine Give 1 packet by mouth three times a day for Wound Care 2024 - oxyCODONE HCl Oral Tablet 5 MG aborted [id number] 1 RXNORM 1 tablet Oral as needed PRN Give 1 tablet by mouth every 4 hours as needed for Pain 01/12 Cefpodoxime Proxetil Oral Tablet 200 MG complete d 668351 RXNORM 1 tablet Oral two times a day Routine Give 1 tablet by mouth two times a day for Pneumo ethel until 2024 23:59 01/13 hydroCHLOROth iazide Oral Tablet 25 MG aborted 395606 RXNORM 1 tablet Oral one time a day Routine Give 1 tablet by mouth one time a day for Hypert ension 02/06 Fleet Enema Enema 7-19 GM/118ML aborted 857472 RXNORM 1 unit Rectal as needed PRN Insert 1 unit rectal ly every 24 hours as needed for Consti pation Use only if Bisaco dyl Suppos itory is ineffe ctive 02/04 Acetaminophen Tablet 325 MG aborted 666839 RXNORM 2 tablet Oral as needed PRN Give 2 tablet by mouth every 6 hours as needed for Pain Do not exceed 3 grams in 24 hours. T otal 650 mg AND Give 2 tablet by mouth every 6 hours as needed for Elevat ed temp >101 Do not exceed 3 grams in 24 hours. T otal 650 mg 01/17 370184 RXNORM 2 tablet Oral as needed PRN Give 2 tablet by mouth every 6 hours as needed for Pain Do not exceed 3 grams in 24 hours. T otal 650 mg AND Give 2 tablet by mouth every 6 hours as needed for Elevat ed temp >101 Do not exceed 3 grams in 24 hours. T otal 650 mg 01/17 Senna Tablet 8.6 MG active 724696 RXNORM 1 tablet Oral as needed PRN Give 1 tablet by mouth every 24 hours as needed for Consti pation 2024 - Aspirin Tablet Chewable 81 MG aborted 862412 RXNORM 1 tablet Oral two times a day Routine Give 1 tablet by mouth two times a day for DVT Prophy laxis Monito r for bleedi ng, bruisi ng, and black tarry stools 01/15 predniSONE Oral Tablet 20 MG complete d 401691 RXNORM 3 tablet Oral one time a day Routine Give 3 tablet by mouth one time a day for Pneumo ethel for 1 Day 01/13 Omeprazole Oral Tablet Delayed Release 20 MG active 993172 RXNORM 1 tablet Oral one time a day Routine Give 1 tablet by mouth one time a day for GERD 2024 - Bisacodyl Suppository 10 MG aborted 282354 RXNORM 1 suppos itory Rectal as needed PRN Insert 1 suppos itory rectal ly every 24 hours as needed for consti pation Use if Senna is Ineffe ctive 01/12 Aspirin Tablet Chewable 81 MG complete d 652248 RXNORM 1 tablet Oral two times a day Routine Give 1 tablet by mouth two times a day for DVT Prophy laxis until 2024 23:59 Monito r for bleedi ng, bruisi ng, and black tarry stools 02/02 Tylenol Oral Tablet 325 MG aborted 079796 RXNORM 2 tablet Oral three times a day Routine Give 2 tablet by mouth three times a day for Pain AND Give 2 tablet by mouth every 12 hours as needed for mild pain 01/30387 RXNORM 2 tablet Oral as needed PRN Give 2 tablet by mouth three times a day for Pain AND Give 2 tablet by mouth every 12 hours as needed for mild pain 01/30 Tussin Cough Oral Syrup 15 MG/5ML aborted 10 ml Oral as needed PRN Give 10 ml by mouth every 4 hours as needed for Cough 02/04 Tylenol Oral Tablet 325 MG active 20930320 RXNORM 650 mg Oral as needed PRN Give 650 mg by mouth every 6 hours as needed for modera te pain 2024 - Mental Status Section Date Assessment Total Score Description 01/17/2025 BIMS 15 cognitively int act CAM 0 No delirium ind icated PHQ-9 08 mild depression 01/03/2025 CAM 0 No delirium ind icated Problems Problem # Description Date of onset Resolved Date Code CodeSystem Concern Status 1 ACUTE RESPIRATORY FAILURE WITH HYPOXIA 12/27/[address] active 2 ADULT FAILURE TO THRIVE 12/27/[address] active 3 AFTERCARE FOLLOWING JOINT REPLACEMENT SURGERY 12/27/[address] active 4 ALCOHOL ABUSE, UNCOMPLICATED 12/27/[address] active 5 ANEMIA, UNSPECIFIED 12/27/[address] active 6 DYSPHAGIA, UNSPECIFIED 12/27/[address] active 7 ESSENTIAL (PRIMARY) HYPERTENSION 12/27/[address] active 8 FRACTURE OF SUPERIOR RIM OF RIGHT PUBIS, SUBSEQUENT ENCOUNTER FOR FRACTURE WITH ROUTINE HEALING 12/27/[address] active 9 FRACTURE OF UNSPECIFIED PART OF RIGHT CLAVICLE, SUBSEQUENT ENCOUNTER FOR FRACTURE WITH ROUTINE HEALING 12/27/[address] active 10 GASTRO-ESOPHAGEAL REFLUX DISEASE WITHOUT ESOPHAGITIS 12/27/[address] active 11 PNEUMONIA, UNSPECIFIED ORGANISM 12/27/[address] active 12 UNSPECIFIED COMBINED SYSTOLIC (CONGESTIVE) AND DIASTOLIC (CONGESTIVE) HEART FAILURE 12/27/[address] active 13 UNSPECIFIED INTRACAPSULAR FRACTURE OF RIGHT FEMUR, SUBSEQUENT ENCOUNTER FOR CLOSED FRACTURE WITH ROUTINE HEALING 12/27/2024200912051892 SNOMED CT active 14 UNSPECIFIED SEVERE PROTEIN-CALORIE MALNUTRITION 12/27/[address] active 15 WEDGE COMPRESSION FRACTURE OF THIRD LUMBAR VERTEBRA, SUBSEQUENT ENCOUNTER FOR FRACTURE WITH ROUTINE HEALING 12/27/[address] active Reason for Referral No Reasons for Referral Entered Social History Social History Observation Description Start Date End Date Code Code System Current Smoking Status Tobacco smoking consumption unknown 691874374 SNOMED CT Sex Assigned At Male 1945 00373-0 [facility] Gender Identity Vital Signs Code Code System Vitals Name Values and Units Timing Information 80380-6 [facility] O2 % BldC Oximetry Value=93.0 Units= % 02/08/2025 9279-1 [facility] Respiratory Rate Value=18.0 Units=/m in 02/08/2025 8867-4 [facility] Heart rate Value=70.0 Units=/min 72281-5 [facility] Pain Level Value=0.0 02/08/2025 8462-4 [facility] Blood Pressure-Diastolic Value=68 Un its=mmHg 02/08/2025 8480-6 [facility] Blood Pressure-Systolic Xovwa=895 Un its=mmHg 02/08/2025 8310-5 [facility] Body Temperature Value=97.7 Units= F 02/07/2025 55545-4 [facility] Weight Value=83.5 Units=Lbs 01/13 [facility]302[facility] Height Value=63.0 Units=Inches 01/01/2025
--- NOTE | 2025-02-13 14:40 | MHC.OFFVIS ---
Intake Visit Reasons: PO right hip lisseth DOS 12/21/24 w/DR Intake Note: Rikki is an 79 year old male who presents today in a stretcher postoperatively after undergoing a right hip lisseth on 12/21/[address] Alejandro. Patient reports that he struggles to walk and that he drags his leg. He continues working with at home therapy. Allergies No Known Allergies (No Known Allergies*) Allergy (Verified 02/13/25 14:46) Medication List - Last Reconciled 02/13/25 by Angelic Evans PA-C allopurinol 300 mg PO DAILY aspirin 325 mg PO BID 6 weeks bisacodyl (Gentle Laxative (bisacodyl)) 10 mg DC BEDTIME cefuroxime axetil 500 mg PO Q12H 3 days docusate sodium 100 mg PO BID doxycycline monohydrate 100 mg PO Q12H 3 days ferrous sulfate 324 mg PO DAILY omeprazole 20 mg PO DAILY polyethylene glycol 3350 17 grams PO DAILY thiamine mononitrate (vit B1) 100 mg PO DAILY HPI HPI PO right hip lisseth DOS 12/21/24 w/DR: Details: 79-year-old male returns to the office today 6 week follow-up right hip hemiarthroplasty. He also has a right olecranon fracture, clavicle fracture and pubic rami fracture. The patient was recently discharged from a short-term rehab and is living with his family. He is ambulating with a walker/wheelchair. He has physical therapy services in the home. He has no real concerns today other than he wants to be able to walk. [facility] Medical History Screening for hypercholesterolemia Hypertension Gout Hx of essential hypertension Surgical History No pertinent past surgical history Family History Mother Ovarian cancer Father Heart attack Social History Household Members: None Housing: Apartment Do you presently have visiting nurse or other home services: No Alcohol intake: current Alcohol intake frequency: a few times a month Alcohol type: beer and hard liquor Comment: COUNTS CORRECT Patient Tobacco Use Status: Tobacco use Unknown Tobacco use type: Cigarette Cigarettes Per Day: 6 Years Smoked: 55 e-Cigarette/Vaping Use: Never Used Second Hand Smoke Exposure: No service: No Current occupational status: retired Cognitive needs: Yes (cane/walker) Hearing needs: No Vision needs: Yes (glasses) Review of Systems Const All systems reviewed & are unremarkable except as noted in HPI and below Physical Exam Extrem Other: Right hip incision well healed. He has no pain with range of motion or hip flexion. Good range of motion of the knee without pain. Calf supple and nontender neurovascularly intact. Right elbow skin is intact. No ecchymosis. No tenderness to palpation over the olecranon. He can flex to 90 degrees or neutral. Extension lacking 15 degrees. Neurovascularly intact Right clavicle skin is intact. No tenting. No tenderness to palpation along the clavicle. Results Reviewed Results Reviewed: X-rays of the right hip obtained in the office today show an intact hip prosthesis. Stable pubic rami fracture. X-rays of the right elbow obtained in the office today show displaced olecranon fracture, stable fracture. Assessment & Plan Assessment & Plan (1) Fracture of right olecranon process: Code(s): S52.021A - Displaced fracture of olecranon process without intraarticular extension of right ulna, initial encounter for closed fracture Category: Medical Plan: Continue non op treatment. Patient can use the arm as tolerated however no lifting. He should not force his range of motion beyond what he has at baseline. I did explain potential risk of joint collapse. We will continue to monitor this with routine x-rays. (2) Fracture of right superior pubic ramus: Code(s): S32.511A - Fracture of superior rim of right pubis, initial encounter for closed fracture Category: Medical (3) Fracture of right inferior pubic ramus: Code(s): S32.591A - Other specified fracture of right pubis, initial encounter for closed fracture Category: Medical Plan: Weightbear as tolerated. Physical therapy for gait training. (4) Closed fracture of right hip: Code(s): S72.001A - Fracture of unspecified part of neck of right femur, initial encounter for closed fracture Category: Medical Plan: He will continue with physical therapy and occupational therapy for gait training, strengthening and ADLs. I stressed the importance of working with physical therapy to regain his strength and mobility. We also discussed adequate dietary intake. (5) Right clavicle fracture: Code(s): S42.001A - Fracture of unspecified part of right clavicle, initial encounter for closed fracture Category: Medical Plan: Continued conservative management. He should work with physical therapy for scapular and postural training. Plan He will follow up in 8 weeks with routine x-rays on the right hip, right elbow and right clavicle. Follow up sooner if needed. Orders: Orders XR hip RT min 2V Today M25.551 - Pain in right hip XR elbow RT min 3V Today M25.521 - Pain in right elbow XR clavicle RT Today S42.009A - Fracture of unspecified part of unspecified clavicle, initial encounter for closed fracture Coding Level of Care Code Global (14433) Diagnoses Fracture of right olecranon process S52.021A Fracture of right superior pubic ramus S32.511A Fracture of right inferior pubic ramus S32.591A Closed fracture of right hip S72.001A Right clavicle fracture S42.001A
== END 2025-02-13 15:00 | disposition home or self-care (01) ==
LOC: HO.HOS 14:13
PROVIDERS: Visit Provider Physician Assistant
DX: S52.021A Displaced fracture of olecranon process without intraarticular extension of right ulna, initial encounter for closed fracture (principal); S32.511A Fracture of superior rim of right pubis, initial encounter for closed fracture; S32.591A Other specified fracture of right pubis, initial encounter for closed fracture; S72.001A Fracture of unspecified part of neck of right femur, initial encounter for closed fracture; S42.001A Fracture of unspecified part of right clavicle, initial encounter for closed fracture
CPT/HCPCS: 99024

== ENCOUNTER → 2025-02-13 14:18 | Outpatient (BNV) | payer MEDICARE, SELFPAY | PROVIDERS: Visit Provider Radiology Diagnostic Radiology | DX: M25.551 Pain in right hip (principal); M25.521 Pain in right elbow; S42.021A Displaced fracture of shaft of right clavicle, initial encounter for closed fracture | CPT/HCPCS: 73000; 73080; 73502 ==

== ENCOUNTER 2025-02-28 08:37 | Outpatient (AMB) | payer MEDICARE, MEDICAID, SELFPAY ==
--- NOTE | 2025-02-28 08:48 | A.OFFPC_ITS ---
Vital Signs 02/28/25 08:50 Height 5 ft 3 in Weight 82 lb BMI 14.5 BP 110/60 Blood Pressure Location Lt brachial Position Sitting Temp 96.9 F Temp Source Temporal Artery Scan Intake Visit Reasons: [facility] 02/08 Intake Note: Patient is here for hospital discharge follow up. Patient was discharged from [facility] on 02/08/25. Date Pitter Required: No Ash Kier Boiler: Present Accompanied by: Nephew or Niece Allergies No Known Allergies (No Known Allergies*) Allergy (Verified 02/28/25 08:50) Tobacco use date assessed: 02/28/25 Fall risk assessment: 1 Fall in past year Last assessed Fall Risk: 02/28/25 Dental Screening Dental Screen Date: 09/18/24 HPI HPI Comments History of Present Illness Details 79 y/o Male patient who presents to the clinic today for HDF. Past medical history significant for alcohol use disorder, gastroesophageal reflux disease, and gout. He was admitted at [facility] on 12/19 - 12/27 for an evaluation after a Mechanical Fall resulting to Acute fracture of Right olecranon and Acute subcapital fracture of right femoral neck. He was discharged to SNF ([facility]) admitted on 12/27 - 02/08 for Rehabilation. He had complications at rehab hospital; Acute Heart Failure exacerbation and Pneumonia - he was admitted briefly at [facility] for treatment. Reports insomnia due to mental Health stress - declined counselling today. Pt asking for High Calorie Ensure drinks to help him Gain weight. [facility] Medical History (Updated 02/28/25 @ 09:23 by Carmenza Cast NP) Comminuted fracture of right humerus Screening for hypercholesterolemia Hypertension Gout Hx of essential hypertension Surgical History (Updated 02/28/25 @ 08:59 by KARLA Garduno) History of total right hip arthroplasty Family History Mother Ovarian cancer Father Heart attack Social History Household Members: None Housing: Apartment Do you presently have visiting nurse or other home services: No Alcohol intake: current Alcohol intake frequency: a few times a month Alcohol type: beer and hard liquor Comment: COUNTS CORRECT Patient Tobacco Use Status: Former Tobacco user Tobacco use type: Cigarette Cigarette Packs Per Day: 0.25 Cigarettes Per Day: 1 Years Smoked: 55 Packs Per Year: 14 Packs per year/per ci.75 e-Cigarette/Vaping Use: Never Used Second Hand Smoke Exposure: Yes service: No Current occupational status: retired Cognitive needs: Yes (cane/walker) Hearing needs: No Vision needs: Yes (glasses) Questionnaire PHQ-9 Over the last 2 weeks, how often have you been bothered by any of the following problems? 1. Little interest or pleasure in doing things: not at all 2. Feeling down, depressed, or hopeless: not at all 3. Trouble falling or staying asleep, or sleeping too much: nearly every day 4. Feeling tired or having little energy: not at all 5. Poor appetite or overeating: not at all 6. Feeling bad about yourself - or that you are a failure or have let yourself or your family down: not at all 7. Trouble concentrating on things, such as reading the newspaper or watching television: not at all 8. Moving or speaking so slowly that other people could have noticed. Or the opposite - being so fidgety or restless that you have been moving around a lot more than usual: not at all 9. Thoughts that you would be better off or of hurting yourself in some wa y: not at all Total score: 3 Depression Screening Interpretation: Positive Depression Screening Done: Yes Source: Developed by Drs. King García, Amrita Macdonald, David Larios and colleagues, with an educational marcella from [employer]. Thrive Questionnaire Date Thrive assessed: 02/28/25 I am a: Patient What is your living situation today?: I have a steady place to live Within the past 12 months, did the food you bought not last and you didn't have the money to get more?: I choose not to answer this question Within the past 12 months, did you worry whether your food would run out before you got money to buy more?: Never true Do you have trouble paying for medicines?: No Do you have trouble getting transportation to medical appointments?: No Do you have trouble paying your heating and electricity bill?: No Do you have trouble taking care of your child, family member or friend?: No Do you have trouble with day-to-day activities such as bathing, preparing meals, shopping, managing finances, etc.?: Yes Are you currently unemployed and looking for a job?: Yes Are you interested in more education?: No Please select the resources that you would like help with: None Currently or been in a relationship where the following occur: I choose not to answer THRIVE Score: 0 AUDIT C Alcohol Use Questionnaire (AUDIT-C) 1. How often do you have a drink containing alcohol?: Monthly or less 2. How many drinks containing alcohol do you have on a typical day when you are drinking?: 1 or 2 3. How often do you have six or more drinks on one occasion?: Less than monthly Total Score: 2 SRAVAN-7 AMB Questionnaire SRAVAN-7 Date SRAVAN - 7 assessed: 02/28/25 Feeling nervous, anxious, or on edge: 0 = Not at all Not being able to stop or control worryin = Not at all Worrying too much about different things: 0 = Not at all Trouble relaxin = Not at all Being so restless that it is hard to sit still: 0 = Not at all Becoming easily annoyed or irritable: 0 = Not at all Feeling afraid as if something awful might happen: 0 = Not at all Total SARVAN-7 score (0-4 normal; 5-9 mild; 10-14 moderate; 15-21 severe): 0 Source: Developed by Drs. King García, Amrita Macdonald, David Larios and colleagues, with an educational marcella from [employer]. Physical exam (Primary Care) Vital Signs: Last Vital Signs Temp 96.9 F 02/28/25 08:50 BP 110/60 02/28/25 08:50 BMI result Body Mass Index 14.5 Tobacco/Smoking Status: Tobacco use Status Tobacco use date assessed 02/28/25 02/28/25 08:55 Patient Tobacco Use Status Former Tobacco user 02/28/25 09:02 Tobacco use type Cigarette 02/28/25 08:55 e-Cigarette/Vaping Use Never Used 02/28/25 08:55 PHQ-9: PHQ-9 Score PHQ-9: Total score 3 02/28/25 09:06 Depression Screening Interpretation: Positive Thrive Assessment: Date of Thrive Assessment Date Thrive assessed 02/28/25 02/28/25 08:55 Currently or been in a relationship where the following occur: I choose not to answer Const General: no acute distress Nutritional Appearance: cachectic and underweight Limitations: ambulation with walker Resp Effort & Inspection: normal respiratory effort Auscultation: clear to auscultation bilaterally Cardio Heart sounds: S1 normal heart sound present and S2 normal heart sound present Coding Level of Care Code Est Pt Level 4 (23548) Diagnoses Closed fracture of right hip with routine healing, subsequent encounter S72.001D Encounter type: subsequent encounter Fracture healing: with routine healing Closed fracture of olecranon process of right ulna, initial encounter S52.021A Encounter type: initial encounter Fracture type: closed Malnutrition, unspecified type E46 Malnutrition type: unspecified type Time Spent (min) 20 Assessment & Plan Assessment & Plan (1) Closed fracture of right hip: Code(s): S72.001A - Fracture of unspecified part of neck of right femur, initial encounter for closed fracture Category: Medical Qualifiers: Encounter type: subsequent encounter Fracture healing: with routine healing Qualified Code(s): S72.001D - Fracture of unspecified part of neck of right femur, subsequent encounter for closed fracture with routine healing Plan: Managed by Orthopedics. Continue with PT. (2) Fracture of right olecranon process: Code(s): S52.021A - Displaced fracture of olecranon process without intraarticular extension of right ulna, initial encounter for closed fracture Category: Medical Qualifiers: Encounter type: initial encounter Fracture type: closed Qualified Code(s): S52.021A - Displaced fracture of olecranon process without intraarticular extension of right ulna, initial encounter for closed fracture Plan: Managed by Orthopedics. Continue with PT. (3) Malnutrition: Code(s): E46 - Unspecified protein-calorie malnutrition Category: Medical Qualifiers: Malnutrition type: unspecified type Qualified Code(s): E46 - Unspecified protein-calorie malnutrition Plan: Ordered Ensure High Calorie drinks. Ordered Gonzalez Powder drinks to help promote/prevent skin breakdown. Plan Ordered Ensure High Calorie drinks. Ordered Gonzalez Powder drinks to help promote/prevent skin breakdown. Medications: New [ENSURE HIGH CALORIE] DRINK 8 OZ FOR BREAKFAST, LUNCH AND DINNER. 30 multiple units 0RF E46 - Unspecified protein-calorie malnutrition rrtrrwmp-qvshoshoa-sfqegbx HMB 7-7-1.5 gram (Gonzalez) orally; DIRECTED 180 ea 0RF E46 - Unspecified protein-calorie malnutrition Refilled docusate sodium 100 mg PO BID 90 caps 0RF
[2025-02-28 08:50] VITALS: BP 110/60; TEMP 36.1; BMI 14.5
== END 2025-02-28 09:23 | disposition home or self-care (01) ==
LOC: HO.HMCH 08:38
PROVIDERS: Visit Provider Nurse Practitioner Family
DX: S52.021A Displaced fracture of olecranon process without intraarticular extension of right ulna, initial encounter for closed fracture (principal); S72.001A Fracture of unspecified part of neck of right femur, initial encounter for closed fracture; E46 Unspecified protein-calorie malnutrition

== ENCOUNTER → 2025-02-28 08:37 | Outpatient (BNVA) | payer MEDICARE, SELFPAY | PROVIDERS: Visit Provider Nurse Practitioner Family | DX: S72.001D Fracture of unspecified part of neck of right femur, subsequent encounter for closed fracture with routine healing (principal); S52.021D Displaced fracture of olecranon process without intraarticular extension of right ulna, subsequent encounter for closed fracture with routine healing; E46 Unspecified protein-calorie malnutrition | CPT/HCPCS: 99212 ==

== ENCOUNTER 2025-03-26 14:11 | Outpatient (AMB) | payer MEDICARE, SELFPAY ==
--- OUTSIDE RECORDS SUMMARY | 2025-03-26 14:30 | XMS_ITS ---
Author Organization [facility] Care Team Providers Care Medical Records Clerk Name Role Phone Waqas Love Unavailable Unavailable Leia Mccann Unavailable Unavailable Cindy Thomas Unavailable Allergies and adverse reactions No Known Allergies Care Team Name Role Address Phone Organization Dates Waqas Love PCP [address], [address], [place] (Office): [phone] (Fax): [phone] [facility] 03/13/2023 - 04/21/2023 Leia Mccann [address] [facility] [address], [place], [place], [address], [facility] (Office): [facility] 03/13/2023 - 04/21/2023 [facility] [place] 03/13/2023 - 04/21/2023 Mental Status Section Date Assessment Total Score Description 04/21/2023 CAM 0 No delirium ind icated 03/20/2023 BIMS 13 cognitively int act CAM 0 No delirium ind icated PHQ-9 09 mild depression Problems Problem # Description Date of onset Resolved Date Code CodeSystem Concern Status 1 ACUTE METABOLIC ACIDOSIS 03/13/[address] active 2 ALCOHOL DEPENDENCE, UNCOMPLICATED 03/13/[address] active 3 ALCOHOL USE, UNSPECIFIED WITH WITHDRAWAL, UNSPECIFIED 03/13/[address] active 4 ANEMIA, UNSPECIFIED 03/13/[address] active 5 DYSARTHRIA AND ANARTHRIA 03/13/[address] active 6 ELEVATED WHITE BLOOD CELL COUNT, UNSPECIFIED 03/13/[address] active 7 ESSENTIAL (PRIMARY) HYPERTENSION 03/13/[address] active 8 FRACTURE OF SUPERIOR RIM OF RIGHT PUBIS, SUBSEQUENT ENCOUNTER FOR FRACTURE WITH ROUTINE HEALING 03/13/[address] active 9 GASTRO-ESOPHAGEAL REFLUX DISEASE WITHOUT ESOPHAGITIS 03/13/[address] active 10 GOUT, UNSPECIFIED 03/13/[address] active 11 METABOLIC ENCEPHALOPATHY 03/13/[address] active 12 OTHER ACIDOSIS 03/13/[address] act [place] 13 OTHER SPECIFIED NONINFECTIVE GASTROENTERITIS AND COLITIS 03/13/[address] active 14 UNSPECIFIED FALL, SUBSEQUENT ENCOUNTER 03/13/[address] active 15 UNSPECIFIED FRACTURE OF UPPER END OF RIGHT HUMERUS, SUBSEQUENT ENCOUNTER FOR FRACTURE WITH ROUTINE HEALING 03/13/[address] active Reason for Referral No Reasons for Referral Entered Social History Social History Observation Description Start Date End Date Code Code System Current Smoking Status Tobacco smoking consumption unknown 585920140 SNOMED CT Sex Assigned At Male 1945 40853-1 [facility] Gender Identity Vital Signs Code Code System Vitals Name Values and Units Timing Information 40356-4 LOINC Pain Level Value=0.0 04/23/2023 27708-7 LOINC Weight Value=89.2 Units=Lbs /0 12/2022 9279-1 LOINC Respiratory Rate Value=18.0 Units=/m in 04/16/2023 8462-4 LOINC Blood Pressure-Diastolic Value=77 Un its=mmHg 04/16/2023 8480-6 LOINC Blood Pressure-Systolic Pfhgh=772 Un its=mmHg 04/16/2023 8310-5 LOINC Body Temperature Value=98.1 Units= F 04/16/2023 8867-4 LOINC Heart rate Value=93.0 Units=/min 10/2022 85557-4 [facility] O2 % BldC Oximetry Value=98.0 Units= % 04/16/2023 8302-2 [facility] Height Value=65.0 Units=Inches 03/10/2023
[2025-03-26 14:35] VITALS: BP 120/70; PULSE 88; RESP 18; O2SAT 96; BMI 17.7
--- NOTE | 2025-03-26 14:35 | A.OFFPC_ITS ---
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 ] ferrous sulfate 324 mg PO DAILY naproxen 500 mg PO BID PRN omeprazole 20 mg PO DAILY PNV no.95-ferrous fumarate-FA 28 mg iron- 800 mcg () 1 tab PO DAILY polyethylene glycol 3350 17 grams PO DAILY thiamine mononitrate (vit B1) 100 mg PO DAILY Tobacco use date assessed: 02/28/25 Fall risk assessment: 2 + Falls in past year Last assessed Fall Risk: 03/26/25 Dental Screening Dental Screen Date: 09/18/24 Did you have a dental visit in the last 12 months?: No Did you have a dental problem in the last 6 months where you did not have access to dental care?: No Was dental information given to patient?: No HPI annual exam/abdelrahman Dr bettencourt - cristobal comments HPI Details Patient is presenting for annual physical Dentist: no-reports that have not gone a long time ago; stating the he only has 4 teeth Eye: He has not have on in a long time. His nephew said they will make an appt with Dr. Domingo Griffith: Right: Left: Corrected vision: Reports that he needs glasses but he lossed them STI screening: Colonoscopy: aged out Pap Smer:n/a PHQ-9: Flu:reports that he does not take the flu vaccines COVID: x2 Tdap:reports that he is not sure when he had this done Diet:poor diet, reports that he has no appetite Exercise:reports that he is too weak The patient is an 79-year-old male presenting with anemia, heart failure, and nutritional concerns. The patient has a history of anemia, confirmed through blood work, and is on iron supplementation. He has received intravenous iron therapy but continues to experience fatigue and weakness. Heart failure is a concern, with elevated numbers indicating its presence. The patient reports intermittent dyspnea and difficulty breathing, consistent with heart failure symptoms. Nutritional concerns are significant due to low protein levels and poor appetite. The patient has been advised to consume nutritional supplements like Ensure to improve his protein intake. The patient has a history of gout and arthritis, affecting the joints in his fingers. He is on medication and reports no significant joint pain currently. The patient underwent right hip surgery following a fall, resulting in a right clavicle fracture. He was hospitalized for an extended period and received rehabilitation therapy. He uses a walker for mobility and receives therapy every two days. [facility] Medical History Comminuted fracture of right humerus Screening for hypercholesterolemia Hypertension Gout Hx of essential hypertension Surgical History History of total right hip arthroplasty Family History Mother Ovarian cancer Father Heart attack Social History Household Members: None Housing: Apartment Do you presently have visiting nurse or other home services: No Alcohol intake: current Alcohol intake frequency: a few times a month Alcohol type: beer and hard liquor Comment: COUNTS CORRECT Patient Tobacco Use Status: Former Tobacco user Tobacco use type: Cigarette Cigarette Packs Per Day: 0.25 Cigarettes Per Day: 1 Years Smoked: 55 e-Cigarette/Vaping Use: Never Used Second Hand Smoke Exposure: Yes service: No Current occupational status: retired Cognitive needs: Yes (cane/walker) Hearing needs: No Vision needs: Yes (glasses) Questionnaire PHQ-9 Over the last 2 weeks, how often have you been bothered by any of the following problems? 1. Little interest or pleasure in doing things: not at all 2. Feeling down, depressed, or hopeless: not at all 3. Trouble falling or staying asleep, or sleeping too much: nearly every day 4. Feeling tired or having little energy: not at all 5. Poor appetite or overeating: not at all 6. Feeling bad about yourself - or that you are a failure or have let yourself or your family down: not at all 7. Trouble concentrating on things, such as reading the newspaper or watching television: not at all 8. Moving or speaking so slowly that other people could have noticed. Or the opposite - being so fidgety or restless that you have been moving around a lot more than usual: not at all 9. Thoughts that you would be better off or of hurting yourself in some w ay: not at all Total score: 3 Depression Screening Interpretation: Positive Depression Screening Done: Yes Source: Developed by Drs. King García, Amrita Macdonald, David Larios and colleagues, with an educational marcella from [employer]. Thrive Questionnaire Date Thrive assessed: 02/28/25 I am a: Patient What is your living situation today?: I have a steady place to live Within the past 12 months, did the food you bought not last and you didn't have the money to get more?: I choose not to answer this question Within the past 12 months, did you worry whether your food would run out before you got money to buy more?: Never true Do you have trouble paying for medicines?: No Do you have trouble getting transportation to medical appointments?: No Do you have trouble paying your heating and electricity bill?: No Do you have trouble taking care of your child, family member or friend?: No Do you have trouble with day-to-day activities such as bathing, preparing meals, shopping, managing finances, etc.?: Yes Are you currently unemployed and looking for a job?: Yes Are you interested in more education?: No Please select the resources that you would like help with: None Currently or been in a relationship where the following occur: I choose not to answer THRIVE Score: 0 AUDIT C Alcohol Use Questionnaire (AUDIT-C) 1. How often do you have a drink containing alcohol?: Monthly or less 2. How many drinks containing alcohol do you have on a typical day when you are drinking?: 1 or 2 3. How often do you have six or more drinks on one occasion?: Less than monthly Total Score: 2 SRAVAN-7 AMB Questionnaire SRAVAN-7 Date SRAVAN - 7 assessed: 03/26/25 Feeling nervous, anxious, or on edge: 0 = Not at all Not being able to stop or control worryin = Not at all Worrying too much about different things: 0 = Not at all Trouble relaxin = Not at all Being so restless that it is hard to sit still: 0 = Not at all Becoming easily annoyed or irritable: 0 = Not at all Feeling afraid as if something awful might happen: 0 = Not at all Total SRAVAN-7 score (0-4 normal; 5-9 mild; 10-14 moderate; 15-21 severe): 0 Source: Developed by Drs. King García, Amrita Macdonald, David Larios and colleagues, with an educational marcella from [employer]. Review of Systems Const Reports fatigue, Denies headache(s) and Reports weakness Eyes Denies loss of vision ENT Denies vertigo, Reports dizziness (On and off- upon standing up quickly), Denies headache(s) and Denies sore throat Card Denies chest pain, Denies leg edema, Denies lightheadedness and Reports dyspnea on exertion (With over exertion) Resp Denies cough, Denies hemoptysis, Reports dyspnea on exertion (With over exertion) and Denies wheezing GI Denies abdominal pain, Denies melena, Reports constipation (On and off), Denies diarrhea and Denies vomiting Denies dysuria, Denies urinary frequency and Denies urinary urgency Musc Denies arthralgias, Denies joint swelling, Denies numbness and Denies tingling Neuro Denies Abnormal speech present, Denies behavioral changes, Denies vertigo, Reports dizziness (On and off- upon standing up quickly), Denies headache(s), Denies loss of vision, Denies memory loss, Denies numbness, Denies tingling and Reports weakness Psych Denies anxiety, Denies behavioral changes, Denies depression, Denies memory loss and Denies panic attacks Endo Reports fatigue Galo/Lymph Denies easy bleeding and Denies easy bruising Aller/Immun Denies wheezing Physical exam (Primary Care) Vital Signs: Last Vital Signs Pulse 88 03/26/25 14:35 Resp 18 03/26/25 14:35 BP 120/70 03/26/25 14:35 Pulse Ox 96 03/26/25 14:35 Oxygen Delivery Method Room Air 03/26/25 14:35 BMI result Body Mass Index 17.7 Tobacco/Smoking Status: Tobacco use Status Tobacco use date assessed 02/28/25 03/26/25 14:47 Patient Tobacco Use Status Former Tobacco user 03/26/25 14:47 Tobacco use type Cigarette 03/26/25 14:47 e-Cigarette/Vaping Use Never Used 03/26/25 14:47 PHQ-9: PHQ-9 Score PHQ-9: Total score 3 03/26/25 15:05 Depression Screening Interpretation: Positive Thrive Assessment: Date of Thrive Assessment Date Thrive assessed 02/28/25 03/26/25 14:47 Currently or been in a relationship where the following occur: I choose not to answer Const General: no acute distress, alert and awake Nutritional Appearance: malnourished and thin Orientation/consciousness: oriented to person, oriented to place and oriented to time HENMT Ears: TM's normal bilaterally General nose exam: Normal nasal mucous membranes and turbinates present Eyes Conjunctivae: conjunctivae normal Sclerae: sclerae normal Pupils: Equal, round and reactive pupils present Neck Neck: Yes no lymphadenopathy and Yes no JVD Thyroid: Thyroid normal Carotids: no bruits Resp Effort & Inspection: normal respiratory effort and not tachypneic Auscultation: no crackles, no rales, no rhonchi and no wheezes Cardio Rate: regular rate Rhythm: regular rhythm Heart sounds: no murmurs and normal S1 and S2 GI Palpation (GI): Soft to palpation, nontender, no hepatomegaly and no splenomegaly Auscultation: normal bowel sounds General: Yes no CVA tenderness Back/Spine/Pelvis Back: no CVA tenderness Thoracic/Lumbar Spine: thoracic and lumbar spine normal to inspection Skin General skin exam: no rashes or lesions noted and dry skin Neuro General: oriented to person, oriented to place and oriented to time Cranial nerves: Yes Equal, round and reactive pupils present Speech: No Abnormal speech present Gait exam (Neuro): Assisted gait required Gait assisted method: walker and Other gait observations present (Weakness) Motor exam (neuro): no tremor noted Extrem Right upper extremity: full ROM and Extremity exam: right hand (fingers joints deformed) Left upper extremity: full ROM and hand (finger joints are deformed) Right lower extremity: full ROM; no edema Left lower extremity: full ROM; no edema Psych Mental Status: mental status grossly normal Speech and movement: Normal speech and movement present Affect: normal affect Attitude: cooperative Thought process: Normal thought process present Coding Level of Care Code Est Pt Prev Care >65y(26815) Diagnoses Physical exam Z00.00 Chronic GERD K21.9 Malnutrition, unspecified type E46 Malnutrition type: unspecified type Hypertension, unspecified type I10 Hypertension type: unspecified Alcohol use disorder, mild, abuse F10.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, unspecified site [id number].[id number] Gout site: unspecified site Gout etiology: idiopathic Chronicity: chronic Presence of tophus: without tophus Closed fracture of olecranon process of right ulna, initial encounter S52.021A Encounter type: initial encounter Fracture type: closed Closed nondisplaced fracture of right clavicle with routine healing, unspecified part of clavicle, subsequent encounter S42.001D Encounter type: subsequent encounter Clavicle location: unspecified part of clavicle Fracture type: closed Fracture alignment: nondisplaced Fracture healing: with routine healing Closed fracture of right hip with routine healing, subsequent encounter S72.001D Encounter type: subsequent encounter Fracture healing: with routine healing Closed fracture of right inferior pubic ramus with routine healing, subsequent encounter S32.591D Encounter type: subsequent encounter Fracture type: closed Fracture healing: with routine healing Closed fracture of superior ramus of right pubis with routine healing, subsequent encounter S32.511D Encounter type: subsequent encounter Fracture type: closed Fracture healing: with routine healing Fall, subsequent encounter W19.XXXD Encounter type: subsequent encounter Time Spent (min) 43 Assessment & Plan Assessment & Plan (1) Physical exam: Code(s): Z00.00 - Encounter for general adult medical examination without abnormal findings Category: Medical Plan: 79-year-old gentleman coming in for physical today. Appears malnourished. Reports poor appetite. Denies up-to-date dental evaluation or eye exam. Plans to make an appointment with Dr. Lane. Reports that he is supposed to wear glasses but he misplaced them. Unsure of last tetanus vaccine, but does not wants to get this done. (2) Chronic GERD: Code(s): K21.9 - Gastro-esophageal reflux disease without esophagitis Category: Medical Plan: Do not eat meals or drink carbonated beverages within 3 hr of bedtime Decrease the amount of fried, fatty, and spicy foods to decrease gastric acid production Raise the head of the bed using 4 to 6-inch blocks, especially if nocturnal symptoms are present Lose weight if indicated; avoid tight-fitting clothing, especially around the waist Avoid foods that relax the Lower esophageal sphincter (chocolate, peppermint, high-fat foods etc.,) Continue omeprazole 20 mg daily (3) Malnutrition: Code(s): E46 - Unspecified protein-calorie malnutrition Category: Medical Qualifiers: Malnutrition type: unspecified type Qualified Code(s): E46 - Unspecified protein-calorie malnutrition Plan: Patient appears well-nourished. This nephew reports that the patient isn't eating much of anything and would like to see if the patient could have some form of supplements We will order ensure plus (4) Hypertension: Comment: 20 min reviewing chart evaluating patient and documenting; hold rx Code(s): I10 - Essential (primary) hypertension Category: Medical Qualifiers: Hypertension type: unspecified Qualified Code(s): I10 - Essential (primary) hypertension Plan: Blood pressure within normal limits in office Reinforced low-salt diet (5) Alcohol use disorder, mild, abuse: Code(s): F10.10 - Alcohol abuse, uncomplicated Category: Medical Plan: Encouraged cessation (6) Gout: Code(s): M10.9 - Gout, unspecified Category: Medical Qualifiers: Gout site: unspecified site Gout etiology: idiopathic Chronicity: chronic Presence of tophus: without tophus Qualified Code(s): M1A.00X0 - Id iopathic chronic gout, unspecified site, without tophus (tophi) Plan: Denies joints pain Continue allopurinol 300 mg daily (7) Fracture of right olecranon process: Code(s): S52.021A - Displaced fracture of olecranon process without intraarticular extension of right ulna, initial encounter for closed fracture Category: Medical Qualifiers: Encounter type: initial encounter Fracture type: closed Qualified Code(s): S52.021A - Displaced fracture of olecranon process without intraarticular extension of right ulna, initial encounter for closed fracture Plan: Non operation treatment. Plans to use arm as tolerated however no lifting. He should not forced his range of motion beyond his baseline. Follow up with Orthopedics as scheduled (8) Right clavicle fracture: Code(s): S42.001A - Fracture of unspecified part of right clavicle, initial encounter for closed fracture Category: Medical Qualifiers: Encounter type: subsequent encounter Clavicle location: unspecified part of clavicle Fracture type: closed Fracture alignment: nondisplaced Fracture healing: with routine healing Qualified Code(s): S42.001D - Fracture of unspecified part of right clavicle, subsequent encounter for fracture with routine healing Plan: Patient had a clavicle fracture to conservative management. He should work with physical therapy for scapular and posterior all training. (9) Closed fracture of right hip: Code(s): S72.001A - Fracture of unspecified part of neck of right femur, initial encounter for closed fracture Category: Medical Qualifiers: Encounter type: subsequent encounter Fracture healing: with routine healing Qualified Code(s): S72.001D - Fracture of unspecified part of neck of right femur, subsequent encounter for closed fracture with routine healing Plan: right hip lisseth on 12/21/[address] Alejandro. Patient reports that he struggles to walk and that he drags his leg. He continues working with at home therapy. (10) Fracture of right inferior pubic ramus: Code(s): S32.591A - Other specified fracture of right pubis, initial encounter for closed fracture Category: Medical Qualifiers: Encounter type: subsequent encounter Fracture type: closed Fracture healing: with routine healing Qualified Code(s): S32.591D - Other specified fracture of right pubis, subsequent encounter for fracture with routine healing Plan: Right neck of femoral close fracture. Continue physical and occupational therapy for gait training strengthening and ADLs. (11) Fracture of right superior pubic ramus: Code(s): S32.511A - Fracture of superior rim of right pubis, initial encounter for closed fracture Category: Medical Qualifiers: Encounter type: subsequent encounter Fracture type: closed Fracture healing: with routine healing Qualified Code(s): S32.511D - Fracture of superior rim of right pubis, subsequent encounter for fracture with routine healing Plan: Right pubis fracture weight-bearing as tolerated. Continue home physical therapy (12) Fall: Code(s): W19.XXXA - Unspecified fall, initial encounter Category: Medical Qualifiers: Encounter type: subsequent encounter Qualified Code(s): W19.XXXD - Unspecified fall, subsequent encounter Plan: Status post fall on 12/19/2024. That resulted with multiple fractures the right side. Patient underwent surgical procedure and is still working with PT and OT for gait training in ADLs Orders: Orders Lipid Panel 3 Months E46 - Unspecified protein-calorie malnutrition, F10.10 - Alcohol abuse, uncomplicated, I10 - Essential (primary) hypertension, K21.9 - Gastro-esophageal reflux disease without esophagitis, R79.89 - Other specified abnormal findings of blood chemistry, Z13.220 - Encounter for screening for lipoid disorders B Type Natriuretic Peptide 3 Months E46 - Unspecified protein-calorie malnutrition, F10.10 - Alcohol abuse, uncomplicated, I10 - Essential (primary) hypertension, K21.9 - Gastro-esophageal reflux disease without esophagitis, R79.89 - Other specified abnormal findings of blood chemistry, Z13.220 - Encounter for screening for lipoid disorders Complete Blood Count Auto Diff 3 Months E46 - Unspecified protein-calorie malnutrition, F10.10 - Alcohol abuse, uncomplicated, I10 - Essential (primary) hypertension, K21.9 - Gastro-esophageal reflux disease without esophagitis, R79.89 - Other specified abnormal findings of blood chemistry, Z13.220 - Encounter for screening for lipoid disorders Comprehensive [place]. Panel Fast 3 Months E46 - Unspecified protein-calorie malnutrition, F10.10 - Alcohol abuse, uncomplicated, I10 - Essential (primary) hypertension, K21.9 - Gastro-esophageal reflux disease without esophagitis, R79.89 - Other specified abnormal findings of blood chemistry, Z13.220 - Encounter for screening for lipoid disorders IRON PROFILE 3 Months E46 - Unspecified protein-calorie malnutrition, F10.10 - Alcohol abuse, uncomplicated, I10 - Essential (primary) hypertension, K21.9 - Gastro-esophageal reflux disease without esophagitis, R79.89 - Other specified abnormal findings of blood chemistry, Z13.220 - Encounter for screening for lipoid disorders TSH reflex Free T4 3 Months E46 - Unspecified protein-calorie malnutrition, F10.10 - Alcohol abuse, uncomplicated, I10 - Essential (primary) hypertension, K21.9 - Gastro-esophageal reflux disease without esophagitis, R79.89 - Other specified abnormal findings of blood chemistry, Z13.220 - Encounter for screening for lipoid disorders UA CC w/rflx Micro + Cult 3 Months E46 - Unspecified protein-calorie malnutrition, F10.10 - Alcohol abuse, uncomplicated, I10 - Essential (primary) hypertension, K21.9 - Gastro-esophageal reflux disease without esophagitis, R79.89 - Other specified abnormal findings of blood chemistry, Z13.220 - Encounter for screening for lipoid disorders Vitamin D 25-OH Total 3 Months E46 - Unspecified protein-calorie malnutrition, F10.10 - Alcohol abuse, uncomplicated, I10 - Essential (primary) hypertension, K21.9 - Gastro-esophageal reflux disease without esophagitis, R79.89 - Other specified abnormal findings of blood chemistry, Z13.220 - Encounter for screening for lipoid disorders Vitamin B12 and Folate 3 Months E46 - Unspecified protein-calorie malnutrition, F10.10 - Alcohol abuse, uncomplicated, I10 - Essential (primary) hypertension, K21.9 - Gastro-esophageal reflux disease without esophagitis, R79.89 - Other specified abnormal findings of blood chemistry, Z13.220 - Encounter for screening for lipoid disorders Medications: New [Ensure plus] As directed Take drink 1 ensure plus 6 times a day to substitute for small meals 540 ea 3RF E46 - Unspecified protein-calorie malnutrition Refilled polyethylene glycol 3350 17 grams PO DAILY 30 ea 3RF
== END 2025-03-26 15:22 | disposition home or self-care (01) ==
LOC: HO.HMCH 14:12
DX: Z00.00 Encounter for general adult medical examination without abnormal findings (principal); K21.9 Gastro-esophageal reflux disease without esophagitis; E46 Unspecified protein-calorie malnutrition; I10 Essential (primary) hypertension; F10.10 Alcohol abuse, uncomplicated; M1A.00X0 Idiopathic chronic gout, unspecified site, without tophus (tophi); S52.021A Displaced fracture of olecranon process without intraarticular extension of right ulna, initial encounter for closed fracture; S42.001D Fracture of unspecified part of right clavicle, subsequent encounter for fracture with routine healing; S72.001D Fracture of unspecified part of neck of right femur, subsequent encounter for closed fracture with routine healing; S32.591D Other specified fracture of right pubis, subsequent encounter for fracture with routine healing; S32.511D Fracture of superior rim of right pubis, subsequent encounter for fracture with routine healing; W19.XXXD Unspecified fall, subsequent encounter

== ENCOUNTER → 2025-03-26 14:11 | Outpatient (BNVA) | payer MEDICARE, MEDICAID, SELFPAY | DX: Z00.00 Encounter for general adult medical examination without abnormal findings (principal); K21.9 Gastro-esophageal reflux disease without esophagitis; E46 Unspecified protein-calorie malnutrition; I10 Essential (primary) hypertension; F10.10 Alcohol abuse, uncomplicated; M1A.00X0 Idiopathic chronic gout, unspecified site, without tophus (tophi); S42.001D Fracture of unspecified part of right clavicle, subsequent encounter for fracture with routine healing; S52.021D Displaced fracture of olecranon process without intraarticular extension of right ulna, subsequent encounter for closed fracture with routine healing; S72.001D Fracture of unspecified part of neck of right femur, subsequent encounter for closed fracture with routine healing; S32.511D Fracture of superior rim of right pubis, subsequent encounter for fracture with routine healing; Z91.81 History of falling | CPT/HCPCS: 99397 ==

== ENCOUNTER 2025-04-02 08:45 | Outpatient (REF) | payer MEDICARE, SELFPAY ==
--- NOTE | ~2025-04-02 | XR_ITS ---
EXAMINATION: XR HIP, RIGHT CLINICAL INFORMATION: M25.551 - Pain in right hip COMPARISON: February 13, 2025 TECHNIQUE: AP and cross lateral view of the right hip. AP pelvis. FINDINGS: Total right hip arthroplasty prosthesis well-seated in the osseous acetabulum and proximal femur without gross malalignment. No gross loosening. Sclerosis within the fracture of the superior right pubic ramus/symphysis pubis junction. Osteopenia versus osteoporosis. Calcified plaques in the abdominal aorta iliac arteries. S-shaped curvature of the lumbar spine. Vascular calcifications in the upper thighs. XR/XR hip RT min 2V IMPRESSION: Intact right hip arthroplasty prosthesis without malalignment or gross loosening. Healing fractures, right hemipelvis. Electronically signed by: Marcio Higgins MD 04/02/2025 01:34 PM EDT
== END 2025-04-02 08:46 | disposition home or self-care (01) ==
LOC: HO.HOSX 08:45
PROVIDERS: Visit Provider Physician Assistant
DX: S52.021D Displaced fracture of olecranon process without intraarticular extension of right ulna, subsequent encounter for closed fracture with routine healing (principal); S42.001D Fracture of unspecified part of right clavicle, subsequent encounter for fracture with routine healing; S72.001D Fracture of unspecified part of neck of right femur, subsequent encounter for closed fracture with routine healing; S32.591D Other specified fracture of right pubis, subsequent encounter for fracture with routine healing; S32.511D Fracture of superior rim of right pubis, subsequent encounter for fracture with routine healing; Z79.899 Other long term (current) drug therapy; M25.551 Pain in right hip; X58.XXXD Exposure to other specified factors, subsequent encounter
CPT/HCPCS: 73502; 99212

== ENCOUNTER 2025-04-02 12:46 | Outpatient (AMB) | payer MEDICARE, MEDICAID, SELFPAY ==
--- NOTE | 2025-04-02 12:57 | MHC.OFFVIS ---
Vital Signs 04/02/25 13:03 Height 5 ft 3 in Weight 99 lb BMI 17.5 Intake Visit Reasons: OV- right hip lisseth DOS 12/21/24 w/DR Intake Note: Rikki is an 79 year old male who presents today for a follow up status post right hip lisseth, DOS 12/21/[address] Alejandro. At his last visit he was instructed to follow up in 8 weeks with routine x-rays. Patient reports his hip is doing well, no complaints. However he complains right arm pain, as well as limited ROM. He continues to work with at home therapy. Allergies No Known Allergies (No Known Allergies*) Allergy (Verified 04/02/25 13:01) Medication List - Last Reconciled 04/02/25 by Angelic Evans PA-C allopurinol 300 mg PO DAILY cukjcogl-avbnrgyrp-zfhphfr HMB 7-7-1.5 gram (Gonzalez) orally; DIRECTED bisacodyl (Gentle Laxative (bisacodyl)) 10 mg CO BEDTIME docusate sodium 100 mg PO BID [ENSURE HIGH CALORIE DRINK 8 OZ FOR BREAKFAST, LUNCH AND DINNER. ] [Ensure plus As directed Take drink 1 ensure plus 6 times a day to substitute for small meals] ferrous sulfate 324 mg PO DAILY naproxen 500 mg PO BID PRN omeprazole 20 mg PO DAILY PNV no.95-ferrous fumarate-FA 28 mg iron- 800 mcg () 1 tab PO DAILY polyethylene glycol 3350 17 grams PO DAILY thiamine mononitrate (vit B1) 100 mg PO DAILY HPI HPI OV- right hip lisseth DOS 12/21/24 w/DR: Details: 79-year-old gentleman presents to the office today for a follow-up right hip hemiarthroplasty on 12/21/2024. The patient states he is doing well and ambulates with a walker. He continues to have some mild discomfort in the right upper extremity but mostly from limited range of motion. He continues to work with physical therapy. COUNTS INCLUDE 234 BEDS AT THE [facility] Medical History Comminuted fracture of right humerus Screening for hypercholesterolemia Hypertension Gout Hx of essential hypertension Surgical History History of total right hip arthroplasty Family History Mother Ovarian cancer Father Heart attack Social History Household Members: None Housing: Apartment Do you presently have visiting nurse or other home services: No Alcohol intake: current Alcohol intake frequency: a few times a month Alcohol type: beer and hard liquor Comment: COUNTS CORRECT Patient Tobacco Use Status: Former Tobacco user Tobacco use type: Cigarette Cigarette Packs Per Day: 0.25 Cigarettes Per Day: 1 Years Smoked: 55 e-Cigarette/Vaping Use: Never Used Second Hand Smoke Exposure: Yes service: No Current occupational status: retired Cognitive needs: Yes (cane/walker) Hearing needs: No Vision needs: Yes (glasses) Review of Systems Const All systems reviewed & are unremarkable except as noted in HPI and below Physical Exam Vital Signs: BMI result Body Mass Index 17.5 Extrem Other: Right hip incision well healed. He has no pain with range of motion or hip flexion. Good range of motion of the knee without pain. Calf supple and nontender neurovascularly intact. Right elbow skin is intact. No ecchymosis. No tenderness to palpation over the olecranon. He can flex to 90 degrees or neutral. Extension lacking 15 degrees. Neurovascularly intact Right clavicle skin is intact. No tenting. No tenderness to palpation along the clavicle. Results Reviewed Results Reviewed: X-rays of the right hip obtained in the office today show an intact hip prosthesis. Stable pubic rami fracture. Assessment & Plan Assessment & Plan (1) Fracture of right olecranon process: Code(s): S52.021A - Displaced fracture of olecranon process without intraarticular extension of right ulna, initial encounter for closed fracture Category: Medical Qualifiers: Encounter type: initial encounter Fracture type: closed Qualified Code(s): S52.021A - Displaced fracture of olecranon process without intraarticular extension of right ulna, initial encounter for closed fracture (2) Right clavicle fracture: Code(s): S42.001A - Fracture of unspecified part of right clavicle, initial encounter for closed fracture Category: Medical Qualifiers: Encounter type: subsequent encounter Clavicle location: unspecified part of clavicle Fracture type: closed Fracture alignment: nondisplaced Fracture healing: with routine healing Qualified Code(s): S42.001D - Fracture of unspecified part of right clavicle, subsequent encounter for fracture with routine healing (3) Closed fracture of right hip: Code(s): S72.001A - Fracture of unspecified part of neck of right femur, initial encounter for closed fracture Category: Medical Qualifiers: Encounter type: subsequent encounter Fracture healing: with routine healing Qualified Code(s): S72.001D - Fracture of unspecified part of neck of right femur, subsequent encounter for closed fracture with routine healing (4) Fracture of right inferior pubic ramus: Code(s): S32.591A - Other specified fracture of right pubis, initial encounter for closed fracture Category: Medical Qualifiers: Encounter type: subsequent encounter Fracture type: closed Fracture healing: with routine healing Qualified Code(s): S32.591D - Other specified fracture of right pubis, subsequent encounter for fracture with routine healing (5) Fracture of right superior pubic ramus: Code(s): S32.511A - Fracture of superior rim of right pubis, initial encounter for closed fracture Category: Medical Qualifiers: Encounter type: subsequent encounter Fracture type: closed Fracture healing: with routine healing Qualified Code(s): S32.511D - Fracture of superior rim of right pubis, subsequent encounter for fracture with routine healing Plan Patient will continue with activities as tolerated. I encouraged him to continue working with physical therapy to improve his function. If there is any concerns or questions she will contact our office otherwise follow up as needed. Orders: Orders XR hip RT min 2V Today M25.551 - Pain in right hip Coding Level of Care Code Est Pt Level 3 (85811) Complex EM visit Add On G2211 Diagnoses Closed fracture of olecranon process of right ulna, initial encounter S52.021A Encounter type: initial encounter Fracture type: closed Closed nondisplaced fracture of right clavicle with routine healing, unspecified part of clavicle, subsequent encounter S42.001D Encounter type: subsequent encounter Clavicle location: unspecified part of clavicle Fracture type: closed Fracture alignment: nondisplaced Fracture healing: with routine healing Closed fracture of right hip with routine healing, subsequent encounter S72.001D Encounter type: subsequent encounter Fracture healing: with routine healing Closed fracture of right inferior pubic ramus with routine healing, subsequent encounter S32.591D Encounter type: subsequent encounter Fracture type: closed Fracture healing: with routine healing Closed fracture of superior ramus of right pubis with routine healing, subsequent encounter S32.674D Encounter type: subsequent encounter Fracture type: closed Fracture healing: with routine healing
[2025-04-02 13:03] VITALS: BMI 17.5
== END 2025-04-02 13:21 | disposition home or self-care (01) ==
LOC: HO.HOS 12:47
PROVIDERS: Visit Provider Physician Assistant
DX: S52.021A Displaced fracture of olecranon process without intraarticular extension of right ulna, initial encounter for closed fracture (principal); S42.001D Fracture of unspecified part of right clavicle, subsequent encounter for fracture with routine healing; S72.001D Fracture of unspecified part of neck of right femur, subsequent encounter for closed fracture with routine healing; S32.591D Other specified fracture of right pubis, subsequent encounter for fracture with routine healing; S32.511D Fracture of superior rim of right pubis, subsequent encounter for fracture with routine healing
CPT/HCPCS: 99213; G2211

== ENCOUNTER → 2025-04-02 12:51 | Outpatient (BNV) | payer MEDICARE, SELFPAY | PROVIDERS: Visit Provider Radiology Diagnostic Radiology | DX: Z96.641 Presence of right artificial hip joint (principal) | CPT/HCPCS: 73502 ==

== ENCOUNTER 2025-04-25 08:58 | Outpatient (AMB) | payer MEDICARE, MEDICAID, SELFPAY ==
--- NOTE | 2025-04-25 09:00 | MHC.PC.OV ---
Vital Signs 04/25/25 09:01 Height 5 ft 3 in Weight 81 lb 12.664 oz BMI 14.5 BP 110/72 Blood Pressure Location Lt brachial Position Sitting Respiration 18 Pulse 86 Pulse Source Pulse Oximeter Temp 97.1 F Temp Source Temporal Artery Scan Pulse Oximetry (%) 96 Oxygen Delivery Method Room Air Intake Visit Reasons: pain both sides of lower back and weight loss. 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 ] [Ensure plus As directed Take drink 1 ensure plus 6 times a day to substitute for small meals] ferrous sulfate 324 mg PO DAILY naproxen 500 mg PO BID PRN omeprazole 20 mg PO DAILY polyethylene glycol 3350 17 grams PO DAILY Tobacco use date assessed: 04/25/25 Fall risk assessment: 1 Fall in past year Last assessed Fall Risk: 04/25/25 Dental Screening Dental Screen Date: 04/25/25 Did you have a dental visit in the last 12 months?: No Did you have a dental problem in the last 6 months where you did not have access to dental care?: No Was dental information given to patient?: No HPI pain both sides of lower back and weight loss. HPI Details The patient is an 79-year-old male presenting with back pain. The back pain is described as originating from a previous fracture and is located in the lower back, extending to the side and ribs. The pain has been persistent, and the patient reports that the current medication, Naproxen, is not providing sufficient relief. The patient also mentioned concerns about the pain potentially being related to kidney issues, as suggested by a counselor or therapist. There is no reported numbness or tingling in the legs, and the patient denies any urinary symptoms such as blood in the urine. No flank tenderness on exam. Patient also has gradually lost weight and was prescribed ensure supplement on his last visit though he has not received this as yet. We will call the supplier and re-fax the order. [facility] Medical History Comminuted fracture of right humerus Screening for hypercholesterolemia Hypertension Gout Hx of essential hypertension Surgical History History of total right hip arthroplasty Family History Mother Ovarian cancer Father Heart attack Social History Household Members: None Housing: Apartment Do you presently have visiting nurse or other home services: No Alcohol intake: current Alcohol intake frequency: a few times a month Alcohol type: beer and hard liquor Comment: COUNTS CORRECT Patient Tobacco Use Status: Former Tobacco user Tobacco use type: Cigarette Cigarette Packs Per Day: 0.25 Cigarettes Per Day: 1 Years Smoked: 55 e-Cigarette/Vaping Use: Never Used Second Hand Smoke Exposure: Yes service: No Current occupational status: retired Cognitive needs: Yes (cane/walker) Hearing needs: No Vision needs: Yes (glasses) Questionnaire PHQ-9 Over the last 2 weeks, how often have you been bothered by any of the following problems? 1. Little interest or pleasure in doing things: not at all 2. Feeling down, depressed, or hopeless: not at all 3. Trouble falling or staying asleep, or sleeping too much: nearly every day 4. Feeling tired or having little energy: not at all 5. Poor appetite or overeating: not at all 6. Feeling bad about yourself - or that you are a failure or have let yourself or your family down: not at all 7. Trouble concentrating on things, such as reading the newspaper or watching television: not at all 8. Moving or speaking so slowly that other people could have noticed. Or the opposite - being so fidgety or restless that you have been moving around a lot more than usual: not at all 9. Thoughts that you would be better off or of hurting yourself in some way: not at all Total score: 3 Depression Screening Interpretation: Positive Depression Screening Done: Yes Source: Developed by Drs. King García, Amrita Macdonald, David Larios and colleagues, with an educational marcella from [employer]. Thrive Questionnaire Date Thrive assessed: 04/25/25 I am a: Patient What is your living situation today?: I have a steady place to live Within the past 12 months, did the food you bought not last and you didn't have the money to get more?: I choose not to answer this question Within the past 12 months, did you worry whether your food would run out before you got money to buy more?: Never true Do you have trouble paying for medicines?: No Do you have trouble getting transportation to medical appointments?: No Do you have trouble paying your heating and electricity bill?: No Do you have trouble taking care of your child, family member or friend?: No Do you have trouble with day-to-day activities such as bathing, preparing meals, shopping, managing finances, etc.?: Yes Are you currently unemployed and looking for a job?: Yes Are you interested in more education?: No Please select the resources that you would like help with: None Currently or been in a relationship where the following occur: I choose not to answer THRIVE Score: 0 AUDIT C Alcohol Use Questionnaire (AUDIT-C) 1. How often do you have a drink containing alcohol?: Monthly or less 2. How many drinks containing alcohol do you have on a typical day when you are drinking?: 1 or 2 3. How often do you have six or more drinks on one occasion?: Less than monthly Total Score: 2 SRAVAN-7 AMB Questionnaire SRAVAN-7 Date SRAVAN - 7 assessed: 04/25/25 Feeling nervous, anxious, or on edge: 0 = Not at all Not being able to stop or control worryin = Not at all Worrying too much about different things: 0 = Not at all Trouble relaxin = Not at all Being so restless that it is hard to sit still: 0 = Not at all Becoming easily annoyed or irritable: 0 = Not at all Feeling afraid as if something awful might happen: 0 = Not at all Total SRAVAN-7 score (0-4 normal; 5-9 mild; 10-14 moderate; 15-21 severe): 0 Source: Developed by Amrita Dumas. Torres, David Larios and colleagues, with an educational marcella from [employer]. Review of Systems Const Denies body aches, Denies chills, Denies fever(s), Denies headache(s), Denies poor appetite, Reports weakness and Reports weight loss Eyes Reports no additional complaints ENT Denies dysphagia, Denies dizziness, Denies headache(s) and Denies odynophagia Card Denies chest pain, Denies syncope, Denies edema, Denies irregular heart rhythm, Denies lightheadedness and Denies dyspnea Resp Denies cough and Denies dyspnea GI Denies abdominal pain, Denies constipation, Denies dysphagia, Denies diarrhea, Denies nausea, Denies odynophagia and Denies vomiting Reports no additional complaints Musc Reports back pain Skin/Breast Reports system reviewed and no additional complaints, except as documented Neuro Denies dizziness, Denies syncope, Denies headache(s) and Reports weakness Psych Reports no additional complaints Physical exam (Primary Care) Vital Signs: Last Vital Signs Temp 97.1 F 04/25/25 09:01 Pulse 86 04/25/25 09:01 Resp 18 04/25/25 09:01 BP 110/72 04/25/25 09:01 Pulse Ox 96 04/25/25 09:01 Oxygen Delivery Method Room Air 04/25/25 09:01 BMI result Body Mass Index 14.5 Tobacco/Smoking Status: Tobacco use Status Tobacco use date assessed 04/25/25 04/25/25 09:06 Patient Tobacco Use Status Former Tobacco user 04/25/25 09:06 Tobacco use type Cigarette 04/25/25 09:06 e-Cigarette/Vaping Use Never Used 04/25/25 09:06 PHQ-9: PHQ-9 Score PHQ-9: Total score 3 04/25/25 09:14 Depression Screening Interpretation: Positive Thrive Assessment: Date of Thrive Assessment Date Thrive assessed 04/25/25 04/25/25 09:06 Currently or been in a relationship where the following occur: I choose not to answer Const General: cooperative, healthy appearing, comfortable and no acute distress Orientation/consciousness: patient oriented x3 HENMT Head: Yes normocephalic Ears: hearing grossly normal bilaterally General nose exam: Normal external nose present Eyes General: appearance normal, both eyes and all related structures Conjunctivae: conjunctivae normal Neck Neck: Yes full ROM and Yes no lymphadenopathy Resp Effort & Inspection: normal respiratory effort Auscultation: clear to auscultation bilaterally, no crackles, no rales, no rhonchi and no wheezes Cardio Rate: regular rate Rhythm: regular rhythm General: Yes no CVA tenderness Back/Spine/Pelvis Back: no CVA tenderness Thoracic/Lumbar Spine: lumbar spinal tenderness Skin General skin exam: no rashes or lesions noted Neuro General: patient oriented x3 Gait exam (Neuro): Normal gait present Extrem General: Yes normal to inspection, Yes full ROM and No edema Psych Affect: normal affect Attitude: cooperative Insight: Good insight present (Psych) Judgement: Good judgement present (Psych) Coding Level of Care Code Est Pt Level 3 (32700) Diagnoses Left-sided low back pain without sciatica, unspecified chronicity M54.50 Chronicity: unspecified Back pain laterality: left Sciatica presence: without sciatica Malnutrition, unspecified type E46 Malnutrition type: unspecified type Time Spent (min) 29 Assessment & Plan Assessment & Plan (1) Low back pain: Code(s): M54.50 - Low back pain, unspecified Category: Medical Qualifiers: Chronicity: unspecified Back pain laterality: left Sciatica presence: without sciatica Qualified Code(s): M54.50 - Low back pain, unspecified Plan: The patient will be prescribed Celecoxib as a stronger alternative to Naproxen for pain management. An x-ray of the back has been ordered to further investigate the cause of the pain. Attempted to have the patient do a urinalysis in office when he was unable to urinate due to using the bathroom prior to his visit. UA ordered as part of the workup. (2) Malnutrition: Code(s): E46 - Unspecified protein-calorie malnutrition Category: Medical Qualifiers: Malnutrition type: unspecified type Qualified Code(s): E46 - Unspecified protein-calorie malnutrition Plan: Ensure ordered was referred faxed to [facility] and the patient was given the script as well. Staff member also called to make sure the ordered was received. Orders: Orders XR lumbar spine 2-3V Today M54.50 - Low back pain, unspecified UA CC w/rflx Micro + Cult Today M54.50 - Low back pain, unspecified Medications: New celecoxib (Celebrex) 200 mg PO BID PRN 60 caps 1RF pain Refilled [Ensure plus] As directed Take drink 1 ensure plus 6 times a day to substitute for small meals 540 ea 3RF E46 - Unspecified protein-calorie malnutrition
[2025-04-25 09:01] VITALS: BP 110/72; PULSE 86; RESP 18; TEMP 36.2; O2SAT 96; BMI 14.5
== END 2025-04-25 09:37 | disposition home or self-care (01) ==
LOC: HO.HMCH 08:58
DX: M54.50 Low back pain, unspecified (principal); E46 Unspecified protein-calorie malnutrition

== ENCOUNTER → 2025-04-25 08:58 | Outpatient (BNVA) | payer MEDICARE, MEDICAID, SELFPAY | DX: M54.50 Low back pain, unspecified (principal); E46 Unspecified protein-calorie malnutrition; Z87.891 Personal history of nicotine dependence | CPT/HCPCS: 99212 ==

== ENCOUNTER 2025-06-19 09:22 | Outpatient (REF) | payer MEDICARE, MEDICAID, SELFPAY ==
[2025-06-19 10:35] LABS: MANUAL DIFF FLAG NO
[2025-06-19 10:39] LABS: Hematocrit 36.3 % (42.0-52.0); Hemoglobin 12.2 g/dl (14.0-18.0); Imm Gran Abs Auto 0.02 X10*3/uL (0.00-0.03); Imm Gran Pct Auto 0.2 % (0.0-0.4); Lymphocytes Absolute Auto 2.5 X10*3/uL (1.2-4.9); Mean Corpuscular HGB Conc 33.6 g/dl (31.0-36.0); Mean Corpuscular Hemoglobin 30.8 pg (27.0-33.0); Mean Corpuscular Volume 91.7 fL (80.0-98.0); Platelet Count 212 X10*3/uL (160-400); Red Blood Count 3.96 X10*6/uL (4.60-5.80); White Blood Count 9.7 X10*3/uL (4.8-10.8)
[2025-06-19 10:59] LABS: Alanine Aminotransferase 25 U/L (0-40); Albumin Level 4.0 g/dL (3.5-5.0); Alkaline Phosphatase 115 U/L (39-117); Anion Gap 15 (12-20); Aspartate Amino Transferase 38 U/L (5-37); Blood Urea Nitrogen 45 mg/dL (9-16); Calcium 9.3 mg/dL (8.4-10.2); Carbon Dioxide 25 mmol/L (22-29); Chloride 107 mmol/L (96-108); Cholesterol 133 mg/dL (<200); Estimated Glomerular Filt Rate 55; HDL Cholesterol 60 mg/dL (>40); Iron 91 mcg/dL (45-160); Percent Iron Saturation 44 % (15-50); Potassium 4.5 mmol/L (3.3-5.1); Sodium 142 mmol/L (135-145); Total Iron Binding Capacity 208 mcg/dL (228-428); Total Protein 6.8 g/dL (6.5-8.0); Triglycerides 97 mg/dL (<150); Unsaturated Iron Binding 117 ug/dL
[2025-06-19 11:00] LABS: Appearance Urine Clear; Glucose Urine UA Negative (Negative); PH 5.5 (5.0-9.0); Specific Gravity - Urine 1.020 (1.005-1.025); UMIC TRIGGER UACC YES
[2025-06-19 11:30] LABS: Folate 13.4 ng/mL (> or = 4.0); Vitamin B12 > 2000 pg/mL (200-900)
[2025-06-19 15:10] LABS: NRBC Abs Auto 0.000 X10*3/uL (0.0-0.012); NRBC Pct Auto 0.0 /100WBC (0.0-0.2)
== END 2025-06-19 09:23 | disposition home or self-care (01) ==
LOC: HO.10HDL 09:22
DX: Z13.220 Encounter for screening for lipoid disorders (principal); I10 Essential (primary) hypertension; F10.10 Alcohol abuse, uncomplicated; E46 Unspecified protein-calorie malnutrition; K21.9 Gastro-esophageal reflux disease without esophagitis; R79.89 Other specified abnormal findings of blood chemistry; Z13.21 Encounter for screening for nutritional disorder
CPT/HCPCS: 36415; 80053; 80061; 81001; 81003; 82306; 82607; 82746; 83540; 83880; 84443; 85025

== ENCOUNTER 2025-07-14 16:02 | Outpatient (AMB) | payer MEDICARE, MEDICAID, SELFPAY ==
--- NOTE | 2025-07-14 16:12 | A.OFFPC_ITS ---
Vital Signs 07/14/25 16:13 Height 5 ft 3 in Weight 82 lb 0.191 oz BMI 14.5 BP 90/64 Blood Pressure Location Lt brachial Position Sitting Respiration 18 Pulse 84 Pulse Source Pulse Oximeter Temp Source Temporal Artery Scan Pulse Oximetry (%) 96 Oxygen Delivery Method Room Air Intake Visit Reasons: htn/malnutrition/gout/chronic GERD Door Installer Required: No Accompanied by: Self / Same As Patient Allergies No Known Allergies (No Known Allergies*) Allergy (Verified 07/14/25 16:36) Tobacco use date assessed: 07/14/25 Fall risk assessment: No Falls in past year Last assessed Fall Risk: 07/14/25 Dental Screening Dental Screen Date: 07/14/25 Did you have a dental visit in the last 12 months?: No Did you have a dental problem in the last 6 months where you did not have access to dental care?: No Was dental information given to patient?: Patient has dentist HPI htn/malnutrition/gout/chronic GERD HPI Details The patient is a 79-year-old male with past medical history of low back pain, right clavicle fracture, fracture of the right olecranon process, alcohol use disorder, chronic GERD, hypertension, gout, malnutrition presenting for follow up appointment for chronic conditions Patient reports that he is still having low back pain even with using his current medication regimen He reports that he does not use the Celebrex whenever he takes the allopurinol for gout vice versa Reports that bilateral ears feels clogged and would like them to be evaluated Recent labs reviewed with the patient, the patient was noted to have an elevated BNP in the 5000s and decreased kidney function with a GFR of 55 decreased from greater than 60. Creatinine increase from 0.77-1.26, the patient BUN also increased from 32-45 indicating poor fluid intake Patient reports shortness of breath with exertion on and off. He denies any lower leg swelling or coughing. Denies chest pain or heart palpitation [facility] Medical History Comminuted fracture of right humerus Screening for hypercholesterolemia Hypertension Gout Hx of essential hypertension Surgical History History of total right hip arthroplasty Family History Mother Ovarian cancer Father Heart attack Social History Household Members: None Housing: Apartment Do you presently have visiting nurse or other home services: No Alcohol intake: current Alcohol intake frequency: a few times a month Alcohol type: beer and hard liquor Comment: COUNTS CORRECT Patient Tobacco Use Status: Former Tobacco user Tobacco use type: Cigarette Cigarette Packs Per Day: 0.25 Cigarettes Per Day: 1 Years Smoked: 55 e-Cigarette/Vaping Use: Never Used Second Hand Smoke Exposure: Yes service: No Current occupational status: retired Cognitive needs: Yes (cane/walker) Hearing needs: No Vision needs: Yes (glasses) Questionnaire PHQ-9 Over the last 2 weeks, how often have you been bothered by any of the following problems? 1. Little interest or pleasure in doing things: not at all 2. Feeling down, depressed, or hopeless: not at all 3. Trouble falling or staying asleep, or sleeping too much: nearly every day 4. Feeling tired or having little energy: not at all 5. Poor appetite or overeating: not at all 6. Feeling bad about yourself - or that you are a failure or have let yourself or your family down: not at all 7. Trouble concentrating on things, such as reading the newspaper or watching television: not at all 8. Moving or speaking so slowly that other people could have noticed. Or the opposite - being so fidgety or restless that you have been moving around a lot more than usual: not at all 9. Thoughts that you would be better off or of hurting yourself in some way: not at all Total score: 3 Depression Screening Interpretation: Positive Depression Screening Done: Yes Source: Developed by Drs. King García, Amrita Macdonald, David Larios and colleagues, with an educational marcella from [employer]. Thrive Questionnaire Date Thrive assessed: 07/14/25 I am a: Patient What is your living situation today?: I have a steady place to live Within the past 12 months, did the food you bought not last and you didn't have the money to get more?: I choose not to answer this question Within the past 12 months, did you worry whether your food would run out before you got money to buy more?: Never true Do you have trouble paying for medicines?: No Do you have trouble getting transportation to medical appointments?: No Do you have trouble paying your heating and electricity bill?: No Do you have trouble taking care of your child, family member or friend?: No Do you have trouble with day-to-day activities such as bathing, preparing meals, shopping, managing finances, etc.?: Yes Are you currently unemployed and looking for a job?: Yes Are you interested in more education?: No Please select the resources that you would like help with: None Currently or been in a relationship where the following occur: I choose not to answer THRIVE Score: 0 AUDIT C Alcohol Use Questionnaire (AUDIT-C) 1. How often do you have a drink containing alcohol?: Monthly or less 2. How many drinks containing alcohol do you have on a typical day when you are drinking?: 1 or 2 3. How often do you have six or more drinks on one occasion?: Less than monthly Total Score: 2 SRAVAN-7 AMB Questionnaire SRAVAN-7 Date SRAVAN - 7 assessed: 04/25/25 Feeling nervous, anxious, or on edge: 0 = Not at all Not being able to stop or control worryin = Not at all Worrying too much about different things: 0 = Not at all Trouble relaxin = Not at all Being so restless that it is hard to sit still: 0 = Not at all Becoming easily annoyed or irritable: 0 = Not at all Feeling afraid as if something awful might happen: 0 = Not at all Total SRAVAN-7 score (0-4 normal; 5-9 mild; 10-14 moderate; 15-21 severe): 0 Source: Developed by Drs. King García, Amrita Macdonald, David Larios and colleagues, with an educational marcella from [employer]. Review of Systems Const Denies body aches, Denies chills, Denies fever(s), Denies headache(s), Denies poor appetite, Reports weakness and Reports weight loss Eyes Reports no additional complaints ENT Denies dysphagia, Denies dizziness, Denies headache(s), Denies odynophagia and Reports other (Bilateral ear fullness) Card Denies chest pain, Denies syncope, Denies edema, Denies irregular heart rhythm, Denies lightheadedness and Denies dyspnea Resp Denies cough and Denies dyspnea GI Denies abdominal pain, Denies constipation, Denies dysphagia, Denies diarrhea, Denies nausea, Denies odynophagia and Denies vomiting Reports no additional complaints Musc Reports back pain Skin/Breast Reports system reviewed and no additional complaints, except as documented Neuro Denies dizziness, Denies syncope, Denies headache(s) and Reports weakness Psych Reports no additional complaints Physical exam (Primary Care) Vital Signs: Last Vital Signs Pulse 84 07/14/25 16:13 Resp 18 07/14/25 16:13 BP 90/64 07/14/25 16:13 Pulse Ox 96 07/14/25 16:13 Oxygen Delivery Method Room Air 07/14/25 16:13 BMI result Body Mass Index 14.5 Tobacco/Smoking Status: Tobacco use Status Tobacco use date assessed 07/14/25 07/14/25 16:17 Patient Tobacco Use Status Former Tobacco user 07/14/25 16:17 Tobacco use type Cigarette 07/14/25 16:17 e-Cigarette/Vaping Use Never Used 07/14/25 16:17 PHQ-9: PHQ-9 Score PHQ-9: Total score 3 07/14/25 16:25 Depression Screening Interpretation: Positive Thrive Assessment: Date of Thrive Assessment Date Thrive assessed 07/14/25 07/14/25 16:25 Currently or been in a relationship where the following occur: I choose not to answer Const General: cooperative, healthy appearing, comfortable and no acute distress Orientation/consciousness: patient oriented x3 HENMT Head: Yes normocephalic Ears: hearing grossly normal bilaterally and Abnormal EAC present excessive cerumen bilateral, erythema on the left and EAC tenderness on the left General nose exam: external nose not normal Eyes General: appearance normal, both eyes and all related structures Conjunctivae: conjunctivae normal Neck Neck: Yes full ROM and Yes no lymphadenopathy Resp Effort & Inspection: normal respiratory effort Auscultation: clear to auscultation bilaterally, no crackles, no rales, no rhonchi, no wheezes and diminished lung sounds bilateral in the lower lung carroll Cardio Rate: regular rate Rhythm: regular rhythm General: Yes no CVA tenderness Back/Spine/Pelvis Back: no CVA tenderness Thoracic/Lumbar Spine: lumbar spinal tenderness Skin General skin exam: no rashes or lesions noted Neuro General: patient oriented x3 Gait exam (Neuro): Shuffling gait present and Assisted gait required Gait assisted method: walker (With a seat) Extrem General: Yes normal to inspection, Yes full ROM and No edema Right lower extremity: full ROM; no edema Left lower extremity: full ROM; no edema Psych Affect: normal affect Attitude: cooperative Insight: Good insight present (Psych) Judgement: Good judgement present (Psych) Results Reviewed Results Reviewed: Laboratory Tests 06/19/25 09:30 WBC 9.7 RBC 3.96 L D Hgb 12.2 L D Hct 36.3 L D MCV 91.7 MCH 30.8 MCHC 33.6 RDW 17.0 H Plt Count 212 Sodium 142 Potassium 4.5 D Chloride 107 Carbon Dioxide 25 Anion Gap 15 BUN 45 H Creatinine 1.26 Estimated GFR 55 Fasting Glucose 93 Calcium 9.3 D Iron 91 TIBC 208 L % Saturation 44 Unsat Iron Binding 117 Total Bilirubin 0.7 AST 38 H ALT 25 Alkaline Phosphatase 115 NT-Pro-B Natriuret Pep 5419.9 H Total Protein 6.8 Albumin 4.0 Triglycerides 97 Cholesterol 133 LDL Cholesterol, Calc 54 HDL Cholesterol 60 Vitamin B12 > 2000 H 25-OH Vitamin D Total 48.8 Folate 13.4 TSH 1.37 Urine Color Yellow Urine Appearance Clear Urine pH 5.5 Ur Specific [place] 1.020 Urine Protein 30 (1+) H Urine Glucose (UA) Negative Urine Ketones Negative Urine Blood Negative Urine Nitrite Negative Ur Leukocyte Esterase Negative Urine RBC 0-2 Urine WBC 0-5 Ur Squamous Epith Cells 0-2 Urine Bacteria None Seen Hyaline Casts 0-2 Coding Level of Care Code Est Pt Level 4 (75386) Diagnoses Chronic GERD K21.9 Malnutrition, unspecified type E46 Malnutrition type: unspecified type Hypertension, unspecified type I10 Hypertension type: unspecified Alcohol use disorder, mild, abuse F10.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, unspecified site [id number] Gout site: unspecified site Gout etiology: idiopathic Chronicity: chronic Presence of tophus: without tophus Closed fracture of olecranon process of right ulna, initial encounter S52.021A Encounter type: initial encounter Fracture type: closed Closed nondisplaced fracture of right clavicle with routine healing, unspecified part of clavicle, subsequent encounter S42.001D Encounter type: subsequent encounter Clavicle location: unspecified part of clavicle Fracture type: closed Fracture alignment: nondisplaced Fracture healing: with routine healing Closed fracture of right hip with routine healing, subsequent encounter S72.001D Encounter type: subsequent encounter Fracture healing: with routine healing Closed fracture of right inferior pubic ramus with routine healing, subsequent encounter S32.591D Encounter type: subsequent encounter Fracture type: closed Fracture healing: with routine healing Closed fracture of superior ramus of right pubis with routine healing, subsequent encounter S32.511D Encounter type: subsequent encounter Fracture type: closed Fracture healing: with routine healing Fall, subsequent encounter W19.XXXD Encounter type: subsequent encounter Elevated brain natriuretic peptide (BNP) level R79.89 SOB (shortness of breath) on exertion R06.02 Elevated liver enzymes R74.8 Excessive cerumen in both ear canals H61.23 Otitis externa of left ear, unspecified chronicity, unspecified type H60.92 Otitis externa type: unspecified type Chronicity: unspecified Left-sided low back pain without sciatica, unspecified chronicity M54.50 Chronicity: unspecified Back pain laterality: left Sciatica presence: without sciatica Time Spent (min) 43 Assessment & Plan Assessment & Plan (1) Chronic GERD: Code(s): K21.9 - Gastro-esophageal reflux disease without esophagitis Category: Medical Plan: Do not eat meals or drink carbonated beverages within 3 hr of bedtime Decrease the amount of fried, fatty, and spicy foods to decrease gastric acid production Raise the head of the bed using 4 to 6-inch blocks, especially if nocturnal symptoms are present Lose weight if indicated; avoid tight-fitting clothing, especially around the waist Avoid foods that relax the Lower esophageal sphincter (chocolate, peppermint, high-fat foods etc.,) Continue omeprazole 20 mg daily (2) Malnutrition: Code(s): E46 - Unspecified protein-calorie malnutrition Category: Medical Qualifiers: Malnutrition type: unspecified type Qualified Code(s): E46 - Unspecified protein-calorie malnutrition Plan: Patient appears well-nourished. This nephew reports that the patient isn't eating much of anything and would like to see if the patient could have some form of supplements Ensure plus ordered and the patient reports that he is taking this 3 times a day. (3) Hypertension: Comment: 20 min reviewing chart evaluating patient and documenting; hold rx Code(s): I10 - Essential (primary) hypertension Category: Medical Qualifiers: Hypertension type: unspecified Qualified Code(s): I10 - Essential (prim shanta) hypertension Plan: BP 90/64 Denies dizziness or lightheadedness Reinforced low-salt diet Encouraged fluids hydration. Per patient, he is only drinking 2 16 oz water bottles/day (4) Alcohol use disorder, mild, abuse: Code(s): F10.10 - Alcohol abuse, uncomplicated Category: Medical Plan: Encouraged cessation (5) Gout: Code(s): M10.9 - Gout, unspecified Category: Medical Qualifiers: Gout site: unspecified site Gout etiology: idiopathic Chronicity: chronic Presence of tophus: without tophus Qualified Code(s): M1A.00X0 - Idiopathic chronic gout, unspecified site, without tophus (tophi) Plan: Denies joints pain Continue allopurinol 300 mg daily We will place medication on hold due to decrease kidney function until labs are repeated the further evaluate (6) Fracture of right olecranon process: Code(s): S52.021A - Displaced fracture of olecranon process without intraarticular extension of right ulna, initial encounter for closed fracture Category: Medical Qualifiers: Encounter type: initial encounter Fracture type: closed Qualified Code(s): S52.021A - Displaced fracture of olecranon process without intraarticular extension of right ulna, initial encounter for closed fracture Plan: Non operation treatment. Plans to use arm as tolerated however no lifting. He should not forced his range of motion beyond his baseline. Follow up with Ortho pedics as scheduled (7) Right clavicle fracture: Code(s): S42.001A - Fracture of unspecified part of right clavicle, initial encounter for closed fracture Category: Medical Qualifiers: Encounter type: subsequent encounter Clavicle location: unspecified part of clavicle Fracture type: closed Fracture alignment: nondisplaced Fracture healing: with routine healing Qualified Code(s): S42.001D - Fracture of unspecified part of right clavicle, subsequent encounter for fracture with routine healing Plan: Patient had a clavicle fracture to conservative management. He should work with physical therapy for scapular and posterior all training. (8) Closed fracture of right hip: Code(s): S72.001A - Fracture of unspecified part of neck of right femur, initial encounter for closed fracture Category: Medical Qualifiers: Encounter type: subsequent encounter Fracture healing: with routine healing Qualified Code(s): S72.001D - Fracture of unspecified part of neck of right femur, subsequent encounter for closed fracture with routine healing Plan: right hip lisseth on 12/21/[address] Alejandro. Patient reports that he struggles to walk and that he drags his leg. He continues working with at home therapy. (9) Fracture of right inferior pubic ramus: Code(s): S32.591A - Other specified fracture of right pubis, initial encounter for closed fracture Category: Medical Qualifiers: Encounter type: subsequent encounter Fracture type: closed Fracture healing: with routine healing Qualified Code(s): S32.591D - Other specified fracture of right pubis, subsequent encounter for fracture with routine healing Plan: Right neck of femoral close fracture. Continue physical and occupational therapy for gait training strengthening and ADLs. (10) Fracture of right superior pubic ramus: Code(s): S32.511A - Fracture of superior rim of right pubis, initial encounter for closed fracture Category: Medical Qualifiers: Encounter type: subsequent encounter Fracture type: closed Fracture healing: with routine healing Qualified Code(s): S32.511D - Fracture of superior rim of right pubis, subsequent encounter for fracture with routine healing Plan: Right pubis fracture weight-bearing as tolerated. Continue home physical therapy (11) Fall: Code(s): W19.XXXA - Unspecified fall, initial encounter Category: Medical Qualifiers: Encounter type: subsequent encounter Qualified Code(s): W19.XXXD - Unspecified fall, subsequent encounter Plan: Status post fall on 12/19/2024. That resulted with multiple fractures the right side. Patient underwent surgical procedure and is still working with PT and OT for gait training in ADLs (12) Elevated brain natriuretic peptide (BNP) level: Code(s): R79.89 - Other specified abnormal findings of blood chemistry Category: Medical Plan: Pro BNP 5419.9 Lung sounds clear and diminished in the bases No leg swelling noted The patient is cachectic appearing We will repeat CMP, chest x-ray ordered, echocardiogram ordered We will have the patient return in 2 weeks to be re-evaluated (13) SOB (shortness of breath) on exertion: Code(s): R06.02 - Shortness of breath Category: Medical Plan: Reports intermittent shortness of breath No evidence of fluid overload accept elevated pro BNP in the 5000s We will order chest x-ray to further evaluate this (14) Elevated liver enzymes: Code(s): R74.8 - Abnormal levels of other serum enzymes Category: Medical Plan: Patient has a history of longstanding alcohol use His liver enzymes has been elevated for a while, and has been trending down since the patient decreased is alcohol consumption Continue avoiding alcohol, limit Tylenol or medications containing Tylenol We will continue to monitor (15) Excessive cerumen in both ear canals: Code(s): H61.23 - Impacted cerumen, bilateral Category: Medical Plan: Removed a significant amount of cerumen from bilateral ear with lighted curette (16) External otitis of left ear: Code(s): H60.92 - Unspecified otitis externa, left ear Category: Medical Qualifiers: Otitis externa type: unspecified type Chronicity: unspecified Qualified Code(s): H60.92 - Unspecified otitis externa, left ear Plan: After removal of cerumen, left ear canal noted to be erythematous and tender to touch Ofloxacin 0.3% ear drops ordered (17) Low back pain: Code(s): M54.50 - Low back pain, unspecified Category: Medical Qualifiers: Chronicity: unspecified Back pain laterality: left Sciatica presence: without sciatica Qualified Code(s): M54.50 - Low back pain, unspecified Plan: Chronic low back pain. The patient was taken Celebrex 200 mg b.i.d. p.r.n. This medication was discontinued due to decreased kidney function Tramadol 25 mg b.i.d. p.r.n. was ordered. Instructed the patient to only take his medication when needed. Orders: Orders Erythrocyte Sedimentation Rate Today I10 - Essential (primary) hypertension, N28.9 - Disorder of kidney and ureter, unspecified, R79.89 - Other specified abnormal findings of blood chemistry Uric Acid Today I10 - Essential (primary) hypertension, N28.9 - Disorder of kidney and ureter, unspecified, R79.89 - Other specified abnormal findings of blood chemistry NT Pro B Type Natriuretic Pept Today I10 - Essential (primary) hypertension, N28.9 - Disorder of kidney and ureter, unspecified, R79.89 - Other specified abnormal findings of blood chemistry XR chest 2V Today R06.02 - Shortness of breath, R79.89 - Other specified abnormal findings of blood chemistry Comprehensive [place]. Panel Fast Today I10 - Essential (primary) hypertension, N28.9 - Disorder of kidney and ureter, unspecified, R79.89 - Other specified abnormal findings of blood chemistry CRP High Sensitivity Today I10 - Essential (primary) hypertension, N28.9 - Disorder of kidney and ureter, unspecified, R79.89 - Other specified abnormal findings of blood chemistry CA echo transthoracic complete Today R06.02 - Shortness of breath, R79.89 - Other specified abnormal findings of blood chemistry Medications: New tramadol 25 mg PO BID PRN 30 tabs 0RF pain 30 days ofloxacin 0.3% 10 drps otic (ears) Q12H 10 mL 0RF 14 days Discontinued celecoxib (Celebrex) Discontinued Reason: Doctor's Order 200 mg PO BID PRN 60 caps 1RF pain On Hold allopurinol Hold Comment: Doctor's Order 300 mg PO DAILY 90 tabs 0RF
[2025-07-14 16:13] VITALS: BP 90/64; PULSE 84; RESP 18; O2SAT 96; BMI 14.5
== END 2025-07-14 17:18 | disposition home or self-care (01) ==
LOC: HO.HMCH 16:03
DX: K21.9 Gastro-esophageal reflux disease without esophagitis (principal); E46 Unspecified protein-calorie malnutrition; I10 Essential (primary) hypertension; F10.10 Alcohol abuse, uncomplicated; M1A.00X0 Idiopathic chronic gout, unspecified site, without tophus (tophi); S52.021A Displaced fracture of olecranon process without intraarticular extension of right ulna, initial encounter for closed fracture; S42.001D Fracture of unspecified part of right clavicle, subsequent encounter for fracture with routine healing; S72.001D Fracture of unspecified part of neck of right femur, subsequent encounter for closed fracture with routine healing; S32.591D Other specified fracture of right pubis, subsequent encounter for fracture with routine healing; S32.511D Fracture of superior rim of right pubis, subsequent encounter for fracture with routine healing; W19.XXXD Unspecified fall, subsequent encounter; R79.89 Other specified abnormal findings of blood chemistry; R06.02 Shortness of breath; R74.8 Abnormal levels of other serum enzymes; H61.23 Impacted cerumen, bilateral; H60.92 Unspecified otitis externa, left ear; M54.50 Low back pain, unspecified

== ENCOUNTER → 2025-07-14 16:02 | Outpatient (BNVA) | payer MEDICARE, MEDICAID, SELFPAY | DX: K21.9 Gastro-esophageal reflux disease without esophagitis (principal); E46 Unspecified protein-calorie malnutrition; I10 Essential (primary) hypertension; F10.10 Alcohol abuse, uncomplicated; S52.021D Displaced fracture of olecranon process without intraarticular extension of right ulna, subsequent encounter for closed fracture with routine healing; S72.001D Fracture of unspecified part of neck of right femur, subsequent encounter for closed fracture with routine healing; S32.511D Fracture of superior rim of right pubis, subsequent encounter for fracture with routine healing; W19.XXXD Unspecified fall, subsequent encounter; R79.89 Other specified abnormal findings of blood chemistry; R84.7 Abnormal histological findings in specimens from respiratory organs and thorax; H61.23 Impacted cerumen, bilateral; H60.92 Unspecified otitis externa, left ear; M54.50 Low back pain, unspecified | CPT/HCPCS: 99212 ==

== ENCOUNTER → 2025-07-18 13:47 | Outpatient (REF) | payer MEDICARE, MEDICAID, SELFPAY ==
--- NOTE | 2025-07-18 13:57 | CA_ITS ---
Transthoracic Echocardiogram Patient (Last, First, Middle): Rikki Razo, Gender: Male Date of : 1945 Age: 79 Procedure Date: 07/18/2025 Procedure Type: Transthoracic Echocardiogram Location: OP Height: 152.4 cm Weight: 39.01 kg BSA: 1.30 m2 Heart Rate: bpm BP: 120 / 60 mmHg Director Of Security: Referring MD: Ben Dill [employer]ACLE [employer] DEVELOPER-C Symptoms: R06.02 Shortness of Breath, Elevated BNP Study Quality: Fair ECG Rhythm: Sinus Conclusions: - The left ventricular systolic function is low normal. The visually estimated ejection fraction is between 50-55%. - No obvious valvular pathology seen on this study. Findings Left Ventricle Normal left ventricular cavity size. There is mildly increased left ventricular wall thickness. The left ventricular systolic function is low normal. The visually estimated ejection fraction is between 50-55%. Diastolic function is normal for age. Right Ventricle Normal right ventricular cavity size. TAPSE measurement off axis. Atria Both atria are normal in size. Aortic Valve There is mild calcification of the aortic valve. There is no aortic valve stenosis. There is trace (trivial) aortic valve regurgitation. Mitral Valve The mitral valve appears normal. There is no mitral valve regurgitation. There is no mitral valve stenosis. Pulmonic Valve The pulmonic valve was not well visualized. Tricuspid Valve There is trace tricuspid valve regurgitation. There is no evidence of pulmonary hypertension. Great Vessels The asc aorta is normal in size. Venous The inferior vena cava is normal in size and collapses greater than 50% with inspiration. Pericardium/Pleural There is no evidence of pericardial effusion. Prior Study Comparison No significant change compared to prior study dated: 12/26/2024. Recommendations, Care & Conclusions No obvious valvular pathology seen on this study. Measurements 2D Linear Measurements IVSd: 1.06 0.6-0.9/0.6-1.0 cm LVIDd: 3.11 3.9-5.3/4.2-5.9 cm LVIDd Index: 2.39 2.4-3.2/2.2-3.1 cm/m2 LVIDs: 2.64 2.0-3.6 cm LVPWd: 1.05 0.7-1.1 cm Ao Root: 3.30 2.1-3.5 cm LA Diam: 2.80 2.7-3.8/3.0-4.0 cm LAIDs Index: 2.15 1.5-2.3 cm/m2 LV Mass: 116.64 67-162/88-224 g LV Mass Index: 89.73 43-95/49-115 g/m2 LVOT Diam: 2.10 3.0+(-)1.3 cm 2D Systolic Function EF 4C: 56.90 >55% Mitral Valve MV Pk E: 0.39 MV PK A: 0.62 MV Decel Time: 95.00 E/A: 0.60 E'Lateral: 4.46 E'Medial: 3.48 E/E' Med: 11.10 E/E' Lat: 8.70 PHT: 28.00 MVA PHT: 7.86 Decel [place]: 4.08 Aortic Valve AoV Pk Christiano: 0.71 AoV Mn Christiano: 0.46 AoV VTI: 0.15 AoV Pk Grad: 2.00 Aov Mn Grad: 1.00 JACLYN Cont.VTI: 2.23 LVOT LVOT Pk Christiano: 0.40 LVOT Mn Christiano: 0.27 LVOT VTI: 0.10 LVOT Pk Grad: 1.00 LVOT Mn Grad: 0.00 LVOT Diam: 2.10 LVOT Area: 3.46 Diastolic Function MV Pk E: 0.39 MV Pk A: 0.62 E/A: 0.60 E'Medial: 3.48 E/E' Med: 11.10 E' Laterial: 4.46 E/E' Lat: 8.70 Tricuspid Valve TR Pk Christiano: 1.42 TR Pk Grad: 8.00 RA Press: 3.00 RVSP: 11.00 Great Vessels Aorta Ao Root-2D: 3.30 2.0-3.7 cm Ao Asc: 3.30 2.1-3.4 cm Pulmonary Valve PV Pk Christiano: 0.71 Peak PV Grad: 2.00 Updated in Other Vendor System with Status of Final Shan Smith MD electronically signed on 07/19/2025 12:06:03 PM with status of Final
--- OUTSIDE RECORDS SUMMARY | 2025-07-18 18:01 | XMS_ITS ---
Author Organization [facility] Care Team Providers Care Video Journalist Name Role Phone Ivan, Waqas Unavailable Unavailable Leia Mccann Unavailable Unavailable Cindy Thomas Unavailable Allergies and adverse reactions No Known Allergies Care Team Name Role Address Phone Organization Dates Waqas [facility] [address], [address], [place] (Office): [phone] (Fax): [phone] [facility] 03/13/2023 - 04/21/2023 Leia Mccann [address] [facility] [address], [place], [place], [address], [facility] (Office): [facility] 03/13/2023 - 04/21/[address] [facility] [place] 03/13/2023 - 04/21/2023 Mental Status Section Date Assessment Total Score Description 04/21/2023 CAM 0 No delirium ind icated 03/20/2023 BIMS 13 cognitively int act CAM 0 No delirium ind icated PHQ-9 09 mild depression Insurance Providers Coverage Status Coverage Type Relationship to Subscriber Member Identifier Subscriber Identifier Group Identifier Payer Identifier and Other information 2023 Code: 51 Code System OID:[id number] .[id number]. 5 Code System Name: Source of Payment Typology (PHDSC) Display: Managed Care (Private) Translation: Code: HM Code System: OID:[id number] .[id number]. 1336 Code System Name: Insurance Type Code ([id number]) Display Name: Health Maintenance Organization (HMO) Plan Code: SELF Code System Name: HL7 RoleCode Code System OID:[id number] .[id number] Display Name: Self [id number] Root: [id number] Payer Name: [facility] Address: [address] [address] City: [place] State: [place] Country: [facility] Code: 2 Code System OID:[id number] .[id number]. 5 Code System Name: Source of Payment Typology (PHDSC) Display: Medicaid Translation: Code: 48 Code System: OID:[id number] .[id number]. 1336 Code System Name: Insurance Type Code ([id number]) Display Name: Medicaid Problems Problem # Description Date of onset Resolved Date Code CodeSystem Concern Status 1 ACUTE METABOLIC ACIDOSIS 03/13/[address] active 2 ALCOHOL DEPENDENCE, UNCOMPLICATED 03/13/[address] active 3 ALCOHOL USE, UNSPECIFIED WITH WITHDRAWAL, UNSPECIFIED 03/13/[address] active 4 ANEMIA, UNSPECIFIED 03/13/[address] active 5 DYSARTHRIA AND ANARTHRIA 03/13/[address] active 6 ELEVATED WHITE BLOOD CELL COUNT, UNSPECIFIED 03/13/[address] active 7 ESSENTIAL (PRIMARY) HYPERTENSION 03/13/[address] active 8 FRACTURE OF SUPERIOR RIM OF RIGHT PUBIS, SUBSEQUENT ENCOUNTER FOR FRACTURE WITH ROUTINE HEALING 03/13/[address] active 9 GASTRO-ESOPHAGEAL REFLUX DISEASE WITHOUT ESOPHAGITIS 03/13/[address] active 10 GOUT, UNSPECIFIED 03/13/[address] active 11 METABOLIC ENCEPHALOPATHY 03/13/[address] active 12 OTHER ACIDOSIS 03/13/[address] act [place] 13 OTHER SPECIFIED NONINFECTIVE GASTROENTERITIS AND COLITIS 03/13/[address] active 14 UNSPECIFIED FALL, SUBSEQUENT ENCOUNTER 03/13/[address] active 15 UNSPECIFIED FRACTURE OF UPPER END OF RIGHT HUMERUS, SUBSEQUENT ENCOUNTER FOR FRACTURE WITH ROUTINE HEALING 03/13/[address] active Reason for Referral No Reasons for Referral Entered Social History Social History Observation Description Start Date End Date Code Code System Current Smoking Status Tobacco smoking consumption unknown 244641616 SNOMED CT Sex Assigned At Male 1945 71460-7 [facility] Gender Identity Sexual Orientation Vital Signs Code Code System Vitals Name Values and Units Timing Information 04966-2 [facility] Pain Level Value=0.0 04/23/2023 72834-3 [facility] Weight Value=89.2 Units=Lbs 0 12/2022 9279-1 [facility] Respiratory Rate Value=18.0 Units=/m in 04/16/2023 8462-4 [facility] Blood Pressure-Diastolic Value=77 Un its=mmHg 04/16/2023 8480-6 [facility] Blood Pressure-Systolic Hdlvq=036 Un its=mmHg 04/16/2023 8310-5 [facility] Body Temperature Value=98.1 Units= F 04/16/2023 8867-4 [facility] Heart rate Value=93.0 Units=/min 10/2022 98147-8 [facility] O2 % BldC Oximetry Value=98.0 Units= % 04/16/2023 8302-2 [facility] Height Value=65.0 Units=Inches 03/10/2023
== END ==
LOC: HO.CARD 13:47
DX: R06.02 Shortness of breath (principal); R79.89 Other specified abnormal findings of blood chemistry
CPT/HCPCS: 93306

== ENCOUNTER → 2025-07-18 13:57 | Outpatient (BNV) | payer MEDICARE, MEDICAID, SELFPAY | PROVIDERS: Visit Provider Internal Medicine | DX: R06.02 Shortness of breath (principal); I35.8 Other nonrheumatic aortic valve disorders | CPT/HCPCS: 93306 ==

== ENCOUNTER 2025-08-01 13:06 | Outpatient (AMB) | payer MEDICARE, MEDICAID, SELFPAY ==
--- NOTE | 2025-08-01 13:09 | A.OFFPC_ITS ---
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 Instructions: Doctor's Order xssixrpz-gxxfshmpr-nuhofxm HMB 7-7-1.5 gram (Gonzalez) orally; DIRECTED bisacodyl (Gentle Laxative (bisacodyl)) 10 mg GA BEDTIME docusate sodium 100 mg PO BID [ENSURE HIGH CALORIE DRINK 8 OZ FOR BREAKFAST, LUNCH AND DINNER. ] [Ensure plus As directed Take drink 1 ensure plus 6 times a day to substitute for small meals] ferrous sulfate 324 mg PO DAILY ofloxacin 0.3% 10 drps otic (ears) Q12H 14 days omeprazole 20 mg PO DAILY polyethylene glycol 3350 17 grams PO DAILY tramadol 25 mg PO BID PRN 30 days Tobacco use date assessed: 08/01/25 Fall risk assessment: No Falls in past year Last assessed Fall Risk: 08/01/25 Dental Screening Dental Screen Date: 08/01/25 Did you have a dental visit in the last 12 months?: No Did you have a dental problem in the last 6 months where you did not have access to dental care?: No Was dental information given to patient?: Patient has dentist HPI HPI Comments History of Present Illness Details The patient is an 79 year old male presenting with anorexia and unintentional weight loss. He reports having no appetite and never feeling hungry. He states that food feels like it does not want to go down, but he denies any difficulty swallowing. The patient has a history of alcohol use for over 30 years and currently drinks approximately one shot per day. He reports shaking when he does not consume alcohol. He acknowledges he is substituting alcohol for food, opting for a shot when he feels hungry. His nutritional intake consists of two or three Boost drinks per day without any solid food. Past medical history includes anemia, which has been attributed to alcohol's effect on nutrient absorption. A prior echocardiogram revealed low normal left ventricular systolic function , with an EF of 50-55% raising concerns for alcohol-induced heart failure was not confirmed instead his labs point to a decreased in kidney function that might be driving the elevated BNP. The patient has a history of prior hospitalizations and expresses a strong desire to avoid being hospitalized again. Social history is notable for a period of sobriety for three months while living with family, with relapse upon returning home. Health Maintenance - Discussed the importance of eating senait id food in addition to nutritional supplements to address weight loss. - Counseled on alcohol cessation and rec ommended a referral to addiction medicine for medical management of alcohol use disorder. Social History - Substance Use: The patient reports dri nking alcohol for over 30 years and acknowledges being addicted. - He currently consumes about one shot o f alcohol per day and experiences shaking when he does not drink. - He has a history of substituting alcoh ol for food. - He was previously sober for three darryl hs while living with family but relapsed after returning home. - Nutrition: Reports no appetite and is not eating solid food. - His intake is limited to two or three Boost supplements daily. - Functional Status: He reports feeling tired and has expressed passive suicidal ideation, stating it would be better for him to to end his suffering. - Family History: Patient mentions his d [id number] has schizophrenia. - All of his siblings have . Results - Echocardiogram: A past study showed lo w left ventricular systolic function. [facility] Medical History Comminuted fracture of right humerus Screening for hypercholesterolemia Hypertension Gout Hx of essential hypertension Surgical History History of total right hip arthroplasty Family History Mother Ovarian cancer Father Heart attack Social History Household Members: None Housing: Apartment Do you presently have visiting nurse or other home services: No Alcohol intake: current Alcohol intake frequency: a few times a month Alcohol type: beer and hard liquor Comment: COUNTS CORRECT Patient Tobacco Use Status: Former Tobacco user Tobacco use type: Cigarette Cigarette Packs Per Day: 0.25 Cigarettes Per Day: 1 Years Smoked: 55 e-Cigarette/Vaping Use: Never Used Second Hand Smoke Exposure: Yes service: No Current occupational status: retired Cognitive needs: Yes (cane/walker) Hearing needs: No Vision needs: Yes (glasses) Questionnaire PHQ-9 Over the last 2 weeks, how often have you been bothered by any of the following problems? Depression Screening Interpretation: Positive Depression Screening Done: Yes Source: Developed by Drs. King García, Amrita Macdonald, David Larios and colleagues, with an educational marcella from [employer]. Thrive Questionnaire Date Thrive assessed: 08/01/25 I am a: Patient What is your living situation today?: I have a steady place to live Within the past 12 months, did the food you bought not last and you didn't have the money to get more?: I choose not to answer this question Within the past 12 months, did you worry whether your food would run out before you got money to buy more?: Never true Do you have trouble paying for medicines?: No Do you have trouble getting transportation to medical appointments?: No Do you have trouble paying your heating and electricity bill?: No Do you have trouble taking care of your child, family member or friend?: No Do you have trouble with day-to-day activities such as bathing, preparing meals, shopping, managing finances, etc.?: Yes Are you currently unemployed and looking for a job?: Yes Are you interested in more education?: No Currently or been in a relationship where the following occur: I choose not to answer THRIVE Score: 0 SRAVAN-7 AMB Questionnaire SRAVAN-7 Date SRAVAN - 7 assessed: 04/25/25 Source: Developed by Drs. King García, Amrita Macdonald, David Larios and colleagues, with an educational marcella from [employer]. Review of Systems Narrative Review of Systems - Constitutional: Reports anorexia, significant weight loss, and feeling tired. - HEENT: Reports normal sense of taste. - Denies dysphagia. - Respiratory: Denies difficulty breathing. - Neurological: Reports shaking when not consuming alcohol. - Psychiatric: Expresses passive suicidal ideation as a way to end suffering. Const Denies body aches, Denies chills, Denies fever(s), Denies headache(s), Denies poor appetite, Reports weakness and Reports weight loss Eyes Reports no additional complaints ENT Denies dysphagia, Denies dizziness, Denies headache(s), Denies odynophagia and Reports other (Bilateral ear fullness) Card Denies chest pain, Denies syncope, Denies edema, Denies irregular heart rhythm, Denies lightheadedness and Denies dyspnea Resp Denies cough and Denies dyspnea GI Denies abdominal pain, Denies constipation, Denies dysphagia, Denies diarrhea, Denies nausea, Denies odynophagia and Denies vomiting Reports no additional complaints Musc Reports back pain Skin/Breast Reports system reviewed and no additional complaints, except as documented Neuro Denies dizziness, Denies syncope, Denies headache(s) and Reports weakness Psych Reports no additional complaints Physical exam (Primary Care) Vital Signs: Last Vital Signs Pulse 94 08/01/25 13:10 Resp 18 08/01/25 13:10 BP 98/60 08/01/25 13:10 Pulse Ox 97 08/01/25 13:10 Oxygen Delivery Method Room Air 08/01/25 13:10 BMI result Body Mass Index 14.1 Tobacco/Smoking Status: Tobacco use Status Tobacco use date assessed 08/01/25 08/01/25 13:17 Patient Tobacco Use Status Former Tobacco user 08/01/25 13:10 Tobacco use type Cigarette 08/01/25 13:10 e-Cigarette/Vaping Use Never Used 08/01/25 13:10 Depression Screening Interpretation: Positive Thrive Assessment: Date of Thrive Assessment Date Thrive assessed 08/01/25 08/01/25 13:17 Currently or been in a relationship where the following occur: I choose not to answer Narrative Physical Exam - General: Appears thinner compared to previous encounters, consistent with reported weight loss. - Neurologic: Shaking is noted when the patient has not had alcohol, consistent with withdrawal. Const General: cooperative, healthy appearing, comfortable and no acute distress Orientation/consciousness: patient oriented x3 HENMT Head: Yes normocephalic Ears: hearing grossly normal bilaterally and Abnormal EAC present excessive cerumen bilateral, erythema on the left and EAC tenderness on the left General nose exam: external nose not normal Eyes General: appearance normal, both eyes and all related structures Conjunctivae: conjunctivae normal Neck Neck: Yes full ROM and Yes no lymphadenopathy Resp Effort & Inspection: normal respiratory effort Auscultation: clear to auscultation bilaterally, no crackles, no rales, no rhonchi, no wheezes and diminished lung sounds bilateral in the lower lung carroll Cardio Rate: regular rate Rhythm: regular rhythm General: Yes no CVA tenderness Back/Spine/Pelvis Back: no CVA tenderness Thoracic/Lumbar Spine: lumbar spinal tenderness Skin General skin exam: no rashes or lesions noted Neuro General: patient oriented x3 Gait exam (Neuro): Shuffling gait present and Assisted gait required Gait assisted method: walker (With a seat) Extrem General: Yes normal to inspection, Yes full ROM and No edema Right lower extremity: full ROM; no edema Left lower extremity: full ROM; no edema Psych Affect: normal affect Attitude: cooperative Insight: Good insight present (Psych) Judgement: Good judgement present (Psych) Coding Level of Care Code Est Pt Level 4 (10444) Diagnoses Alcohol use disorder, mild, abuse F10.10 Elevated troponin R79.89 Weight loss R63.4 Malnutrition, unspecified type E46 Malnutrition type: unspecified type Time Spent (min) 37 Assessment & Plan Assessment & Plan (1) Alcohol use disorder, mild, abuse: Code(s): F10.10 - Alcohol abuse, uncomplicated Category: Medical (2) Elevated troponin: Code(s): R79.89 - Other specified abnormal findings of blood chemistry Category: Medical (3) Weight loss: Code(s): R63.4 - Abnormal weight loss Category: Medical (4) Malnutrition: Code(s): E46 - Unspecified protein-calorie malnutrition Category: Medical Qualifiers: Malnutrition type: unspecified type Qualified Code(s): E46 - Unspec ified protein-calorie malnutrition Plan Plan Patient was informed and verbally consented to the use of an ambient scribe for clinic note documentation during this visit. 1. Alcohol Use Disorder The patient has a more than 30-year history of alcohol use, acknowledges addiction, and experiences withdrawal symptoms such as shaking. 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 A referral will be made to Addiction Medicine to help manage his cravings with medication and facilitate a safe weaning process to avoid hospitalization. A further diagnostic workup will be performed to ensure no other underlying issues are present. 2. Anorexia And Unintentional Weight Loss The patient's poor nutritional intake, consisting only of supplements, is secondary to his alcohol use. He has been counseled on the necessity of eating solid food to prevent further physical decline and potential hospitalization. The primary intervention will be treating his alcohol addiction to improve his appetite. 3. Elevated BNP, concern for alcohol-induced heart failure There is a concern for heart failure, potentially alcohol-induced was not confirmed by echocardiogram which showing low normal left ventricular systolic function. The plan is to manage his alcohol use disorder to prevent further damages to his organs. Discussion Notes I discussed my significant concern with the patient and his family regarding his progressive weight loss and anorexia. I explained that his chronic alcohol use is suppressing his appetite and interfering with nutrient absorption, likely causing his anemia. I highlighted that continued poor intake would lead to him slowly fading away and likely requiring hospitalization, which he strongly wishes to avoid. I explained that because his body is physically dependent on alcohol, as evidenced by his shaking, it is not safe to stop drinking abruptly. Therefore, I recommended a referral to an Addiction Medicine specialist who can prescribe medication to help reduce his cravings and support a safe, gradual cessation of alcohol. The goal of this plan is to keep him out of the hospital, but I emphasized that he must do his part by engaging with the specialist and taking the prescribed medication. Patient Instructions - It is very important that you start eating solid food. - Relying only on nutritional drinks is not enough and your health will continue to decline. - We are referring you to an nerve specialist to help you stop drinking. - They can give you medication to reduce your craving for alcohol. - You must take the medication as prescribed by the specialist. - Do not stop drinking alcohol suddenly on your own, as this can be dangerous. - This plan is designed to help you get better and stay out of the hospital, but you must do your part by following these instructions. Orders: Orders Lipase Today E46 - Unspecified protein-calorie malnutrition, F10.10 - Alcohol abuse, uncomplicated, R63.4 - Abnormal weight loss, R79.89 - Other specified abnormal findings of blood chemistry HIV Ab/Ag Today R63.4 - Abnormal weight loss T Spot TB Today R63.4 - Abnormal weight loss XR abdomen 3V Today E46 - Unspecified protein-calorie malnutrition, R63.4 - Abnormal weight loss Amylase Today E46 - Unspecified protein-calorie malnutrition, F10.10 - Alcohol abuse, uncomplicated, R63.4 - Abnormal weight loss, R79.89 - Other specified abnormal findings of blood chemistry TSH reflex Free T4 Today E46 - Unspecified protein-calorie malnutrition, F10.10 - Alcohol abuse, uncomplicated, R63.4 - Abnormal weight loss, R74.8 - Abnormal levels of other serum enzymes, R79.89 - Other specified abnormal findings of blood chemistry Referrals Addiction Medicine Referral F10.10 - Alcohol abuse, uncomplicated Medications: New megestrol 400 mg (10 mL) PO DAILY 400 mL 3RF
[2025-08-01 13:10] VITALS: BP 98/60; PULSE 94; RESP 18; O2SAT 97; BMI 14.1
== END 2025-08-01 14:10 | disposition home or self-care (01) ==
LOC: HO.HMCH 13:06
DX: F10.10 Alcohol abuse, uncomplicated (principal); R79.89 Other specified abnormal findings of blood chemistry; R63.4 Abnormal weight loss; E46 Unspecified protein-calorie malnutrition

== ENCOUNTER → 2025-08-01 13:06 | Outpatient (BNVA) | payer MEDICARE, MEDICAID, SELFPAY | DX: R63.4 Abnormal weight loss (principal); F10.10 Alcohol abuse, uncomplicated; R79.89 Other specified abnormal findings of blood chemistry; E46 Unspecified protein-calorie malnutrition | CPT/HCPCS: 99212 ==